=== PATIENT | female | born 1940 | race African-American/Black ===

== ENCOUNTER → 2016-04-13 | Outpatient (CLI) | payer MEDICARE ==
--- NOTE | 2016-04-13 11:10 | XR ---
EXAMINATION TYPE: XR shoulder complete LT DATE OF EXAM: 04/13/2016 10:39 AM COMPARISON: NONE HISTORY: Left shoulder pain and numbness TECHNIQUE: Shoulder examined in 3 FINDINGS: The humeral head articulates with the glenoid. The acromio-clavicular junction is normal. No acute fractures or dislocations are evident. A follow up study can be performed 7-10 days from acute trauma for continued pain. IMPRESSION: 1. Normal Shoulder
== END | disposition home or self-care (01) ==
LOC: RADXRMAIN 10:12
PROVIDERS: ATTEND Internal Medicine
DX: M25.519 Pain in unspecified shoulder (principal); M19.90 Unspecified osteoarthritis, unspecified site

== ENCOUNTER → 2016-06-16 | Outpatient (CLI) | payer MEDICARE ==
--- NOTE | 2016-06-16 15:00 | BD ---
EXAMINATION TYPE: MG DEXA axial skeleton. DATE OF EXAM: 06/16/2016 10:29 AM COMPARISON: NONE CLINICAL HISTORY: Known osteopenia, postmenopausal female Height: 63 Weight: 228 FRAX RISK QUESTIONS: Alcohol (3 or more units per day): no Family History (Parent hip fracture): no Glucocorticoids (More than 3mos): no (Ex: prednisone, prednisolone, methylprednisolone, dexamethasone, and hydrocortisone). History of Fracture in Adulthood: yes Secondary Osteoporosis: 1. Type 1 Diabetes: no 2. Hyperthyroidism: no 3. Menopause before 45: yes 4. Malnutrition: no 5. Chronic liver disease: no Rheumatoid Arthritis: no Current Tobacco Use: no RISK FACTORS HISTORY OF: Hip Fracture (Right/Left): no Spine Fracture: no History of Wrist Fracture: left wrist Surgery to Spine/Hip(right/left)/Wrist (right/left): no Family History of Osteoporosis: no Active: no Diet low in dairy products/other sources of calcium: no Postmenopausal woman: age 41 Lost more than 2 inches in height since high school: no Frequent falls: no Poor Health: no Adrenal Insufficiency: no MEDICATIONS: diabetic meds, high bp meds Thyroid Medications: synthroid How Long: many years Additional History: EXAM MEASUREMENTS: Bone mineral densitometry was performed using the Swogo System. Bone mineral density as measured about the Lumbar spine is: ----- L1-L4(G/cm2): 1.077 T Score Values are as follows: ----- L2: -0.7 ----- L3: -0.6 ----- L4: -1.0 ----- L1-L4: -0.9 Bone mineral density baseline Bone mineral density about the R hip (g/cm2): 0.773 Bone mineral density about the L hip (g/cm2): 0.845 T Score values are as follows: -----R Neck: -1.9 -----L Neck: -1.4 -----R Total: -1.9 -----L Total: -1.3 Bone mineral density baseline IMPRESSION: Osteopenia NOTE: T-SCORE=SD OF THE YOUNG ADULT MEAN.
== END | disposition home or self-care (01) ==
LOC: RADBDWWP 10:02
PROVIDERS: ATTEND Internal Medicine
DX: M85.80 Other specified disorders of bone density and structure, unspecified site (principal); M81.0 Age-related osteoporosis without current pathological fracture
CPT/HCPCS: 77080

== ENCOUNTER → 2016-10-06 | Outpatient (CLI) | payer MEDICARE ==
--- NOTE | 2016-10-11 07:53 | MM ---
Reason for exam: screening (asymptomatic). Last mammogram was performed 1 year and 1 month ago. History: Patient is postmenopausal. Physical Findings: A clinical breast exam by your physician is recommended on an annual basis and results should be correlated with mammographic findings. MG 3D Screening Mammo W/Cad Bilateral CC and MLO view(s) were taken. Prior study comparison: September 16, 2015, bilateral MG 3d screening mammo w/cad. August 07, 2014, bilateral MG screening mammo w CAD. There are scattered fibroglandular densities. No significant changes when compared with prior studies. ASSESSMENT: Benign, BI-RAD 2 RECOMMENDATION: Routine screening mammogram of both breasts in 1 year.
== END | disposition home or self-care (01) ==
LOC: RADMAMWWP 12:49
PROVIDERS: ATTEND Internal Medicine
DX: Z12.31 Encounter for screening mammogram for malignant neoplasm of breast (principal)
CPT/HCPCS: 77063; G0202

== ENCOUNTER 2016-10-12 07:22 | Day surgery (SDC) | payer MEDICARE ==
[2016-10-06 16:11] VITALS: BMI 36.7
[~2016-10-12 07:22] MED LIST: LACTATED RINGERS 1,000 ML IV SCH
[2016-10-12 07:38] VITALS: TEMP 98.1
[2016-10-12] MEDS ORDERED: LIDOCAINE 1% 20 ML VIAL (10MG/ML) FOR IV START INTRADERMA ONE (07:48)
[2016-10-12 07:49] LABS: Glucose,Whole Blood 106 mg/dL (75-99)
[2016-10-12] MEDS ORDERED: PROPOFOL 10 MG/ML 20 ML VIAL IV ONE (07:56)
--- NOTE | 2016-10-12 08:20 | P.PCN ---
Date of Procedure: 10/12/16 Preoperative Diagnosis: Postoperative Diagnosis: Procedure(s) Performed: BRIEF HISTORY: Patient is a 76-year-old pleasant female, scheduled for an elective colonoscopy as a part of variation of prior history of colon polyps. Her last colonoscopy was 3 years ago and was noted to have a tubular adenoma. PROCEDURE PERFORMED: Colonoscopy with biopsy. PREOPERATIVE DIAGNOSIS: History of colon polyps. IV sedation per Anesthesia. PROCEDURE: After informed consent was obtained, the patient, was brought into the endoscopy unit. IV sedation was administered by Anesthesia under continuous monitoring. Digital rectal examination was normal. Initially the Olympus CF- 160 flexible video colonoscope was then inserted in the rectum, gradually advanced into the cecum without any difficulty. Careful examination was performed as the scope was gradually being withdrawn. Ileocecal valve and the appendiceal orifice were visualized and appeared normal. Prep was excellent. Mucosa of the cecum, ascending colon, transverse colon, appeared normal appeared normal. The descending colon there was a 5 mL polyp that was removed by biopsy. The rest of the descending colon, sigmoid colon, and rectum appeared normal. Diffuse scattered diverticulosis seen. Retroflexion was performed in the rectum and no lesions were seen. The patient tolerated the procedure well. IMPRESSION: 5 mm descending colon polyp status post removal by biopsy. Diffuse scattered diverticulosis. RECOMMENDATIONS: Findings of this examination were discussed with the patient as well as her family. She was advised to follow with the biopsy results. If the biopsy shows a tubular adenoma she can have a repeat colonoscopy in 5 years. Implants: Indications for Procedure: Operative Findings: Description of Procedure:
[2016-10-12 08:35] VITALS: BP 146/76; PULSE 68; RESP 18
== END 2016-10-12 09:20 | disposition home or self-care (01) ==
LOC: ORWHC2ENDO 07:22
PROVIDERS: ATTEND Internal Medicine Gastroenterology
DX: Z12.11 Encounter for screening for malignant neoplasm of colon (principal); D12.4 Benign neoplasm of descending colon; K57.30 Diverticulosis of large intestine without perforation or abscess without bleeding; Z86.010 Personal history of colon polyps; I10 Essential (primary) hypertension; E78.5 Hyperlipidemia, unspecified; E11.9 Type 2 diabetes mellitus without complications; Z79.84 Long term (current) use of oral hypoglycemic drugs; E07.9 Disorder of thyroid, unspecified; M10.9 Gout, unspecified; D64.9 Anemia, unspecified; Z79.899 Other long term (current) drug therapy; Z88.8 Allergy status to other drugs, medicaments and biological substances
CPT/HCPCS: 88305; 45380; J2704

== ENCOUNTER → 2016-11-08 | Outpatient (CLI) | payer MEDICARE ==
[2016-11-08 10:40] LABS: ALT 24 U/L (9-52); AST 15 U/L (14-36); Alkaline Phosphatase 55 U/L (38-126); Anion Gap 7 mmol/L; Blood Urea Nitrogen 34 mg/dL (7-17); Calcium 10.2 mg/dL (8.4-10.2); Carbon Dioxide 27 mmol/L (22-30); Chloride 109 mmol/L (98-107); Cholesterol 188 mg/dL (<200); Glucose 117 mg/dL (74-99); HDL Cholesterol 86 mg/dL (40-60); Non-African American GFR(MDRD) 29 (>60 ml/min/1.73 sqM); Potassium 4.5 mmol/L (3.5-5.1); Sodium 143 mmol/L (137-145); Total Bilirubin 0.3 mg/dL (0.2-1.3); Total Protein 7.2 g/dL (6.3-8.2); Uric Acid 6.8 mg/dL (3.7-7.4)
[2016-11-08 10:44] LABS: CH 26.3; CHCM 30.1; HDW 2.12; HGB 9.9 gm/dL (11.4-16.0); Hypochromasia Moderate; MCH 27.1 pg (25.0-35.0); MCHC 30.9 g/dL (31.0-37.0); MCV 87.6 fL (80.0-100.0); Mean Platelet Volume 8.2; RBC 3.66 m/uL (3.80-5.40); RDW 15.9 % (11.5-15.5); WBC 6.7 k/uL (3.8-10.6)
--- NOTE | 2016-11-08 11:00 | XR ---
EXAMINATION TYPE: XR chest 2V DATE OF EXAM: 11/08/2016 COMPARISON: 12/25/2015 TECHNIQUE: PA and lateral views submitted. HISTORY: Pain FINDINGS: The lungs are clear and there is no pneumothorax, pleural effusion, or focal pneumonia. Heart is en larged and there is ectasia of the thoracic aorta. Azygos fissure noted. Arthropathy of the shoulders . Degenerative change of the spine. IMPRESSION: 1. No acute process.
[2016-11-08 13:41] LABS: Hemoglobin A1C 6.5 % (4.2-6.1)
[2016-11-08 14:44] LABS: Urine Creatinine 78.8 mg/dL
== END | disposition home or self-care (01) ==
LOC: RADXRMAIN 09:05
PROVIDERS: ATTEND Internal Medicine
DX: I11.9 Hypertensive heart disease without heart failure (principal); E11.9 Type 2 diabetes mellitus without complications; E03.9 Hypothyroidism, unspecified; M10.9 Gout, unspecified; Z00.00 Encounter for general adult medical examination without abnormal findings
CPT/HCPCS: 36415; 71020; 80053; 80061; 82043; 82570; 83036; 84439; 84443; 84550; 85027

== ENCOUNTER → 2017-03-07 | Outpatient (CLI) | payer MEDICARE ==
[2017-03-07 10:14] LABS: Anisocytosis Slight; HGB 9.9 gm/dL (11.4-16.0); Hypochromasia Slight; MCHC 30.1 g/dL (31.0-37.0); MCV 86.5 fL (80.0-100.0); Mean Platelet Volume 7.9; Platelet Count 316 k/uL (150-450); RBC 3.81 m/uL (3.80-5.40); RDW 17.3 % (11.5-15.5); WBC 5.7 k/uL (3.8-10.6)
[2017-03-07 10:41] LABS: ALT 16 U/L (9-52); AST 15 U/L (14-36); Albumin 3.6 g/dL (3.5-5.0); Alkaline Phosphatase 56 U/L (38-126); Anion Gap 8 mmol/L; Blood Urea Nitrogen 37 mg/dL (7-17); Calcium 10.5 mg/dL (8.4-10.2); Carbon Dioxide 27 mmol/L (22-30); Chloride 108 mmol/L (98-107); Cholesterol 233 mg/dL (<200); Glucose 103 mg/dL (74-99); HDL Cholesterol 84 mg/dL (40-60); LDL Cholesterol,Calculated 135 mg/dL (0-99); Potassium 4.4 mmol/L (3.5-5.1); Sodium 143 mmol/L (137-145); Total Bilirubin 0.3 mg/dL (0.2-1.3); Total Protein 7.5 g/dL (6.3-8.2); Triglycerides 71 mg/dL (<150)
[2017-03-07 10:56] LABS: T4, Free (Free Thyroxine) 1.57 ng/dL (0.78-2.19)
[2017-03-07 16:45] LABS: Hemoglobin A1C 6.5 % (4.0-6.0)
== END | disposition home or self-care (01) ==
LOC: LABWHC1 09:22
PROVIDERS: ATTEND Internal Medicine
DX: D50.9 Iron deficiency anemia, unspecified (principal); E11.9 Type 2 diabetes mellitus without complications; E78.2 Mixed hyperlipidemia; E03.9 Hypothyroidism, unspecified
CPT/HCPCS: 36415; 80053; 80061; 83036; 84439; 84443; 85027

== ENCOUNTER → 2017-10-27 | Outpatient (CLI) | payer MEDICARE ==
[2017-10-27 08:45] LABS: HCT 31.3 % (34.0-46.0); HGB 10.1 gm/dL (11.4-16.0); MCH 27.2 pg (25.0-35.0); MCHC 32.4 g/dL (31.0-37.0); MCV 84.1 fL (80.0-100.0); Mean Platelet Volume 8.4; Platelet Count 255 k/uL (150-450); RBC 3.73 m/uL (3.80-5.40); RDW 15.8 % (11.5-15.5); WBC 5.5 k/uL (3.8-10.6)
[2017-10-27 09:07] LABS: Albumin 3.3 g/dL (3.5-5.0); Calcium 9.8 mg/dL (8.4-10.2); Potassium 4.5 mmol/L (3.5-5.1); Total Bilirubin 0.4 mg/dL (0.2-1.3); Total Protein 7.2 g/dL (6.3-8.2)
--- NOTE | 2017-10-27 09:11 | XR ---
EXAMINATION TYPE: XR chest 2V DATE OF EXAM: 10/27/2017 COMPARISON: 11/08/2016 HISTORY: Shortness of breath TECHNIQUE: Frontal and lateral views of the chest are obtained. FINDINGS: Scattered senescent parenchymal changes noted. Hyperinflation compatible with COPD. No evidence for infiltrate. No evidence for atelectasis. Heart size is stable. Mediastinal structures are stable and grossly unremarkable. No evidence for hilar prominence. Degenerative changes dorsal spine. IMPRESSION: 1. No evidence for acute pulmonary disease.
[2017-10-27 09:22] LABS: T4, Free (Free Thyroxine) 1.54 ng/dL (0.78-2.19)
[2017-10-27 17:15] LABS: Hemoglobin A1C 6.4 % (4.0-6.0)
== END ==
LOC: LABWHC1 08:13
PROVIDERS: ATTEND Internal Medicine
DX: R05 Cough (principal); Z00.00 Encounter for general adult medical examination without abnormal findings; I11.9 Hypertensive heart disease without heart failure; E11.9 Type 2 diabetes mellitus without complications; E03.9 Hypothyroidism, unspecified; E78.2 Mixed hyperlipidemia
CPT/HCPCS: 36415; 71046; 80053; 80061; 82043; 82570; 83036; 84439; 84443; 85027

== ENCOUNTER → 2018-07-12 | Outpatient (CLI) | payer MEDICARE ==
[2018-07-12 17:23] LABS: Anion Gap 6.3 mmol/L (4.00-12.00); Calcium 9.9 mg/dL (8.7-10.3); Carbon Dioxide 25.7 mmol/L (21.6-31.8); Potassium 4.6 mmol/L (3.5-5.5)
[2018-07-12 18:22] LABS: Hemoglobin A1C 6.8 % (4.0-6.0)
== END | disposition home or self-care (01) ==
LOC: LABWHC1 08:35
PROVIDERS: ATTEND Internal Medicine
DX: E78.2 Mixed hyperlipidemia (principal); I11.9 Hypertensive heart disease without heart failure; E11.9 Type 2 diabetes mellitus without complications
CPT/HCPCS: 36415; 80048; 80061; 83036

== ENCOUNTER → 2018-08-03 | Outpatient (CLI) | payer MEDICARE ==
[2018-08-03 11:23] LABS: Anisocytosis Slight; Appearance,Urine Cloudy (Clear); Bacteria,Urine Moderate /hpf; Bilirubin,Urine Negative (Negative); Blood,Urine Negative (Negative); Color,Urine Light Yellow; Glucose,Urine (UA) Negative (Negative); HCT 29.8 % (34.0-46.0); HGB 9.1 gm/dL (11.4-16.0); Ketones,Urine Negative (Negative); Leukocyte Esterase,Urine Negative (Negative); MCH 25.6 pg (25.0-35.0); MCHC 30.5 g/dL (31.0-37.0); MCV 83.8 fL (80.0-100.0); Mean Platelet Volume 7.8; Mucus,Urine Rare /hpf; Nitrite,Urine Negative (Negative); PH, Urine 5.5 (5.0-8.0); Platelet Count 269 k/uL (150-450); Protein,Urine 2+ (Negative); RBC 3.55 m/uL (3.80-5.40); RBC,Urine 1 /hpf (0-5); RDW 16.6 % (11.5-15.5); Specific Gravity,Urine 1.011 (1.001-1.035); Squamous Epithelial Cell,Urine 9 /hpf (0-4); Urobilinogen,Urine <2.0 mg/dL (<2.0); WBC 6.1 k/uL (3.8-10.6); WBC,Urine 2 /hpf (0-5)
[2018-08-03 15:50] LABS: African American GFR (CKD) 21.7 (60.0-200.0); Albumin 3.5 g/dL (3.80-4.90); Albumin/Globulin Ratio 1.09 (1.60-3.17); Anion Gap 6.9 mmol/L (4.00-12.00); BUN/Creat Ratio 18.33 Ratio (12.00-20.00); Carbon Dioxide 22.1 mmol/L (21.6-31.8); Globulin 3.2 g/dL (1.6-3.3); Phosphorus 3.7 mg/dL (2.4-5.1); Potassium 4.3 mmol/L (3.5-5.5); Total Bilirubin 0.4 mg/dL (0.3-1.2); Total Protein 6.7 g/dL (6.2-8.2)
[2018-08-03 18:42] LABS: Total Volume 24 Hour,Urine 1300 mL
[2018-08-03 19:48] LABS: Total Protein 24 Hour,Urine 1067.3 mg/24Hr
== END | disposition home or self-care (01) ==
LOC: LABWHC1 09:59
PROVIDERS: ATTEND Internal Medicine
DX: E11.9 Type 2 diabetes mellitus without complications (principal); I11.9 Hypertensive heart disease without heart failure; R94.4 Abnormal results of kidney function studies
CPT/HCPCS: 36415; 80053; 81001; 81050; 82575; 84100; 84156; 85027

== ENCOUNTER → 2018-12-31 | Outpatient (CLI) | payer MEDICARE ==
[2018-12-31 10:42] LABS: INR 0.9 (<1.2); Partial Thromboplastin Time 24.9 sec (22.0-30.0); Prothrombin Time 9.6 sec (9.0-12.0)
[2018-12-31 10:46] LABS: Anisocytosis Slight; Basophils # (A) 0.1 k/uL (0-0.2); Basophils % (A) 2 %; Eosinophils # (A) 0.1 k/uL (0-0.7); Eosinophils % (A) 2 %; HGB 8.4 gm/dL (11.4-16.0); Lymphocytes # (A) 1.4 k/uL (1.0-4.8); Lymphocytes % (A) 27 %; MCH 26.5 pg (25.0-35.0); MCV 85.6 fL (80.0-100.0); Monocytes # (A) 0.4 k/uL (0-1.0); Monocytes % (A) 7 %; Neutrophils # (A) 3.1 k/uL (1.3-7.7); Neutrophils % (A) 59 %; Platelet Count 260 k/uL (150-450); RBC 3.15 m/uL (3.80-5.40); WBC 5.2 k/uL (3.8-10.6)
[2018-12-31 11:17] LABS: Potassium 4.5 mmol/L (3.5-5.1)
== END | disposition home or self-care (01) ==
LOC: LABWHC1 09:29
PROVIDERS: ATTEND Internal Medicine
DX: R80.9 Proteinuria, unspecified (principal); Z79.01 Long term (current) use of anticoagulants
CPT/HCPCS: 36415; 80051; 82565; 84520; 85025; 85610; 85730

== ENCOUNTER 2019-01-01 08:01 | Day surgery (SDC) | payer MEDICARE ==
[2019-01-01] MEDS ORDERED: ALPRAZolam 0.25 MG TAB PO STA (08:31)
[2019-01-01 08:50] VITALS: TEMP 98.1
[2019-01-01] MEDS ORDERED: DESMOPRESSIN ACETATE 30 MCG in SODIUM CHLORIDE 0.9% 50 ML IV ONE (09:30)
--- NOTE | 2019-01-01 12:08 | CT ---
DATE OF EXAM: 01/01/2019 COMPARISON: NONE CT DLP: 1333 mGycm HISTORY: Renal failure PROCEDURE: Maximal barrier technique was utilized. After informed consent, the skin overlying a suit able path to the right kidney was localized using CT guidance, the skin was prepped and draped. Lido kenneth was used for local anesthesia. A skin carolyn made with a scalpel. Using CT guidance, a 17-gauge needle was advanced into in position at the lateral and inferior cortex of the right kidney where co axial placement of an 18-gauge needle was used and core biopsy obtained. 4 passes made in total. He mostasis was achieved. There was no immediate complication and patient remained in stable condition. Specimen submitted to Pathology. IMPRESSION: Status post CT guided core biopsy of right renal cortex, pathology pending. This procedu re performed by the undersigned.
[2019-01-01 12:47] VITALS: RESP 16
[2019-01-01 13:35] VITALS: BP 167/86; PULSE 82
== END 2019-01-01 14:00 | disposition home or self-care (01) ==
LOC: RADPROMAIN 08:01
PROVIDERS: ATTEND Nurse Practitioner Family
DX: E11.21 Type 2 diabetes mellitus with diabetic nephropathy (principal)
CPT/HCPCS: 86900; 86901; 86850; 50200; 77012; J2597; 88305; 88313; 88346; 88348; 88350

== ENCOUNTER 2019-10-30 11:35 | Day surgery (SDC) | payer MEDICARE ==
[2019-10-29 10:20] VITALS: BMI 34.7
[~2019-10-30 11:35] MED LIST changes: +DEXAMETHASONE SOD PHOSPHATE 10 MG/ML 1 ML VIAL IV ONE; +HYDROmorphone 0.5 MG/0.5 ML SYRINGE IVP PRN; +ONDANSETRON 4 MG/2 ML VIAL IVP ONE; +fentaNYL (PF) 50 MCG/ML 2 ML AMP IV PRN; +fentaNYL (PF) 50 MCG/ML 2 ML AMP IVP PRN
[2019-10-30 12:09] VITALS: TEMP 97.2
[2019-10-30] MEDS ORDERED: SODIUM CHLORIDE 0.9% 1,000 ML IV ONE ×2 (12:10→15:00)
[2019-10-30] MEDS ORDERED: LIDOCAINE 1% (10MG/ML) FOR IV START INTRADERMA ONE (12:11)
[2019-10-30] MEDS ORDERED: MIDAZOLAM 2 MG/2 ML VIAL IVP ONE (12:27)
--- NOTE | 2019-10-30 13:02 | P.ANPRN ---
Procedure Note - Anesthesia - Nerve Block Performed Left Supraclavicular Single Time Out Performed: Yes Date of Procedure: 10/30/19 Procedure Start Time: 12: Procedure Stop Time: :34 Location of Patient: PreOp Indication: Acute Post-Operative Pain, Requested by Surgeon Sedation Type: Sedate with meaningful contact maintained Preparation: Sterile Prep, Sterile Dressing Position: Supine Catheter: None Needle Types: Pajunk Needle Gauge: 20, 21 Ultrasound used to visualize needle placement: Yes Ultrasound used to observe medication spread: Yes Injectate: 0.5% Ropivacaine (see comment for volume) (30 ml + decadron 4 mg) Blood Aspirated: No Pain Paresthesia on Injection Noted: No Resistance on Injection: Normal Image Stored and Saved: Yes Events: Uneventful and Well Tolerated
[2019-10-30] MEDS ORDERED: GLYCOPYRROLATE 0.2 MG/ML 2 ML VIAL ONE (13:25)
[2019-10-30] MEDS ORDERED: fentaNYL (PF) 50 MCG/ML 2 ML AMP ONE (13:25)
[2019-10-30] MEDS ORDERED: HEPARIN SODIUM,PORCINE 5,000 UNIT/ML 1 ML VIAL ONE (13:25)
[2019-10-30] MEDS ORDERED: MIDAZOLAM 2 MG/2 ML VIAL ONE (13:25)
[2019-10-30] MEDS ORDERED: ROPIVACAINE 5 MG/ML 30 ML VIAL ONE (13:25)
[2019-10-30] MEDS ORDERED: PROPOFOL 10 MG/ML 20 ML VIAL IV ONE (13:25)
[2019-10-30] MEDS ORDERED: DEXAMETHASONE SOD PHOSPHATE 4 MG/ML 1 ML VIAL ONE (13:25)
[2019-10-30] MEDS ORDERED: LIDOCAINE 1% INJ 10MG/ML (20 ML MDV) ONE (13:25)
[2019-10-30] MEDS ORDERED: SODIUM CHLORIDE 0.9% 500 ML 500 ML with HEPARIN SODIUM,PORCINE 2,000 UNIT IV ONE ×2 (14:15)
[2019-10-30] MEDS ORDERED: ceFAZolin 2,000 MG in SODIUM CHLORIDE 0.9% 500 ML IRRIGATION ONE (14:15)
[2019-10-30] MEDS ORDERED: LIDOCAINE 1% INJ 10MG/ML (20 ML MDV) SQ ONE ×2 (14:34)
[2019-10-30] MEDS ORDERED: BUPIVACAINE (PF) 0.5% 30 ML VIAL SQ ONE ×2 (14:34)
[2019-10-30] MEDS ORDERED: THROMBIN (BOVINE) 5,000 UNIT VIAL TOPICAL ONE (15:26)
[2019-10-30] MEDS ORDERED: GELATIN SPONGE,ABSORB (LARGE) 1 EACH SPONGE TOPICAL ONE (15:26)
--- NOTE | 2019-10-30 16:29 | P.OP ---
Date of Procedure: 10/30/19 Description of Procedure: Preoperative diagnosis: [End-stage renal disease, soon to require dialysis] Postoperative diagnosis: Same Procedure: [Left upper extremity brachial artery to axillary vein graft] Surgeon: Vero Lea D.O. Anesthesia: Regional anesthetic with Mac EBL: [20 mL] IV fluids: [See anesthesia records] Urine output: [Not measured] Drains: [None] Complications: [None immediately apparent] Condition: [Stable to recovery] Operative indication and findings: [The patient is an 79-year-old female with chronic kidney disease who is going to soon be requiring dialysis therefore her hair dresser sent her for access placement. She had an ultrasound in the office which showed no adequate sizable veins in her upper extremity for fistula creation therefore a graft was chosen. Risks and benefits were discussed. She seemingly understood and was willing to proceed.] Procedure in detail: [Patient was taken to the operative suite and placed in supine position. The left upper extremity is prepped and draped in usual sterile fashion. A preprocedure timeout was performed, all parties are in agreement. The brachial artery just proximal to the antecubital space was identified on palpation and a longitudinal incision was made. It carried down with electrocautery to the fascia. The fascia was incised. The artery was identified and encircled with vessel loops. Attention was then turned to the axillary vein, previously marked portion of the location and identified with ultrasound area incision was made and the subcutaneous tissues were divided with electrocautery. The vein was identified and overlying branching veins were ligated with 3-0 silk. The vein was dissected free for a short course allow for an anastomosis and proper clamps. At that point the proposed tunnel was anesthetized and a tunneler was utilized a 4 x 7 PTFE graft was tunneled. The patient was then heparinized with 3000 units of heparin. After proper circulation of the heparin, the flow was occluded through the brachial artery. An arteriotomy was created and a large the Heather scissors to 6 mm. The anastomosis was created with 6-0 Prolene. Prior to completion of the anastomoses the arteries allowed to backbleed and flush through the graft. The anastomosis was completed. Thrombin Gelfoam was placed for hemostasis. The graft itself was flushed and flow was occluded through the graft. A Satinsky clamp was used on the vein and a venotomy was performed a large the Watts scissors. The graft was cut to proper size. A and anastomosis was created with 6-0 Prolene. Prior to completion anastomosis the clamp was removed and with a lot of backbleed. The anastomosis was completed. Flow was resumed through the graft itself which showed a good palpable thrill and good augmentation. The radial pulse remained Easilypalpable. Both areas were copiously irrigated with antibiotic solution.The subcutaneous tissues were reapproximated with 3-0 Vicryl. The skin was reapproximated with 4-0 Monocryl in running fashion. Skin glue was placed. A light dressing was placed. The patient allowed to awaken and transferred back to recovery in stable condition having tolerated her procedure well.] Plan - Discharge Summary Discharge Rx Participant: Yes New Discharge Prescriptions: New HYDROcodone/APAP 5-325MG [[place] 5-325] 1 tab PO Q6HR PRN 3 Days #12 tab PRN Reason: Pain No Action Gabapentin [Neurontin] 300 mg PO TID Ferrous Sulfate [Feosol] 325 mg PO DAILY Allopurinol [Zyloprim] 150 mg PO HS Atorvastatin [Lipitor] 20 mg PO DAILY amLODIPine [Norvasc] 10 mg PO HS Aspirin [Adult Low Dose Aspirin EC] 81 mg PO DAILY calcitrioL [Calcitriol] 0.25 mcg PO DAILY Omeprazole [PriLOSEC] 40 mg PO DAILY Levothyroxine Sodium 150 mcg PO QAM hydrALAZINE HCL [Apresoline] 100 mg PO TID Furosemide [Lasix] 20 mg PO DAILY Discharge Medication List Allopurinol [Zyloprim] 150 mg PO HS 12/25/15 [History] Ferrous Sulfate [Feosol] 325 mg PO DAILY 12/25/15 [History] Gabapentin [Neurontin] 300 mg PO TID 12/25/15 [History] Atorvastatin [Lipitor] 20 mg PO DAILY 10/06/16 [History] Aspirin [Adult Low Dose Aspirin EC] 81 mg PO DAILY 12/24/18 [History] amLODIPine [Norvasc] 10 mg PO HS 12/24/18 [History] calcitrioL [Calcitriol] 0.25 mcg PO DAILY 12/24/18 [History] Furosemide [Lasix] 20 mg PO DAILY 10/29/19 [History] Levothyroxine Sodium 150 mcg PO QAM 09/22/20 [History] Omeprazole [PriLOSEC] 40 mg PO DAILY 10/29/19 [History] hydrALAZINE HCL [Apresoline] 100 mg PO TID 10/29/19 [History] HYDROcodone/APAP 5-325MG [[place] 5-325] 1 tab PO Q6HR PRN 3 Days #12 tab 10/30/19 [Rx] Follow up Appointment(s)/Referral(s): Vero Lea DO [STAFF PHYSICIAN] - 2 Weeks Activity/Diet/Wound Care/Special Instructions: Remove wrap in 48h, may shower once removed. Discharge Disposition: HOME SELF-CARE
[2019-10-30 17:07] VITALS: BP 157/87; PULSE 68; RESP 20
== END 2019-10-30 17:30 | disposition home or self-care (01) ==
LOC: OR 11:35
PROVIDERS: ATTEND Surgery
DX: I12.0 Hypertensive chronic kidney disease with stage 5 chronic kidney disease or end stage renal disease (principal); E07.9 Disorder of thyroid, unspecified; K21.9 Gastro-esophageal reflux disease without esophagitis; Z79.82 Long term (current) use of aspirin; Z79.899 Other long term (current) drug therapy; Z88.8 Allergy status to other drugs, medicaments and biological substances
CPT/HCPCS: 36830; 64415; L8670; J2250; J1644; J1100 ×2; J0690 ×2; J2405; J2001; J3010; J2795; J2704; 64999

== ENCOUNTER 2019-12-22 17:38 | Inpatient (IN) | payer MEDICARE ==
[2019-12-22] MEDS ORDERED: FUROSEMIDE 10 MG/ML 4 ML VIAL IV STA (17:53)
[2019-12-22 18:26] LABS: ABG Base Excess -4.9 mmol/L; ABG HCO3 21 mmol/L (21-25); ABG Oxygen Saturation 78.7 % (94-97); ABG PCO2 40 mmHg (35-45); ABG PH 7.33 (7.35-7.45); ABG TCO2 22 mmol/L (19-24); Allen Test Performed? Yes
[2019-12-22 18:28] LABS: Albumin 3.1 g/dL (3.5-5.0); Calcium 10.2 mg/dL (8.4-10.2); Magnesium 1.9 mg/dL (1.6-2.3); Potassium 5.1 mmol/L (3.5-5.1); Total Protein 6.7 g/dL (6.3-8.2)
[2019-12-22 18:32] LABS: ABG PO2 46 mmHg (83-108)
--- NOTE | 2019-12-22 19:04 | XR ---
EXAMINATION TYPE: XR chest 1V portable DATE OF EXAM: 12/22/2019 COMPARISON: 10/27/2017 HISTORY: Short of breath TECHNIQUE: FINDINGS: There is moderate pulmonary airspace edema. Heart is enlarged. There are chest leads. Bony thorax is intact. IMPRESSION: Moderately severe pulmonary edema could relate to acute heart failure or RDS and is a sig nificant change compared to old exam.
[2019-12-22] MEDS ORDERED: NALOXONE 0.4 MG/ML 1 ML VIAL IV PRN (19:05)
--- NOTE | 2019-12-22 19:05 | ED ---
SOB HPI - General Chief Complaint: Shortness of Breath Stated Complaint: weakness & needs dialysis Time Seen by Provider: 12/22/19 17:40 Source: patient, EMS Mode of arrival: EMS Limitations: no limitations - History of Present Illness Initial Comments: Patient presents with shortness of breath. She has a history of kidney failure. She has not initiated dialysis yet, but she does have a fistula in the left upper extremity. She has no headache. She has no fevers or chills. She has no weakness. She has no lightheadedness or dizziness. She has no nausea or vomiting or diaphoresis. - Related Data Home Medications Medication Instructions Recorded Confirmed Allopurinol [Zyloprim] 150 mg PO HS 12/25/15 12/19/19 Ferrous Sulfate [Feosol] 325 mg PO DAILY 12/25/15 12/19/19 Gabapentin [Neurontin] 300 mg PO TID 12/25/15 12/19/19 Atorvastatin [Lipitor] 20 mg PO DAILY 10/06/16 12/19/19 Aspirin [Adult Low Dose Aspirin EC] 81 mg PO DAILY 12/24/18 12/19/19 amLODIPine [Norvasc] 10 mg PO HS 12/24/18 12/19/19 calcitrioL [Calcitriol] 0.25 mcg PO DAILY 12/24/18 12/19/19 Furosemide [Lasix] 20 mg PO DAILY 10/29/19 12/19/19 Levothyroxine Sodium 150 mcg PO QAM 10/29/19 12/19/19 Omeprazole [PriLOSEC] 40 mg PO DAILY 10/29/19 12/19/19 hydrALAZINE HCL [Apresoline] 100 mg PO TID 10/29/19 12/19/19 Previous Rx's Medication Instructions Recorded HYDROcodone/APAP 5-325MG [[place] 1 tab PO Q6HR PRN 3 Days #12 tab 10/30/19 5-325] Allergies Allergy/AdvReac Type Severity Reaction Status Date / Time Intravenous Iron Allergy Rash/Hives Uncoded 12/19/19 13:49 Review of Systems ROS Statement: Those systems with pertinent positive or pertinent negative responses have been documented in the HPI. ROS Other: All systems not noted in ROS Statement are negative. Past Medical History Past Medical History: Diabetes Mellitus, Dialysis, Hypertension, Renal Disease, Thyroid Disorder Additional Past Medical History / Comment(s): Hx anemia;. carpal tunnel. Gout History of Any Multi-Drug Resistant Organisms: None Reported Past Surgical History: Section, Hysterectomy, Tubal Ligation Additional Past Surgical History / Comment(s): plan for kidney biopsy 01/01/19, right knee surgery Past Anesthesia/Blood Transfusion Reactions: No Reported Reaction Past Psychological History: No Psychological Hx Reported Smoking Status: Never smoker Past Alcohol Use History: Occasional Past Drug Use History: None Reported - Past Family History Mother Family Medical History: Diabetes Mellitus, Hypertension Additional Family Medical History / Comment(s): mother is Father Family Medical History: Chest Pain / Angina, Coronary Artery Disease (CAD), CVA/TIA Additional Family Medical History / Comment(s): father is Brother(s) Family Medical History: Cancer Additional Family Medical History / Comment(s): prostate Sister(s) Family Medical History: Cancer Additional Family Medical History / Comment(s): stomach General Exam Limitations: no limitations General appearance: alert, anxious Head exam: Present: atraumatic Eye exam: Present: normal appearance, PERRL ENT exam: Present: normal exam, normal oropharynx Neck exam: Present: normal inspection. Absent: tenderness Respiratory exam: Present: respiratory distress, rales, rhonchi Cardiovascular Exam: Present: tachycardia GI/Abdominal exam: Present: soft. Absent: tenderness Rectal exam: Present: deferred Extremities exam: Present: normal inspection, full ROM, pedal edema. Absent: tenderness Back exam: Present: normal inspection, full ROM. Absent: tenderness, CVA tend erness (R) Neurological exam: Present: alert, oriented X3 Psychiatric exam: Present: normal affect, normal mood Skin exam: Present: warm, dry Course Vital Signs 12/22/19 12/22/19 12/22/19 17:39 17:47 18:38 Temperature 98.6 F Pulse Rate 152 H 118 H Respiratory 26 H 32 H 24 Rate Blood Pressure 170/96 139/116 O2 Sat by Pulse 92 L Oximetry Medical Decision Making - Medical Decision Making patient presents with shortness of breath. We will consult nephrology. Chest x-ray shows pulmonary edema. I spoke with the pattern painter as well. Patient will be admitted to the ICU. - Lab Data Result diagrams: 12/22/19 18:10 Lab Results 12/22/19 12/22/19 12/22/19 Range/Units 18:10 18:10 18:10 Sample Site ABG pH (7.35-7.45) ABG pCO2 (35-45) mmHg ABG pO2 (83-108) mmHg ABG HCO3 (21-25) mmol/L ABG Total CO2 (19-24) mmol/L ABG O2 Saturation (94-97) % ABG Base Excess mmol/L Jimenez Test FiO2 % Sodium 137 (137-145) mmol/L Potassium 5.1 (3.5-5.1) mmol/L Chloride 113 H (98-107) mmol/L Carbon Dioxide 18 L (22-30) mmol/L Anion Gap 6 mmol/L BUN 60 H (7-17) mg/dL Creatinine 3.41 H (0.52-1.04) mg/dL Est GFR (CKD-EPI)AfAm 14 (>60 ml/min/1.73 sqM) Est GFR (CKD-EPI)NonAf 12 (>60 ml/min/1.73 sqM) Glucose 151 H (74-99) mg/dL Calcium 10.2 (8.4-10.2) mg/dL Magnesium 1.9 (1.6-2.3) mg/dL Total Bilirubin 1.0 (0.2-1.3) mg/dL AST 49 H (14-36) U/L ALT 24 (4-34) U/L Alkaline Phosphatase 33 L (38-126) U/L Troponin I 0.291 H* (0.000-0.034) ng/mL NT-Pro-B Natriuret Pep 8660 pg/mL Total Protein 6.7 (6.3-8.2) g/dL Albumin 3.1 L (3.5-5.0) g/dL 12/22/19 Range/Units 18:24 Sample Site Right Radial ABG pH 7.33 L (7.35-7.45) ABG pCO2 40 (35-45) mmHg ABG pO2 46 L* (83-108) mmHg ABG HCO3 21 (21-25) mmol/L ABG Total CO2 22 (19-24) mmol/L ABG O2 Saturation 78.7 L (94-97) % ABG Base Excess -4.9 mmol/L Jimenez Test Yes FiO2 40 % Sodium (137-145) mmol/L Potassium (3.5-5.1) mmol/L Chloride (98-107) mmol/L Carbon Dioxide (22-30) mmol/L Anion Gap mmol/L BUN (7-17) mg/dL Creatinine (0.52-1.04) mg/dL Est GFR (CKD-EPI)AfAm (>60 ml/min/1.73 sqM) Est GFR (CKD-EPI)NonAf (>60 ml/min/1.73 sqM) Glucose (74-99) mg/dL Calcium (8.4-10.2) mg/dL Magnesium (1.6-2.3) mg/dL Total Bilirubin (0.2-1.3) mg/dL AST (14-36) U/L ALT (4-34) U/L Alkaline Phosphatase (38-126) U/L Troponin I (0.000-0.034) ng/mL NT-Pro-B Natriuret Pep pg/mL Total Protein (6.3-8.2) g/dL Albumin (3.5-5.0) g/dL 12/22/19 19:03 twelve-lead EKG shows ventricular rate 120 bpm, normal IN interval, normal QRS complexes, no ST elevation or depression, interpreted by me as sinus tachycardia. 12/22/19 19:04 Critical Care Time Critical Care Time: Yes Total Critical Care Time: 35 Disposition Clinical Impression: Acute pulmonary edema Disposition: ADMITTED IP TO THIS HOSP Condition: Serious Is patient prescribed a controlled substance at d/c from ED?: No Referrals: Shimon Angeles MD [Primary Care Provider] - 1-2 days
[2019-12-22] MEDS ORDERED: FUROSEMIDE 10 MG/ML 10 ML VIAL IV STA (19:10)
[2019-12-22 19:32] LABS: INR 0.9 (<1.2); Partial Thromboplastin Time 25.1 sec (22.0-30.0); Prothrombin Time 9.5 sec (9.0-12.0)
[2019-12-22 20:44] LABS: Anisocytosis Slight; Basophils % (A) 0 %; Eosinophils % (A) 0 %; HCT 35.4 % (34.0-46.0); HGB 10.8 gm/dL (11.4-16.0); Hypochromasia Slight; Lymphocytes # (A) 0.3 k/uL (1.0-4.8); Lymphocytes % (A) 2 %; MCH 26.2 pg (25.0-35.0); MCHC 30.5 g/dL (31.0-37.0); Microcytosis Slight; Monocytes # (A) 0.3 k/uL (0-1.0); Monocytes % (A) 3 %; Neutrophils % (A) 95 %; Platelet Count 123 k/uL (150-450); RBC 4.12 m/uL (3.80-5.40); RDW 19.9 % (11.5-15.5); WBC 12.7 k/uL (3.8-10.6)
[2019-12-22] MEDS: amLODIPine 10 MG TAB PO SCH (21:29)
[2019-12-22] MEDS: DOCUSATE 100 MG CAP PO SCH (21:29)
[2019-12-22] MEDS ORDERED: GABAPENTIN 300 MG CAP PO SCH (22:00)
[2019-12-23] MEDS: hydrALAZINE HCL 50 MG TAB PO SCH ×3 (01:04→17:46)
--- NOTE | 2019-12-23 01:40 | HP ---
HISTORY AND PHYSICAL DATE OF SERVICE: 12/22/2019. In the ICU where the patient currently will stay overnight until bed in the ICU is available. She is currently in the ER room 3. As patient is seen and evaluated today her data is age [age] years old, female. She is FULL CODE. NEW DATA: Her BMI is 34.3. Her height 5 feet 4 inches, weight 90.718 and BSA 1.96 meters square. The patient presented to the emergency room with severe shortness of breath and she was hypoxic at the same time when they did the chest x-ray found acute pulmonary edema. CHIEF COMPLAINT: Patient complained of severe shortness of breath, was progressive over the last 3 days. HISTORY OF PRESENT ILLNESS: Mrs. Sujey Liao 79 years old female has been suffering from various medical problem with the underlying history of progressive losing of the function of the kidneys and the start of her on the left arm fistula for future dialysis and the patient stated that in the last 3 days, she became short of breath progressively and her facial swelling as well until she decided to come to the emergency room at [facility]. In the emergency room, found that she had hypoxic, hypertensive, and also the chest x- ray indicating acute pulmonary edema and she had acute congestive heart failure with the underlying GFR dropped to 14, and her electrolyte is also indicating her BUN 60, creatinine 3.41. Her potassium 5.1. They did also ABGs, found that she has mild metabolic acidosis with the compensation and she had an ABGs 7.37, pCO2 was 40, and pO2 was 46 and oxygen saturation was 78.7 on admission and a base excess -4.9 with the FiO2 was 40. At that time, patient placed on BiPAP and they called the senior shipping clerk, Dr. Florence, to be admitted to the ICU. Also, they did call with a history of fistula in the left arm as well as chronic kidney disease stage 4 and passing to stage 5 may need dialysis as well. She currently on BiPAP with saturation 95% and on 6 L flow rate with the FiO2 60%, with the mean blood pressure 112 and blood pressure 168/85. Her history of present illness, she has underlying complicated problem with the underlying acute renal failure on the top of chronic with the acute kidney injury, diabetes mellitus type 2, hypertension and thyroid disease with hypothyroidism. Her previous history, past medical history of surgery, she had a hysterectomy, tubal ligation, kidney biopsy on 01/01/2019, the result is not available to me at the time of dictation; however, will be with the Nephrology, right knee surgery. FAMILY HISTORY: Her mother had diabetes mellitus, hypertension, and her brother had prostate cancer as well as family member of chest pain, angina and coronary artery disease, CVA, TIA, and her sister has stomach illness, unclear etiology. CURRENT LIST OF MEDICATIONS: She is on: 1. Allopurinol 150 mg once a day. 2. Ferrous sulfate 325 mg once a day. 3. Gabapentin 300 mg t.i.d. 4. Atorvastatin 20 mg at bedtime. 5. She is on aspirin 81 mg once a day after meal. 6. Amlodipine 10 mg at bedtime. 7. She is also on calcitriol 0.25 mcg daily. 8. Lasix 20 mg daily. 9. Levothyroxine 150 mcg in the morning a.c. breakfast. 10.She is also on omeprazole for GERD disease a.c. meals. REVIEW OF SYSTEMS: On the reviewing of the systems, the patient only able to communicate not freely with the using of the BiPAP and at this time, she said she was short of breath and for the last 3 days and progressively worsening and she was eating and drinking fluid. Otherwise, she has no GI symptoms. No symptoms. No cardiac symptoms. However, the troponin was found to be mildly elevated and we will be consulting Cardiology and repeating the troponin. On the respiratory, she has short of breath and tachycardia and the hypertension is elevated. The GI as mentioned, no nausea, vomiting, or diarrhea. Musculoskeletal generalized weakness and that she was expressed. Her endocrine, she had hypothyroidism. The rest of the review of systems was noncontributory. PHYSICAL EXAMINATION: The patient is able to respond to me. She is conscious, alert. Her vital signs were temperature on admission 98.6, and pulse rate was tachycardic and 152 with the respiratory rate also tachypneic with 26 per minute and her blood pressure 170/96, and her oxygen saturation 92% with hypoxemia. On the physical exam, patient as mentioned conscious, alert and today her daughter did call me at home and I did discuss with her the possibilities as well as dialysis if needed and they already contacted Dr. Zamarripa, the utility systems repairer operator, and he will be starting with the Lasix as he gave her IV 100 mg of Lasix and followed by p.o. [address] Padron and Dr. Bermudez will see her and see if any further treatment including dialysis or not. On the exam, head was normocephalic, atraumatic. Pupils equal, reactive. She is on BiPAP on it for breathing. The neck was supple. She had the chest x-ray, I did look at it personally and she has acute pulmonary edema with flooding of her lung and whitish infiltrate bilaterally. The heart was regular sinus rhythm with tachycardia and has history of atrial fibrillation. The abdomen is soft, obese, positive bowel sounds. No organ enlargement. Extremities: She had no pitting edema, but she has soft tissue edema and puffiness of the eyelid and the face and gamez looking as gamez face. No neurological deficit and she is weak. LABORATORY: Review of the laboratory, the thyroid was not done and her troponin was 0.291 and we consulting the Cardiology for evaluation. Her albumin 3.1, total protein 6.7. Her AST 49 and ALT 24, bilirubin is 1, magnesium 1.9. Her sodium 137, potassium 5.1, chloride 113 and the carbon dioxide 18 with the underlying metabolic acid acidosis, mild, secondary to kidney disease. She has a BUN of 60 and creatinine 3.41, and blood sugar 151. Otherwise the EKG is sinus tachycardia. ASSESSMENT: 1. Acute pulmonary edema and the etiology could be associated with sudden onset of atrial fibrillation, however, is not atrial fibrillation at the time of presentation in the ER and it is tachycardia only. 2. Chronic kidney disease stage 4 and probably decompensated with the possible need for dialysis with the potassium is borderline with the GFR is 14, as well as the creatinine baseline 3.41. 3. On the auscultation of the chest, she has decreased air entry with bilateral rales and rhonchi 2/3 of the lung when auscultation posteriorly. 4. With the underlying chronic kidney disease, acute kidney injury as well considered and metabolic acidosis secondary to kidney disease and with the abnormal troponin, we will proceed with Cardiology consult and as well as repeat the troponin as well. Further treatment depends on the patient condition. MMODL / IJN: [id number] /
[2019-12-23 04:17] LABS: Calcium 10.2 mg/dL (8.4-10.2); Potassium 4.7 mmol/L (3.5-5.1)
[2019-12-23 04:26] LABS: Anisocytosis Slight; Basophils % (A) 0 %; Eosinophils % (A) 0 %; HCT 34.4 % (34.0-46.0); HGB 10.5 gm/dL (11.4-16.0); Hypochromasia Slight; Lymphocytes # (A) 0.9 k/uL (1.0-4.8); Lymphocytes % (A) 8 %; MCH 25.9 pg (25.0-35.0); MCHC 30.5 g/dL (31.0-37.0); MCV 84.9 fL (80.0-100.0); Mean Platelet Volume 7.9; Microcytosis Slight; Monocytes # (A) 0.3 k/uL (0-1.0); Monocytes % (A) 3 %; Neutrophils # (A) 10.5 k/uL (1.3-7.7); Neutrophils % (A) 89 %; RBC 4.05 m/uL (3.80-5.40); WBC 11.8 k/uL (3.8-10.6)
[2019-12-23 05:42] LABS: Anisocytosis (M) Present; Platelet Count 89 k/uL (150-450); Target Cells Present
[2019-12-23] MEDS: ATORVASTATIN 20 MG TAB PO SCH ×2 (08:25→08:26)
[2019-12-23] MEDS: ASPIRIN 81 MG PO SCH (08:25)
[2019-12-23] MEDS: FERROUS SULFATE 325 MG TAB PO SCH (08:25)
[2019-12-23] MEDS: LEVOTHYROXINE 75 MCG TAB PO SCH (08:26)
[2019-12-23] MEDS ORDERED: FUROSEMIDE 20 MG TAB PO SCH (09:00)
[2019-12-23] MEDS ORDERED: FUROSEMIDE 10 MG/ML 10 ML VIAL IV STA (09:56)
[2019-12-23] MEDS: FUROSEMIDE 10 MG/ML 10 ML VIAL IV SCH ×2 (10:05→21:40)
[2019-12-23] MEDS: METOPROLOL TARTRATE 25 MG TAB PO SCH ×2 (10:06→21:54)
[2019-12-23] MEDS: DOCUSATE 100 MG CAP PO SCH ×2 (10:06→21:54)
--- NOTE | 2019-12-23 11:00 | ECHOF ---
Referral Reason:atrial fib .htnurgency,tia MEASUREMENTS -------- HEIGHT: 162.6 cm WEIGHT: 90.7 kg BP: 142/67 RVIDd: 3.2 cm (< 3.3) IVSd: 1.9 cm (0.6 - 1.1) LVIDd: 3.6 cm (3.9 - 5.3) LVPWd: 1.7 cm (0.6 - 1.1) IVSs: 2.9 cm LVIDs: 2.7 cm LVPWs: 2.4 cm LAESV Index (A-L): 38.65 ml/m Ao Diam: 2.6 cm (2.0 - 3.7) AV Cusp: 1.5 cm (1.5 - 2.6) MV EXCURSION: 14.924 mm (> 18.000) MV EF SLOPE: 83 mm/s (70 - 150) EPSS: 0.3 cm MV E Ayaz: 0.69 m/s MV DecT: 189 ms MV A Ayaz: 1.17 m/s MV E/A Ratio: 0.59 RAP: 5.00 mmHg RVSP: 33.83 mmHg FINDINGS -------- This was a technically adequate study. The left ventricular size is normal. There is severe concentric left ventricular hypertrophy. Ove rall left ventricular systolic function is low-normal with, an EF between 50 - 55 %. The right ventricle is normal in size. LA is moderately dilated 34-39 ml/m2 The right atrium was not well visualized. Interatrial and interventricular septum intact. The aortic valve was not well visualized. There is no evidence of aortic regurgitation. There is no evidence of aortic stenosis. Xcqt-[id number]-aiddjkxr mitral regurgitation is present. Mild tricuspid regurgitation present. There is mild pulmonary hypertension. The right ventricular systolic pressure, as measured by Doppler, is 33.83mmHg. Trace/mild (physiologic) pulmonic regurgitation. The aortic root size is normal. IVC Not well visulized. There is no pericardial effusion. CONCLUSIONS -------- 1. The left ventricular size is normal. 2. There is severe concentric left ventricular hypertrophy. 3. Overall left ventricular systolic function is low-normal with, an EF between 50 - 55 %. 4. LA is moderately dilated 34-39 ml/m2 5. Lxoa-fg-lfhqefwk mitral regurgitation is present. 6. Mild tricuspid regurgitation present. 7. There is mild pulmonary hypertension. 8. The right ventricular systolic pressure, as measured by Doppler, is 33.83mmHg. 9. Trace/mild (physiologic) pulmonic regurgitation. SPED TEACHER: Mandie Alexander RDCS
--- NOTE | 2019-12-23 11:14 | CONS ---
CONSULTATION Mrs. Liao is an 79-year-old female with a known history of hypertension, history of hyperlipidemia, severe advanced renal failure, being evaluated for dialysis, who presented to the emergency room with symptoms of dyspnea. Patient is seen in the emergency room. She is on the BiPAP. She has a fistula that has been placed in the left upper extremity about 20 days ago. She denies any chest pain. She had dyspnea with mild cough, no wheezing. No fever. She denies any nausea or vomiting. She has some peripheral edema. She has no prior documented history of obstructive coronary artery disease or heart failure according to her. She is feeling better on the CPAP. Her cardiology consultation was requested for possible congestive heart failure. MEDICATIONS: Include hydralazine 100 mg 3 times a day, gabapentin, Lipitor 20 mg daily, amlodipine 10 mg daily, levothyroxine, and Lasix 20 mg daily. REVIEW OF SYSTEMS: RESPIRATORY SYSTEM: She had dyspnea on exertion. No recent wheezing. She has mild cough. GI SYSTEM: No recent GI bleed. No peptic ulcer disease. SYSTEM: She had advanced renal failure followed by Dr. Bermudez. NERVOUS SYSTEM: No history of stroke or seizure. PHYSICAL EXAMINATION: An 79-year-old female, alert, oriented, in no apparent distress. Blood pressure running in the 140s to 150s with a heart rate in the 90s to low 100s. HEAD: Normocephalic. EYES: Sclerae nonicteric. NECK: Good upstroke, no bruit. LUNGS With few crackles bilaterally at the bases. HEART: Regular rate and rhythm, S1, S2. No S3 with a systolic murmur heard at the base. No diastolic murmur, no rub. ABDOMEN: Soft, nontender, obese. EXTREMITIES: No significant edema. LAB DATA: Revealed a hemoglobin of 10.8, white blood cell of 12.7, BUN and creatinine initially of 60 and 3.41, subsequently 67 and 3.7. His potassium 4.7. NT proBNP is 8660 and her troponin 0.291. Her EKG revealed a sinus mechanism with PACs and nonspecific ST-T wave changes with left axis deviation. Her chest x-ray shows evidence of fluid overload with evidence consistent was CHF. IMPRESSION: 1. Progressive dyspnea with evidence of CHF, could be related to the renal failure and fluid overload. 2. Advanced renal failure, being evaluated for dialysis. 3. Hypertension. 4. Hyperlipidemia. 5. Mild elevation in troponin related to the CHF and renal failure. No evidence to suggest acute coronary artery syndrome. RECOMMENDATION: From the cardiac standpoint, I will add a beta sylvie regimen. I will obtain echocardiogram with Doppler. Will await the input of the renal team. The patient may benefit from IV Lasix and if there is no improvement, that she may require earlier dialysis. Depending on her progress, further recommendation will be made. Thank you for this consult. Will follow with you. MMODL / IJN: [id number] /
--- NOTE | 2019-12-23 11:28 | P.NPCON ---
History of Present Illness - Reason for Consult acute renal failure, chronic renal failure - History of Present Illness Reason for consultation: Acute kidney injury on chronic kidney disease History of present illness: Patient is a 79-year-old female seen in renal consultation for acute kidney injury on chronic kidney disease. Patient has chronic kidney disease stage IV with baseline creatinine near 2.6-2.8. Creatinine was 3.4 on admission and is 3.7 today. She presented to the hospital for shortness of breath. Chest x-ray suggestive of pulmonary edema. She has a Lea catheter. She is maintained on IV Lasix 80 mg twice daily. Urine output about 1.1 L overnight. She is currently on BiPAP. Denies chest pain. Denies fever or chills. No cough. No vomiting or diarrhea. Denies use of nonsteroidals. Blood pressure stable. No significant hypotension noted. Echocardiogram revealed ejection fraction of 50- 55% with mild to moderate mitral regurgitation. No edema in the lower extremiti es. She is awake and alert on BiPAP. She does have a left upper extremity AV graft and is able to be used per vascular surgery. Vital signs are stable. General: The patient appeared well nourished and normally developed. HEENT: Head exam is unremarkable. Neck is without jugular venous distension. On BiPAP. LUNGS: Breath sounds decreased. HEART: Rate and Rhythm are regular. ABDOMEN: Soft, nontender. EXTREMITITES: No edema. Past Medical History Past Medical History: Diabetes Mellitus, Dialysis, Hypertension, Renal Disease, Thyroid Disorder Additional Past Medical History / Comment(s): Hx anemia;. carpal tunnel. Gout History of Any Multi-Drug Resistant Organisms: None Reported Past Surgical History: Section, Hysterectomy, Tubal Ligation Additional Past Surgical History / Comment(s): plan for kidney biopsy 01/01/19, right knee surgery Past Anesthesia/Blood Transfusion Reactions: No Reported Reaction Past Psychological History: No Psychological Hx Reported Smoking Status: Never smoker Past Alcohol Use History: Occasional Past Drug Use History: None Reported - Past Family History Mother Family Medical History: Diabetes Mellitus, Hypertension Additional Family Medical History / Comment(s): mother is Father Family Medical History: Chest Pain / Angina, Coronary Artery Disease (CAD), CVA/ TIA Additional Family Medical History / Comment(s): father is Brother(s) Family Medical History: Cancer Additional Family Medical History / Comment(s): prostate Sister(s) Family Medical History: Cancer Additional Family Medical History / Comment(s): stomach Medications and Allergies Home Medications Medication Instructions Recorded Confirmed Type Gabapentin [Neurontin] 300 mg PO TID 12/25/15 12/22/19 History Atorvastatin [Lipitor] 20 mg PO DAILY 10/06/16 12/22/19 History amLODIPine [Norvasc] 10 mg PO HS 12/24/18 12/22/19 History Furosemide [Lasix] 20 mg PO DAILY 10/29/19 12/22/19 History Levothyroxine Sodium 150 mcg PO QAM 10/29/19 12/22/19 History hydrALAZINE HCL [Apresoline] 100 mg PO TID 10/29/19 12/22/19 History Atorvastatin Calcium [Lipitor] 20 mg PO DAILY 12/22/19 12/22/19 History predniSONE See Taper PO DIRECTED 12/22/19 12/22/19 History prednisoLONE ACETATE [Pred Forte 1 drop BOTH EYES TID 12/22/19 12/22/19 History 1%] Allergies Allergy/AdvReac Type Severity Reaction Status Date / Time Intravenous Iron Allergy Rash/Hives Uncoded 12/22/19 19:50 Physical Exam Vitals: Vital Signs Temp Pulse Resp BP Pulse Ox 12/23/19 10:10 107 H 22 151/68 99 12/23/19 09:16 98 22 111/98 98 12/23/19 08:58 104 H 22 90 L 12/23/19 08:33 113 H 22 149/87 89 L 12/23/19 07:25 98 16 151/60 93 L 12/23/19 06:20 97.8 F 99 19 147/61 95 12/23/19 05:00 94 19 134/71 91 L 12/23/19 04:16 95 20 140/85 94 L 12/23/19 02:57 98 18 117/94 93 L 12/23/19 00:00 88 22 130/55 95 12/22/19 23:00 94 22 168/76 96 12/22/19 22:00 94 20 109/82 96 12/22/19 21:10 94 20 162/76 95 12/22/19 19:35 109 H 22 168/85 95 12/22/19 19:16 89 22 138/90 97 12/22/19 18:38 118 H 24 139/116 92 L 12/22/19 17:47 32 H 12/22/19 17:39 98.6 F 152 H 26 H 170/96 Intake and Output 12/22/19 12/23/19 12/23/19 22:59 06:59 14:59 Output Total 500 Balance -500 Output: Urine 500 Other: Weight 90.718 kg Results - Lab Results Most recent lab results ABG pH 7.33 (7.35-7.45) L 12/22/19 18:24 ABG pCO2 40 mmHg (35-45) 12/22/19 18:24 ABG pO2 46 mmHg (83-108) L* 12/22/19 18:24 ABG HCO3 21 mmol/L (21-25) 12/22/19 18:24 ABG O2 Saturation 78.7 % (94-97) L 12/22/19 18:24 Calcium 10.2 mg/dL (8.4-10.2) 12/23/19 03:24 Magnesium 1.9 mg/dL (1.6-2.3) 12/22/19 18:10 12/23/19 03:18 12/23/19 03:24 Assessment and Plan Plan: Assessment: 1. Acute kidney injury secondary to ATN secondary to cardiorenal syndrome. Creatinine 3.7 today. 2. 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 3. Acute hypoxic respiratory failure. 4. Acute on chronic diastolic CHF. 5. Volume overload. 6. Chronic kidney disease mineral bone disease maintained on calcitriol. 7. Metabolic acidosis secondary to acute kidney injury. Better. 8. Hypertension with chronic kidney disease. Stable. Plan: Maintain IV Lasix. Initiate renal replacement therapy. Plan for hemodialysis today and again tomorrow. Discussed with the patient and she is in agreement. Hold calcitriol due to high calcium. Patient's AV graft was evaluated by vascular surgery and is okay to use. Thank you for the consultation. I will continue to follow the patient with you during her hospital stay.
[2019-12-23] MEDS: ACETAMINOPHEN TAB 325 MG TAB PO PRN ×2 (14:59→19:23)
[2019-12-23 16:05] LABS: Hepatitis B Surface AB- Quant 3.5 mIU/mL; Hepatitis B Surface Antibody Non-Reactive (Non-Reactive); Hepatitis B Surface Antigen Non-Reactive (Non-Reactive)
[2019-12-23] MEDS ORDERED: ACETAMINOPHEN TAB 325 MG TAB PO PRN (16:47)
--- NOTE | 2019-12-23 16:47 | P.CNPUL ---
History of Present Illness Consult date: 12/23/19 Reason for consult: dyspnea, hypoxemia, pneumonia History of present illness: 79-year-old -[place] female patient with known history of chronic kidney disease secondary to diabetic nephropathy. The patient was progressively getting worse over the past few days and her shortness of breath started approximately 3 days ago. The patient is known to have chronic stage for kidney disease. The patient came into the hospital because of an acute hypoxic respiratory failure. Chest x-ray showed diffuse but the pulmonary infiltrates. She denied having any fever. No significant cough or sputum production. Her urine output was low. I saw the patient emergency department the patient was already on BiPAP at a pressure of 10/5 with an FiO2 of 100%. I saw the patient on Lasix 80 mg IV every 12 hours. Nephrology was consulted for immediate hemodialysis knowing that the patient has a left upper extremity AV graft which is ready to be used. This was placed few months back. Subsequently, the patient was also checked for carbon 19 and test came back positive. The patient has a white cell count of 11.8. The patient has lymphopenia with a lymphocyte count of 0.9. The coagulation profile was within normal limits. The patient tang s a BUN of 67 with a creatinine of 3.7. The echocardiogram was done at the bedside and the patient has a mild to moderate mitral regurgitation. Left ventricular ejection fraction is essentially within normal limits. The patient has a GFR which is currently down to 13. Nevertheless, with dialysis, should be able to put the patient on a combination of treatment including Remdesivir. Despite her negative for 44 temperature, the patient started developing temperature the emergency department with a T-max of 101.7. Review of Systems Constitutional: Reports fatigue, Reports fever, Reports lethargy, Reports poor appetite, Reports weakness Eyes: denies as per HPI, denies blurred vision, denies bulging eye, denies decreased vision, denies diplopia, denies discharge, denies dry eye, denies irritation, denies itching, denies pain, denies photophobia, denies loss of peripheral vision, denies loss of vision, denies tunnel vision/blind spots Ears: deny: decreased hearing, ear discharge, earache, tinnitus Ears, nose, mouth and throat: Denies headache, Denies sore throat Breasts: absent: as per HPI, change in shape, gynecomastia, masses, nipple discharge, pain, skin changes, swelling Cardiovascular: Reports decreased exercise tolerance, Reports dyspnea on exertion Respiratory: Reports dyspnea Gastrointestinal: Reports as per HPI Genitourinary: Reports as per HPI Menstruation: Reports as per HPI Musculoskeletal: Reports as per HPI Musculoskeletal: absent: ankle pain, ankle stiffness, ankle swelling Integumentary: Reports as per HPI Neurological: Reports as per HPI, Reports weakness Psychiatric: Reports as per HPI Endocrine: Reports as per HPI, Reports fatigue Hematologic/Lymphatic: Reports as per HPI Allergic/Immunologic: Reports as per HPI Past Medical History Past Medical History: Diabetes Mellitus, Dialysis, Hypertension, Renal Disease, Thyroid Disorder Additional Past Medical History / Comment(s): Stage IV chronic kidney disease, hypertension, diabetes mellitus, hypothyroidism, carpal tunnel disease, chronic anemia, gout History of Any Multi-Drug Resistant Organisms: None Reported Past Surgical History: Section, Hysterectomy, Tubal Ligation Additional Past Surgical History / Comment(s): plan for kidney biopsy 01/01/19, right knee surgery Past Anesthesia/Blood Transfusion Reactions: No Reported Reaction Past Psychological History: No Psychological Hx Reported Smoking Status: Never smoker Past Alcohol Use History: Occasional Past Drug Use History: None Reported - Past Family History Mother Family Medical History: Diabetes Mellitus, Hypertension Additional Family Medical History / Comment(s): mother is Father Family Medical History: Chest Pain / Angina, Coronary Artery Disease (CAD), CVA/TIA Additional Family Medical History / Comment(s): father is Brother(s) Family Medical History: Cancer Additional Family Medical History / Comment(s): prostate Sister(s) Family Medical History: Cancer Additional Family Medical History / Comment(s): stomach Medications and Allergies Home Medications Medication Instructions Recorded Confirmed Type Gabapentin [Neurontin] 300 mg PO TID 12/25/15 12/22/19 History Atorvastatin [Lipitor] 20 mg PO DAILY 10/06/16 12/22/19 History amLODIPine [Norvasc] 10 mg PO HS 12/24/18 12/22/19 History Furosemide [Lasix] 20 mg PO DAILY 10/29/19 12/22/19 History Levothyroxine Sodium 150 mcg PO QAM 10/29/19 12/22/19 History hydrALAZINE HCL [Apresoline] 100 mg PO TID 10/29/19 12/22/19 History Atorvastatin Calcium [Lipitor] 20 mg PO DAILY 12/22/19 12/22/19 History predniSONE See Taper PO DIRECTED 12/22/19 12/22/19 History prednisoLONE ACETATE [Pred Forte 1 drop BOTH EYES TID 12/22/19 12/22/19 History 1%] Allergies Allergy/AdvReac Type Severity Reaction Status Date / Time Intravenous Iron Allergy Rash/Hives Uncoded 12/22/19 19:50 Physical Exam Vitals: Vital Signs Temp Pulse Pulse Resp BP BP Pulse Ox 12/23/19 16:30 98.8 F 102 H 22 116/60 92 L 12/23/19 15:04 101.7 F H 122 H 24 140/119 95 12/23/19 14:47 101.7 F H 117 H 26 H 164/85 12/23/19 14:00 129 H 24 130/85 12/23/19 13:18 113 H 24 137/93 93 L 12/23/19 11:34 109 H 22 144/80 97 12/23/19 10:10 107 H 22 151/68 99 12/23/19 09:16 98 22 111/98 98 12/23/19 08:58 104 H 22 90 L 12/23/19 08:33 113 H 22 149/87 89 L 12/23/19 07:25 98 16 151/60 93 L 12/23/19 06:20 97.8 F 99 19 147/61 95 12/23/19 05:00 94 19 134/71 91 L 12/23/19 04:16 95 20 140/85 94 L 12/23/19 02:57 98 18 117/94 93 L 12/23/19 00:00 88 22 130/55 95 12/22/19 23:00 94 22 168/76 96 12/22/19 22:00 94 20 109/82 96 12/22/19 21:10 94 20 162/76 95 12/22/19 19:35 109 H 22 168/85 95 12/22/19 19:16 89 22 138/90 97 12/22/19 18:38 118 H 24 139/116 92 L 12/22/19 17:47 32 H 12/22/19 17:39 98.6 F 152 H 26 H 170/96 Intake and Output 12/23/19 12/23/19 12/23/19 06:59 14:59 22:59 Output Total 2500 Balance -2500 Output: Urine 500 Hemodialysis 2000 Gen. appearance the patient is a mild degree of respiratory distress currently on a BiPAP at a pressure of 10/5 with an FiO2 of 100%. She is not using excessive muscle breathing. Head exam was generally normal. There was no scleral icterus or corneal arcus. Mucous membranes were moist. Neck was supple and without jugular venous distension, thyromegaly, or carotid bruits. Carotids were easily palpable bilaterally. There was no adenopathy. Lungs sounds are diminished in the patient's correct in the mid and the lower lung angel bilaterally. Cardiac exam revealed the PMI to be normally situated and sized. The rhythm was regular and no extrasystoles were noted during several minutes of auscultation. The first and second heart sounds were normal and physiologic splitting of the second heart sound was noted. There were no murmurs, rubs, clicks, or gallops. Abdominal exam revealed normal bowel sounds. The abdomen was soft, non-tender, and without masses, organomegaly, or appreciable enlargement of the abdominal aorta. Examination of the extremities revealed easily palpable radial, femoral and pedal pulses. There was no cyanosis, clubbing or edema.. The patient has a functional AV fistula. Examination of the skin revealed no evidence of significant rashes, suspicious appearing nevi or other concerning lesions. Neurologically, the patient is awake and alert and the patient does not have any focal neurological deficit. Cranial nerves are essentially intact. Results - Laboratory Findings CBC and BMP: 12/23/19 03:18 12/23/19 03:24 ABG ABG pH 7.33 (7.35-7.45) L 12/22/19 18:24 ABG pCO2 40 mmHg (35-45) 12/22/19 18:24 ABG pO2 46 mmHg (83-108) L* 12/22/19 18:24 ABG O2 Saturation 78.7 % (94-97) L 12/22/19 18:24 PT/INR, D-dimer PT 9.5 sec (9.0-12.0) 12/22/19 19:03 INR 0.9 (<1.2) 12/22/19 19:03 Abnormal lab findings: Abnormal Labs 12/22/19 12/22/19 12/22/19 18:10 18:10 18:24 WBC Hgb MCHC RDW Plt Count Neutrophils # Lymphocytes # ABG pH 7.33 L ABG pO2 46 L* ABG O2 Saturation 78.7 L Chloride 113 H Carbon Dioxide 18 L BUN 60 H Creatinine 3.41 H Glucose 151 H AST 49 H Alkaline Phosphatase 33 L Troponin I 0.291 H* Albumin 3.1 L Coronavirus (PCR) 12/22/19 12/23/19 12/23/19 19:03 03:18 03:24 WBC 12.7 H 11.8 H Hgb 10.8 L 10.5 L MCHC 30.5 L 30.5 L RDW 19.9 H 20.0 H Plt Count 123 L 89 L Neutrophils # 12.0 H 10.5 H Lymphocytes # 0.3 L 0.9 L ABG pH ABG pO2 ABG O2 Saturation Chloride 113 H Carbon Dioxide 21 L BUN 67 H Creatinine 3.70 H Glucose 119 H AST Alkaline Phosphatase Troponin I Albumin Coronavirus (PCR) 12/23/19 10:16 WBC Hgb MCHC RDW Plt Count Neutrophils # Lymphocytes # ABG pH ABG pO2 ABG O2 Saturation Chloride Carbon Dioxide BUN Creatinine Glucose AST Alkaline Phosphatase Troponin I Albumin Coronavirus (PCR) Detected A - Diagnostic Findings Chest x-ray: image reviewed Assessment and Plan Plan: 1 acute COVID 19 related pneumonia with secondary hypoxic respiratory failure. There may be a component of fluid overload as the patient has developed an acute on top of chronic kidney failure knowing that she has a stage for kidney disease. 2 acute BiPAP dependent respiratory failure currently on a BiPAP at a pressure of 10/5 with an FiO2 of 100%. The blood gas shows a component of metabolic and respiratory acidosis. 3 fever secondary to above 4 acute on chronic kidney disease in the patient's creatinine is up to 3.7 with a GFR of 13. 4 chronic stage IV kidney disease with a baseline creatinine of 2.6-2.8 and the patient has biopsy-proven diabetic nephropathy with fibrosis and tubular atrophy 6 chronic diastolic heart failure 7 metabolic acidosis secondary to above, mild 8 hypertension 9 hyperlipidemia 10 gout 11 chronic anemia and hemoglobin currently is at 10.5 12 thrombocytopenia, could be viral in nature. Plan Transfer this patient to the intensive care unit Start the patient oral Decadron 6 mg by mouth daily Start the patient on Remdesivir and the patient should be able to tolerate the medication as long as the patient is being dialyzed and this will be coordinated with nephrology and pharmacy Daily chest x-rays Titrate FiO2 to maintain a saturation above 90%. The blood gas was done on the patient was on a 40% FiO2 Proceed treating this patient with the supplements including vitamin C, vitamin D, melatonin and Pepcid Consult nephrology for dialysis and dialysis can be done through the AV fistula Check inflammatory markers Check d-dimer Put the patient on the appropriate anticoagulants including Lovenox 30 mg subcu daily for DVT prophylaxis unless the d-dimer is are quite elevated We will continue to follow make further recommendations based on her progress. The patient's condition is critical at this point in time.
[2019-12-23] MEDS: DEXAMETHASONE SOD PHOSPHATE 10 MG/ML 1 ML VIAL IV SCH (17:46)
[2019-12-23 17:51] LABS: D-Dimer 12.46 mg/L FEU (<0.60); INR 0.9 (<1.2); Partial Thromboplastin Time 25.5 sec (22.0-30.0); Prothrombin Time 9.3 sec (9.0-12.0)
[2019-12-23] MEDS ORDERED: REMDESIVIR (EUA) 200 MG in SODIUM CHLORIDE 0.9% 250 ML IVPB ONE (18:00)
[2019-12-23] MEDS ORDERED: REMDESIVIR (EUA) 100 MG in SODIUM CHLORIDE 0.9% 250 ML IVPB SCH (18:00)
[2019-12-23] MEDS: ENOXAPARIN 30 MG/0.3 ML SYRINGE SQ SCH (19:17)
[2019-12-23] MEDS: amLODIPine 10 MG TAB PO SCH (21:40)
[2019-12-24] MEDS: hydrALAZINE HCL 50 MG TAB PO SCH ×2 (00:42→08:15)
[2019-12-24 05:30] LABS: Anisocytosis Slight; Basophils % (A) 1 %; Eosinophils % (A) 0 %; HCT 33.5 % (34.0-46.0); HGB 10.2 gm/dL (11.4-16.0); Hypochromasia Moderate; Lymphocytes # (A) 0.4 k/uL (1.0-4.8); Lymphocytes % (A) 5 %; MCH 26.8 pg (25.0-35.0); MCHC 30.3 g/dL (31.0-37.0); MCV 88.3 fL (80.0-100.0); Mean Platelet Volume 10.1; Monocytes # (A) 0.2 k/uL (0-1.0); Monocytes % (A) 3 %; Neutrophils # (A) 7.3 k/uL (1.3-7.7); Neutrophils % (A) 92 %; RBC 3.79 m/uL (3.80-5.40); RDW 19.6 % (11.5-15.5)
[2019-12-24 05:36] LABS: Platelet Count 95 k/uL (150-450)
[2019-12-24 05:47] LABS: Albumin 2.6 g/dL (3.5-5.0); Calcium 9.8 mg/dL (8.4-10.2); Potassium 4.5 mmol/L (3.5-5.1); Total Bilirubin 0.6 mg/dL (0.2-1.3); Total Protein 5.9 g/dL (6.3-8.2)
[2019-12-24 06:27] LABS: C Reactive Protein 339.4 mg/L (<10.0)
[2019-12-24] MEDS: ASPIRIN 81 MG PO SCH (08:14)
[2019-12-24] MEDS: LEVOTHYROXINE 75 MCG TAB PO SCH (08:14)
[2019-12-24] MEDS: ATORVASTATIN 20 MG TAB PO SCH ×2 (08:15→14:29)
[2019-12-24] MEDS: DEXAMETHASONE SOD PHOSPHATE 10 MG/ML 1 ML VIAL IV SCH (08:15)
[2019-12-24] MEDS: METOPROLOL TARTRATE 25 MG TAB PO SCH ×2 (08:15→22:20)
[2019-12-24] MEDS: FERROUS SULFATE 325 MG TAB PO SCH (08:15)
[2019-12-24] MEDS: FUROSEMIDE 10 MG/ML 10 ML VIAL IV SCH (08:16)
[2019-12-24] MEDS: DOCUSATE 100 MG CAP PO SCH ×2 (08:17→22:20)
--- NOTE | 2019-12-24 09:46 | P.PN ---
Subjective Progress Note Date: 12/23/19 Principal diagnosis: Acute pulmonary edema Acute kidney injury Chronic kidney disease stage IV Hypertension with hypertensive heart disease Diabetes mellitus type 2. Progress note date of service 12/23/2019. Patient seen evaluated in the emergency room room #10 for dialysis. Patient was supposed to go to the ICU however she maintain in the emergency room module 10. Patient was seen evaluated and nurse dialysis was preparing her for dialysis and placing the intake and output from left arm Polebridge-Ulysses graft after she got clearance from the vascular surgeon in medical. Patient was conscious alert oriented able to communicate, shortness of breath still with the underlying pulmonary edema and volume overload with the underlying acute kidney injury. Patient to lab dialysis only for 22-1/2 hour as a starting dialysis with the clearance of fluid. On exam: Still her fascial was edematous. She is able to speak and able to state her status. Conscious. Neck was supple no thyromegaly. No bruits. Chest she had bilateral rhonchi and rales half of her chest was decreased air entry. Heart tachycardia and cardiac troponin was minimally elevated and cardiology consult was obtained from Dr. Foy. Abdomen obese positive bowel sounds no tenderness. Extremities edema. Positive pulses. No neurological deficit. Assessment: #1 acute kidney injury, #2 reaching end stage renal disease 3 diuretic diuresis was not helpful. #4 started hemodialysis through the Polebridge-Ulysses graft on the left arm. #5 diabetes mellitus type 2 monitored and treated. #6 hypertension with hypertensive heart disease. Plan: #1 patient may need more than one sitting of dialysis #2 probable as outpatient also dialysis. #3 critical care will be seeing the patient as well as cardiology. #4 Dr. Bermudez nephrology monitoring and ordering the dialysis. And prognosis still guarded however we expect improvement with dialysis. Objective - Vital Signs Vital signs: Vital Signs Temp 98.0 F 12/24/19 07:41 Pulse 72 12/24/19 08:57 Resp 24 12/24/19 08:57 BP 142/72 12/24/19 08:57 Pulse Ox 96 12/24/19 08:57 Intake & Output 12/23/19 12/24/19 12/24/19 18:59 06:59 18:59 Output Total 2500 550 350 Balance -2500 -550 -350 Output: Urine 500 550 350 Uretheral (Lea) 550 Hemodialysis 2000 - Labs CBC & Chem 7: 12/24/19 04:55 12/24/19 04:55 Labs: Abnormal Lab Results - Last 24 Hours (Table) 12/23/19 12/23/19 12/23/19 Range/Units 10:16 17:20 17:20 RBC (3.80-5.40) m/uL Hgb (11.4-16.0) gm/dL Hct (34.0-46.0) % MCHC (31.0-37.0) g/dL RDW (11.5-15.5) % Plt Count (150-450) k/uL Lymphocytes # (1.0-4.8) k/uL D-Dimer 12.46 H (<0.60) mg/L FEU Chloride (98-107) mmol/L Carbon Dioxide (22-30) mmol/L BUN (7-17) mg/dL Creatinine (0.52-1.04) mg/dL Glucose (74-99) mg/dL Ferritin (10.0-291.0) ng/mL AST (14-36) U/L Alkaline Phosphatase (38-126) U/L Lactate Dehydrogenase (313-618) U/L Troponin I 0.238 H* (0.000-0.034) ng/mL C-Reactive Protein (<10.0) mg/L Total Protein (6.3-8.2) g/dL Albumin (3.5-5.0) g/dL Coronavirus (PCR) Detected A (Not Detectd) 12/23/19 12/24/19 12/24/19 Range/Units 17:20 04:55 04:55 RBC 3.79 L (3.80-5.40) m/uL Hgb 10.2 L (11.4-16.0) gm/dL Hct 33.5 L (34.0-46.0) % MCHC 30.3 L (31.0-37.0) g/dL RDW 19.6 H (11.5-15.5) % Plt Count 95 L (150-450) k/uL Lymphocytes # 0.4 L (1.0-4.8) k/uL D-Dimer (<0.60) mg/L FEU Chloride 109 H (98-107) mmol/L Carbon Dioxide 21 L (22-30) mmol/L BUN 66 H (7-17) mg/dL Creatinine 3.80 H (0.52-1.04) mg/dL Glucose 146 H (74-99) mg/dL Ferritin 1115.5 H (10.0-291.0) ng/mL AST 56 H (14-36) U/L Alkaline Phosphatase 29 L (38-126) U/L Lactate Dehydrogenase 2094 H (313-618) U/L Troponin I (0.000-0.034) ng/mL C-Reactive Protein 339.4 H (<10.0) mg/L Total Protein 5.9 L (6.3-8.2) g/dL Albumin 2.6 L (3.5-5.0) g/dL Coronavirus (PCR) (Not Detectd)
[2019-12-24] MEDS ORDERED: ENOXAPARIN 60 MG/0.6 ML SYRINGE SQ SCH (10:15)
--- NOTE | 2019-12-24 10:24 | XR ---
EXAMINATION TYPE: XR chest 1V portable DATE OF EXAM: 12/24/2019 COMPARISON: 02/20/2019 INDICATION: Covid 19, pulmonary edema TECHNIQUE: Single frontal view of the chest is obtained. FINDINGS: The heart size is mildly prominent. The pulmonary vasculature is indistinct. Diffuse increased lung markings are present bilaterally. Air bronchograms appear to be present. IMPRESSION: 1. Diffuse bilateral lung infiltrates within the mid and lower lung angel similar to comparison.
[2019-12-24] MEDS: ENOXAPARIN 30 MG/0.3 ML SYRINGE SQ SCH (10:28)
--- NOTE | 2019-12-24 12:20 | P.PN ---
Subjective Patient is seen in follow-up for acute kidney injury on chronic kidney disease. Patient has chronic kidney disease stage IV with baseline creatinine near 2.6- 2.8. Creatinine was 3.7 on admission and is 3.8 today. She was started on hemodialysis December 22 and tolerated 2 L ultrafiltration. She is also on IV Lasix. She is Covid 19 positive. Currently on BiPAP. Oral intake is fair. No chest pain or shortness of breath at this time. Vital signs are stable. General: The patient appeared well nourished and normally developed. HEENT: Head exam is unremarkable. Neck is without jugular venous distension. LUNGS: Breath sounds decreased. HEART: Rate and Rhythm are regular. ABDOMEN: Soft, nontender. EXTREMITITES: Trace edema. Objective - Vital Signs Vital signs: Vital Signs Temp 98.0 F 12/24/19 07:41 Pulse 68 12/24/19 11:17 Resp 24 12/24/19 11:17 BP 124/63 12/24/19 11:17 Pulse Ox 94 L 12/24/19 11:20 Intake & Output 12/23/19 12/24/19 12/24/19 18:59 06:59 18:59 Output Total 2500 550 350 Balance -2500 -550 -350 Output: Urine 500 550 350 Uretheral (Lea) 550 Hemodialysis 1999 - Labs CBC & Chem 7: 12/24/19 04:55 12/24/19 04:55 Labs: Abnormal Lab Results - Last 24 Hours (Table) 12/23/19 12/23/19 12/23/19 Range/Units 17:20 17:20 17:20 RBC (3.80-5.40) m/uL Hgb (11.4-16.0) gm/dL Hct (34.0-46.0) % MCHC (31.0-37.0) g/dL RDW (11.5-15.5) % Plt Count (150-450) k/uL Lymphocytes # (1.0-4.8) k/uL D-Dimer 12.46 H (<0.60) mg/L FEU Chloride (98-107) mmol/L Carbon Dioxide (22-30) mmol/L BUN (7-17) mg/dL Creatinine (0.52-1.04) mg/dL Glucose (74-99) mg/dL Ferritin 1115.5 H (10.0-291.0) ng/mL AST (14-36) U/L Alkaline Phosphatase (38-126) U/L Lactate Dehydrogenase (313-618) U/L Troponin I 0.238 H* (0.000-0.034) ng/mL C-Reactive Protein (<10.0) mg/L Total Protein (6.3-8.2) g/dL Albumin (3.5-5.0) g/dL 12/24/19 12/24/19 Range/Units 04:55 04:55 RBC 3.79 L (3.80-5.40) m/uL Hgb 10.2 L (11.4-16.0) gm/dL Hct 33.5 L (34.0-46.0) % MCHC 30.3 L (31.0-37.0) g/dL RDW 19.6 H (11.5-15.5) % Plt Count 95 L (150-450) k/uL Lymphocytes # 0.4 L (1.0-4.8) k/uL D-Dimer (<0.60) mg/L FEU Chloride 109 H (98-107) mmol/L Carbon Dioxide 21 L (22-30) mmol/L BUN 66 H (7-17) mg/dL Creatinine 3.80 H (0.52-1.04) mg/dL Glucose 146 H (74-99) mg/dL Ferritin (10.0-291.0) ng/mL AST 56 H (14-36) U/L Alkaline Phosphatase 29 L (38-126) U/L Lactate Dehydrogenase 2094 H (313-618) U/L Troponin I (0.000-0.034) ng/mL C-Reactive Protein 339.4 H (<10.0) mg/L Total Protein 5.9 L (6.3-8.2) g/dL Albumin 2.6 L (3.5-5.0) g/dL Assessment and Plan Plan: Assessment: 1. Acute kidney injury secondary to ATN secondary to cardiorenal syndrome and Covid 19 infection. Creatinine 3.4 on admission and is 3.8 today. Started on hemodialysis December 22. Using AV graft. 2. 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 3. Acute hypoxic respiratory failure. 4. Acute on chronic diastolic CHF. 5. Volume overload. Improved with UF and diuresis. 6. Chronic kidney disease mineral bone disease maintained on calcitriol. 7. Metabolic acidosis secondary to acute kidney injury. Better. 8. Hypertension with chronic kidney disease. Stable. 9. Covid 19 infection maintained on steroids and Remdesivir. Plan: Maintain IV Lasix. Second treatment of hemodialysis today. Check phosphorus level. Hold hydralazine for systolic blood pressure less than 120.
--- NOTE | 2019-12-24 12:34 | P.PN ---
Subjective Progress Note Date: 12/24/19 Progress note date of service 12/24/2019 Patient seen in the emergency room room exam 10 overflow from ICU. Patient conscious alert oriented on BiPAP. Underwent hemodialysis for 2 hours and they pulled out 2 L. She will be receiving another hemodialysis by Dr. Bermudez today or tomorrow. Patient found to have COLVID-19 positive for the underlying possible flu Keith pneumonia. On the exam today Conscious alert oriented still on the BiPAP seen by pulmonary and nephrology. Blood pressure improved significantly with the pulling of fluid during the dialysis. Head was normocephalic and atraumatic pupil is equal reactive. Neck was supple and no thyromegaly no lymphadenopathy with mild congestion of the neck vein. Chest significant improvement still she had rhonchi and mild in the lower basis and the planning for pulling out some more fluid with the next dialysis. Heart tachycardia improved with the underlying history of mild elevation of troponin. The possibility secondary to acute kidney injury and progression to end-stage renal disease with the underlying hypertensive nephrosclerosis and tiki betic nephropathy. Abdomen is soft positive bowel sounds no organ enlargement. Extremities still buffeting of the lower extremities. Pulses intact bilaterally no ischemic changes. Neurologically stable. Assessment: #1 acute kidney injury, volume overload, failure of diuresis, need for acute dialysis which was done through the graft from the left arm. With the pulling out of 2 L. #2 underlying Covid pneumonia could not be excluded, #3 positive Covid 19 #3 diabetes mellitus2 #4 hyper lipidemia. #5 chronic kidney disease stage 4-5. #5 minimal elevation of troponin on admission probably secondary to renal failure. #6 echocardiogram indicating ejection fraction 50-55 stable with the underlying pulmonary hypertension. Plan: #1 continue current treatment by nephrology, cardiology, pulmonary and critical care. #2 no added medication as the specialist has been monitoring at this time. #3 will continue the dialysis with good clinical improvement. Without any neurological deficit. Objective - Vital Signs Vital signs: Vital Signs Temp 98.0 F 12/24/19 07:41 Pulse 68 12/24/19 11:17 Resp 24 12/24/19 11:17 BP 124/63 12/24/19 11:17 Pulse Ox 94 L 12/24/19 11:20 Intake & Output 11/16/20 11/17/20 11/17/20 18:59 06:59 18:59 Output Total 2500 550 350 Balance -2500 -550 -350 Output: Urine 500 550 350 Uretheral (Lea) 550 Hemodialysis 1999 - Labs CBC & Chem 7: 12/24/19 04:55 12/24/19 04:55 Labs: Abnormal Lab Results - Last 24 Hours (Table) 12/23/19 12/23/19 12/23/19 Range/Units 17:20 17:20 17:20 RBC (3.80-5.40) m/uL Hgb (11.4-16.0) gm/dL Hct (34.0-46.0) % MCHC (31.0-37.0) g/dL RDW (11.5-15.5) % Plt Count (150-450) k/uL Lymphocytes # (1.0-4.8) k/uL D-Dimer 12.46 H (<0.60) mg/L FEU Chloride (98-107) mmol/L Carbon Dioxide (22-30) mmol/L BUN (7-17) mg/dL Creatinine (0.52-1.04) mg/dL Glucose (74-99) mg/dL Ferritin 1115.5 H (10.0-291.0) ng/mL AST (14-36) U/L Alkaline Phosphatase (38-126) U/L Lactate Dehydrogenase (313-618) U/L Troponin I 0.238 H* (0.000-0.034) ng/mL C-Reactive Protein (<10.0) mg/L Total Protein (6.3-8.2) g/dL Albumin (3.5-5.0) g/dL 12/24/19 12/24/19 Range/Units 04:55 04:55 RBC 3.79 L (3.80-5.40) m/uL Hgb 10.2 L (11.4-16.0) gm/dL Hct 33.5 L (34.0-46.0) % MCHC 30.3 L (31.0-37.0) g/dL RDW 19.6 H (11.5-15.5) % Plt Count 95 L (150-450) k/uL Lymphocytes # 0.4 L (1.0-4.8) k/uL D-Dimer (<0.60) mg/L FEU Chloride 109 H (98-107) mmol/L Carbon Dioxide 21 L (22-30) mmol/L BUN 66 H (7-17) mg/dL Creatinine 3.80 H (0.52-1.04) mg/dL Glucose 146 H (74-99) mg/dL Ferritin (10.0-291.0) ng/mL AST 56 H (14-36) U/L Alkaline Phosphatase 29 L (38-126) U/L Lactate Dehydrogenase 2094 H (313-618) U/L Troponin I (0.000-0.034) ng/mL C-Reactive Protein 339.4 H (<10.0) mg/L Total Protein 5.9 L (6.3-8.2) g/dL Albumin 2.6 L (3.5-5.0) g/dL
--- NOTE | 2019-12-24 14:07 | PN ---
PROGRESS NOTE Mrs. Liao is an 79-year-old female with known history of chronic kidney disease, history of hypertension, hyperlipidemia, who presented with symptoms of progressive dyspnea, was diagnosed with COVID-19 pneumonia. She has continued to be dyspneic today although slightly better. She denies any chest pain. She denies any dizziness or palpitation. She received dialysis yesterday with improvement in her symptoms. She underwent an echocardiogram that revealed a preserved ventricular size with mild to moderate mitral and mild tricuspid regurgitation. She continues to be in sinus mechanism. She continued to be on aspirin once a day, Lipitor 20 mg daily. She was started on dexamethasone and Lovenox subcu. She is on furosemide 80 mg IV q.12 hours and Remdesivir. PHYSICAL EXAMINATION: Blood pressure running in the 110s with the heart in 70. LUNGS: With a few crackles at the bases, no wheezes. HEART: Regular rate and rhythm, S1, S2. No S3. No rub. ABDOMEN: Soft, nontender. EXTREMITIES: No significant edema. LAB DATA: Revealed a BUN and creatinine 36 and 3.8, hemoglobin of 10.2. Her troponins 0.29 and 0.238. Her chest x-ray is consistent with bilateral infiltrate. IMPRESSION: 1. COVID-19 pneumonia with associated dyspnea on exertion. 2. Mild troponin elevation related to the COVID-19 infection. 3. End-stage renal disease, on hemodialysis, started yesterday. 4. History of hypertension. 5. History of hyperlipidemia. RECOMMENDATION: From the cardiac standpoint, no further intervention is needed at this point. I will see her on an as-needed basis. Please free feel free to call us for any question. MMODL / IJN: [id number] /
--- NOTE | 2019-12-24 16:41 | P.PN ---
Subjective Progress Note Date: 12/24/19 79-year-old -Luxembourger female patient with known history of chronic kidney disease secondary to diabetic nephropathy. The patient was progressively getting worse over the past few days and her shortness of breath started approximately 3 days ago. The patient is known to have chronic stage for kidney disease. The patient came into the hospital because of an acute hypoxic respiratory failure. Chest x-ray showed diffuse but the pulmonary infiltrates. She denied having any fever. No significant cough or sputum production. Her urine output was low. I saw the patient emergency department the patient was already on BiPAP at a pressure of 10/5 with an FiO2 of 100%. I saw the patient on Lasix 80 mg IV every 12 hours. Nephrology was consulted for immediate hemodialysis knowing that the patient has a left upper extremity AV graft which is ready to be used. This was placed few months back. Subsequently, the patient was also checked for carbon 19 and test came back positive. The patient has a white cell count of 11.8. The patient has lymphopenia with a lymphocyte count of 0.9. The coagulation profile was within normal limits. The patient has a BUN of 67 with a creatinine of 3.7. The echocardiogram was done at the bedside and the patient has a mild to moderate mitral regurgitation. Left ventricular ejection fraction is essentially within normal limits. The patient has a GFR which is currently down to 13. Nevertheless, with dialysis, should be able to put the patient on a combination of treatment including Remdesivir. Despite her negative for 44 temperature, the patient started developing temperature the emergency department with a T-max of 101.7. 12/24/2019, seeing the patient for a follow-up. She still in the emergency department as the patient did not find her way up to the ICU yet. Noted the patient diffuse bilateral pulmonary infiltrates with extensive consolidation of the chest x-ray is noted on today's chest x-ray. The patient remains on BiPAP for respiratory support. Currently is in the BiPAP at a pressure of 10/5 with an FiO2 of 80%. No significant respiratory distress at rest pH is able to tolerate the BiPAP without any major difficulties. Noted the patient underwent her first session of hemodialysis yesterday and second session will be done today. The patient remains on Decadron. The patient remains on Remdesivir. The patient is being diuresed with IV Lasix 80 mg IV push every 12 hours. Lovenox dose was adjusted up to 50 mg subcu every 24 hours of the patient's d- dimer was quite elevated at 12.4 and the dose adjustments was done based on her underlying renal failure. On today's evaluation, the patient is a GFR of 12 and the creatinine is at 3.8. The patient is receiving IV Lasix. The ferritin level is 1115. The CRP is at 339. The LDH level is 2094. The patient was admitted on 3.0 with a hemoglobin of 10.2. Platelet counts are low at 95. The liver function tests are nonelevated. She is afebrile for now Objective - Vital Signs Vital signs: Vital Signs Temp 97.3 F L 12/24/19 12:35 Pulse 74 12/24/19 15:03 Resp 18 12/24/19 15:03 BP 132/76 12/24/19 15:03 Pulse Ox 94 L 12/24/19 15:03 Intake & Output 12/23/19 12/24/19 12/24/19 18:59 06:59 18:59 Output Total 2500 550 350 Balance -2500 -550 -350 Output: Urine 500 550 350 Uretheral (Lea) 550 Hemodialysis 1999 - Exam Gen. appearance the patient is a mild degree of respiratory distress currently on a BiPAP at a pressure of 10/5 with an FiO2 of 100%. She is not using excessive muscle breathing. Head exam was generally normal. There was no scleral icterus or corneal arcus. Mucous membranes were moist. Neck was supple and without jugular venous distension, thyromegaly, or carotid bruits. Carotids were easily palpable bilaterally. There was no adenopathy. Lungs sounds are diminished in the patient's correct in the mid and the lower lung angel bilaterally. Cardiac exam revealed the PMI to be normally situated and sized. The rhythm was regular and no extrasystoles were noted during several minutes of auscultation. The first and second heart sounds were normal and physiologic splitting of the second heart sound was noted. There were no murmurs, rubs, clicks, or gallops. Abdominal exam revealed normal bowel sounds. The abdomen was soft, non-tender, and without masses, organomegaly, or appreciable enlargement of the abdominal aorta. Examination of the extremities revealed easily palpable radial, femoral and pedal pulses. There was no cyanosis, clubbing or edema.. The patient has a functional AV fistula. Examination of the skin revealed no evidence of significant rashes, suspicious appearing nevi or other concerning lesions. Neurologically, the patient is awake and alert and the patient does not have any focal neurological deficit. Cranial nerves are essentially intact. - Labs CBC & Chem 7: 12/24/19 04:55 12/24/19 04:55 Labs: Abnormal Lab Results - Last 24 Hours (Table) 12/23/19 12/23/19 12/23/19 Range/Units 17: 17: 17:20 RBC (3.80-5.40) m/uL Hgb (11.4-16.0) gm/dL Hct (34.0-46.0) % MCHC (31.0-37.0) g/dL RDW (11.5-15.5) % Plt Count (150-450) k/uL Lymphocytes # (1.0-4.8) k/uL D-Dimer 12.46 H (<0.60) mg/L FEU Chloride (98-107) mmol/L Carbon Dioxide (22-30) mmol/L BUN (7-17) mg/dL Creatinine (0.52-1.04) mg/dL Glucose (74-99) mg/dL Phosphorus (2.5-4.5) mg/dL Ferritin 1115.5 H (10.0-291.0) ng/mL AST (14-36) U/L Alkaline Phosphatase (38-126) U/L Lactate Dehydrogenase (313-618) U/L Troponin I 0.238 H* (0.000-0.034) ng/mL C-Reactive Protein (<10.0) mg/L Total Protein (6.3-8.2) g/dL Albumin (3.5-5.0) g/dL 12/24/19 12/24/19 12/24/19 Range/Units 04:55 04:55 04:55 RBC 3.79 L (3.80-5.40) m/uL Hgb 10.2 L (11.4-16.0) gm/dL Hct 33.5 L (34.0-46.0) % MCHC 30.3 L (31.0-37.0) g/dL RDW 19.6 H (11.5-15.5) % Plt Count 95 L (150-450) k/uL Lymphocytes # 0.4 L (1.0-4.8) k/uL D-Dimer (<0.60) mg/L FEU Chloride 109 H (98-107) mmol/L Carbon Dioxide 21 L (22-30) mmol/L BUN 66 H (7-17) mg/dL Creatinine 3.80 H (0.52-1.04) mg/dL Glucose 146 H (74-99) mg/dL Phosphorus 7.9 H (2.5-4.5) mg/dL Ferritin (10.0-291.0) ng/mL AST 56 H (14-36) U/L Alkaline Phosphatase 29 L (38-126) U/L Lactate Dehydrogenase 2094 H (313-618) U/L Troponin I (0.000-0.034) ng/mL C-Reactive Protein 339.4 H (<10.0) mg/L Total Protein 5.9 L (6.3-8.2) g/dL Albumin 2.6 L (3.5-5.0) g/dL Assessment and Plan Plan: 1 acute COVID 19 related pneumonia with secondary hypoxic respiratory failure. The patient currently is on BiPAP for the story support. FiO2 has been weaned down gradually down to 80%. The patient is on treatment with a combination of Decadron and Remdesivir 2 acute BiPAP dependent respiratory failure currently on a BiPAP at a pressure of 10/5 with an FiO2 of 80%. Chest x-ray still showing diffuse but the pulmonary infiltrates 3 fever secondary to above 4 acute on chronic kidney disease in the patient's creatinine is up to 3.8 with a GFR of 11. 4 chronic stage IV kidney disease with a baseline creatinine of 2.6-2.8 and the patient has biopsy-proven diabetic nephropathy with fibrosis and tubular atrophy 6 chronic diastolic heart failure 7 metabolic acidosis secondary to above, mild 8 hypertension 9 hyperlipidemia 10 gout 11 chronic anemia and hemoglobin currently is at 10.2 12 thrombocytopenia, could be viral in nature. Plan Transfer this patient to the intensive care unit Continue Decadron 6 mg by mouth daily Continue Remdesivir and the patient should be able to tolerate the medication as long as the patient is being dialyzed and this will be coordinated with nephrology and pharmacy Daily chest x-rays Titrate FiO2 to maintain a saturation above 90%. Keep the patient a BiPAP for now the pressure of 10/5 and FiO2 is currently at 80% Continue the supplements including vitamin C, vitamin D, melatonin and Pepcid dialysis can be done through the AV fistula per nephrology Check inflammatory markers D-dimer was elevated and the Lovenox was adjusted up to 50 mg subcu every 12 hours We will continue to follow make further recommendations based on her progress. The patient's condition is critical at this point in time.
[2019-12-24] MEDS: ENOXAPARIN 60 MG/0.6 ML SYRINGE SQ SCH (17:18)
[2019-12-24] MEDS: prednisoLONE ACETATE 1% OPHTH DROPS 5 ML BTL BOTH EYES SCH ×2 (17:25→22:24)
[2019-12-24] MEDS: amLODIPine 10 MG TAB PO SCH (22:20)
[2019-12-24 23:32] LABS: Glucose,Whole Blood 114 mg/dL (75-99)
[2019-12-25] MEDS: FUROSEMIDE 10 MG/ML 10 ML VIAL IV SCH ×3 (00:15→20:58)
[2019-12-25] MEDS: REMDESIVIR (EUA) 100 MG in SODIUM CHLORIDE 0.9% 250 ML IVPB SCH ×2 (00:15→20:58)
[2019-12-25 04:12] LABS: Anisocytosis Slight; Basophils # (A) 0.1 k/uL (0-0.2); Basophils % (A) 1 %; Eosinophils % (A) 0 %; HGB 10.8 gm/dL (11.4-16.0); Hypochromasia Slight; Lymphocytes # (A) 0.3 k/uL (1.0-4.8); Lymphocytes % (A) 4 %; MCHC 29.8 g/dL (31.0-37.0); MCV 87.2 fL (80.0-100.0); Mean Platelet Volume 7.3; Monocytes # (A) 0.2 k/uL (0-1.0); Monocytes % (A) 3 %; Neutrophils % (A) 92 %; RBC 4.13 m/uL (3.80-5.40); RDW 19.4 % (11.5-15.5); WBC 7.6 k/uL (3.8-10.6)
[2019-12-25 04:13] LABS: Platelet Count 93 k/uL (150-450)
[2019-12-25 04:26] LABS: Albumin 2.7 g/dL (3.5-5.0); Calcium 9.9 mg/dL (8.4-10.2); D-Dimer 4.2 mg/L FEU (<0.60); Total Bilirubin 0.6 mg/dL (0.2-1.3); Total Protein 6.1 g/dL (6.3-8.2)
[2019-12-25 04:41] LABS: C Reactive Protein 249.4 mg/L (<10.0)
--- NOTE | 2019-12-25 07:15 | XR ---
EXAMINATION TYPE: XR chest 1V portable DATE OF EXAM: 12/25/2019 HISTORY: Shortness of breath. COMPARISON: 12/24/2019 TECHNIQUE: Single view of the chest is submitted. FINDINGS: Demonstrated are scattered senescent parenchymal change. Stable airspace infiltrates within the upper and lower lobes. Overall no change appreciated. The heart is stable. Hilar and mediastinal structures are within normal limits. Degenerative changes are seen of the dorsal spine. IMPRESSION: 1. Stable airspace infiltrates within the upper and lower lobes. Overall no change appreciated.
--- NOTE | 2019-12-25 08:36 | P.PN ---
Subjective Patient is seen in follow-up for acute kidney injury on chronic kidney disease. Patient has chronic kidney disease stage IV with baseline creatinine near 2.6- 2.8. Creatinine peaked at 3.8 this admission. She was started on hemodialysis December 22 for worsening renal failure and volume overload. She is also on IV Lasix. She is Covid 19 positive. Currently on BiPAP. Oral intake is fair. No chest pain or shortness of breath at this time. Vital signs are stable. General: The patient appeared well nourished and normally developed. HEENT: Head exam is unremarkable. Neck is without jugular venous distension. LUNGS: Breath sounds decreased. HEART: Rate and Rhythm are regular. ABDOMEN: Soft, nontender. EXTREMITITES: Trace edema. Objective - Vital Signs Vital signs: Vital Signs Temp 98.5 F 12/25/19 04:00 Pulse 71 12/25/19 07:00 Resp 20 12/25/19 07:00 BP 117/60 12/25/19 07:00 Pulse Ox 85 L 12/25/19 07:00 Intake & Output 12/24/19 12/25/19 12/25/19 18:59 06:59 18:59 Intake Total 70 10 Output Total 350 45 8 Balance -350 25 2 Weight 90 kg Intake: IV 70 10 0.9 70 10 Output: Urine 350 45 8 Other: Voiding Method Indwelling Catheter - Labs CBC & Chem 7: 12/25/19 03:49 12/25/19 03:49 Labs: Abnormal Lab Results - Last 24 Hours (Table) 12/24/19 12/24/19 12/25/19 Range/Units 04:55 23:30 03:49 Hgb 10.8 L (11.4-16.0) gm/dL MCHC 29.8 L (31.0-37.0) g/dL RDW 19.4 H (11.5-15.5) % Plt Count 93 L (150-450) k/uL Lymphocytes # 0.3 L (1.0-4.8) k/uL Fibrinogen (200-500) mg/dL D-Dimer (<0.60) mg/L FEU Sodium (137-145) mmol/L BUN (7-17) mg/dL Creatinine (0.52-1.04) mg/dL Glucose (74-99) mg/dL POC Glucose (mg/dL) 114 H (75-99) mg/dL Phosphorus 7.9 H (2.5-4.5) mg/dL AST (14-36) U/L Alkaline Phosphatase (38-126) U/L Lactate Dehydrogenase (313-618) U/L Creatine Kinase (30-135) U/L C-Reactive Protein (<10.0) mg/L Total Protein (6.3-8.2) g/dL Albumin (3.5-5.0) g/dL 12/25/19 12/25/19 12/25/19 Range/Units 03:49 03:49 03:49 Hgb (11.4-16.0) gm/dL MCHC (31.0-37.0) g/dL RDW (11.5-15.5) % Plt Count (150-450) k/uL Lymphocytes # (1.0-4.8) k/uL Fibrinogen 692 H (200-500) mg/dL D-Dimer 4.20 H (<0.60) mg/L FEU Sodium 134 L (137-145) mmol/L BUN 56 H (7-17) mg/dL Creatinine 3.11 H (0.52-1.04) mg/dL Glucose 134 H (74-99) mg/dL POC Glucose (mg/dL) (75-99) mg/dL Phosphorus (2.5-4.5) mg/dL AST 54 H (14-36) U/L Alkaline Phosphatase 33 L (38-126) U/L Lactate Dehydrogenase 1990 H (313-618) U/L Creatine Kinase 146 H (30-135) U/L C-Reactive Protein 249.4 H (<10.0) mg/L Total Protein 6.1 L (6.3-8.2) g/dL Albumin 2.7 L (3.5-5.0) g/dL Assessment and Plan Plan: Assessment: 1. Acute kidney injury secondary to ATN secondary to cardiorenal syndrome and Covid 19 infection. Creatinine 3.4 on admission and is 3.8 today. Started on hemodialysis December 22. Using AV graft. 2. 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 3. Acute hypoxic respiratory failure. 4. Acute on chronic diastolic CHF. 5. Volume overload. Improved with UF and diuresis. 6. Chronic kidney disease mineral bone disease maintained on calcitriol. Phosphorus high at 7.9. 7. Metabolic acidosis secondary to acute kidney injury. Resolved. 8. Hypertension with chronic kidney disease. Stable. 9. Covid 19 infection maintained on steroids and Remdesivir. Plan: Maintain IV Lasix. Third treatment of hemodialysis today. Add Renvela with meals. Hold hydralazine for systolic blood pressure less than 120.
--- NOTE | 2019-12-25 09:21 | PN ---
PROGRESS NOTE Mrs. Liao is an 79-year-old female who presented with symptoms of dyspnea and was found to be COVID-19 positive with pneumonia. She had end-stage renal disease and was started on dialysis. From the cardiac standpoint, there is no evidence of active congestive heart failure at this time. The third dyspnea is more related to her pulmonary infection. She had mild troponin elevation related to the COVID-19 infection. She continues to be on amlodipine 10 mg daily, aspirin once a day, Lipitor 20 mg daily, dexamethasone, furosemide 80 mg IV q.12 hours, metoprolol tartrate 25 mg twice a day and Remdesivir. PHYSICAL EXAMINATION: Blood pressure is running in the 110s with a heart rate in the 70s. LAB DATA: Her BUN and creatinine 56 and 3.1, potassium 4.0, hemoglobin 10.8. Her LDH is 1990. Her C-reactive protein is 294. IMPRESSION: 1. Acute pneumonia from COVID-19. 2. End-stage renal disease, on hemodialysis. 3. Hypocalcemia related to her lung infection. 4. History of hypertension. 5. Hyperlipidemia. RECOMMENDATION: From the cardiac standpoint, will continue present therapy. Will see him on an as- needed basis. Please feel free to call us for any question. MMODL / IJN: [id number] /
[2019-12-25] MEDS: ATORVASTATIN 20 MG TAB PO SCH (10:07)
[2019-12-25] MEDS: DOCUSATE 100 MG CAP PO SCH ×2 (10:07→21:00)
[2019-12-25] MEDS: ASPIRIN 81 MG PO SCH (10:07)
[2019-12-25] MEDS: LEVOTHYROXINE 75 MCG TAB PO SCH (10:07)
[2019-12-25] MEDS: FERROUS SULFATE 325 MG TAB PO SCH (10:07)
[2019-12-25] MEDS: METOPROLOL TARTRATE 25 MG TAB PO SCH ×2 (10:07→20:59)
[2019-12-25 11:29] LABS: Ferritin 1663.8 ng/mL (10.0-291.0)
[2019-12-25] MEDS: prednisoLONE ACETATE 1% OPHTH DROPS 5 ML BTL BOTH EYES SCH ×3 (11:54→21:01)
[2019-12-25] MEDS: DEXAMETHASONE SOD PHOSPHATE 10 MG/ML 1 ML VIAL IV SCH (11:54)
[2019-12-25] MEDS: SEVELAMER 800 MG TAB PO SCH ×2 (12:15→18:58)
[2019-12-25 12:47] LABS: Hepatitis A Antibody IgM Non-Reactive (Non-Reactive); Hepatitis B Core IgM Non-Reactive (Non-Reactive); Hepatitis B Surface Antigen Non-Reactive (Non-Reactive); Hepatitis C IgG Antibody Non-Reactive (Non-Reactive)
--- NOTE | 2019-12-25 13:35 | P.PN ---
Subjective Progress Note Date: 12/25/19 (Covid19 pneumonia and infection) Progress note date of service 12/25/2019. Patient seen and evaluated today in the ICU 254-1. Patient's conscious alert oriented. She is on BiPAP. Dialysis nurses starting her third dialysis today. Through her left upper arm with the underlying Spring- Ulysses graft. Hypertension has been fairly well controlled with the removal of fluid with each dialysis. No edema and the heart was regular sinus patient presented to the ER with acute pulmonary edema, recent chest x-ray indicating upper lung field and the lower lung field with infiltrate with the indication of Covid pneumonia. The head was normocephalic and atraumatic. Neck was supple no JVD no thyromegaly no lymphadenopathy trachea midline. Chest: Lung is improving herniation however still infiltrate upper and the lower lung angel by the chest x-ray with the underlying BiPAP with the FiO2 of 80% and pulse ox 93. Her vital sign indicating temperature 90.8 F oral, pulse rate 77 per minute, respiratory rate 1930 minute, blood pressure 130/62. Heart was regular sinus rhythm. Abdomen is soft positive bowel sounds no tenderness in the 4 quadrants. Extremities the edema of the lower extremities has been gradual improvement with significant pullout water on dialysis. No neurological deficit. No tremor. Laboratory WBC 7.6, hemoglobin 10.8 was normal iron and serum ferritin which indicating anemia secondary to chronic renal disease., She has thrombocytopenia with a platelet 93. D-dimer is has been progressively improved from 12.46 currently is 4.20., Serum ferritin 1663.8. AST 54 a LT 24 alk phos 33 LDH was 2094 and today improving to 1990. Creatinine kinase 146 C-reactive protein 249.4 which is improved from yesterday, Total protein 6.1, albumin 2.7, Coronavirus detected with the underlying testing for hepatitis A IgM antibody and hepatitis B surface antigen, hepatitis B core IgM antibody and hepatitis C IgG antibody by the was all negative nonreactive Chest x-ray today: Stable air space infiltrate within the upper and lower lobe with the overall change was not appreciated . Assessment: #1 acute pulmonary edema #2 volume overload #3 Covid19 pneumonia and infection. #4 acute kidney injury necessitate dialysis #5 chronic kidney disease stage IV #6 patient started dialysis hemodialysis today #3. #7 shortness of breath was bilateral infiltrate upper and the lower lung field secondary to Covid viral infection #8 diabetes mellitus type 2 monitored and controlled. #9 thrombocytopenia. #10 history of hyperlipidemia however Lipitor has been discontinued by cardiology/critical care. #11 diabetic nephropathy. #12 anemia of renal disease #13 hyperphosphatemia secondary to acute kidney injury and has been started by Dr. Bermudez on renvela 800 mg 3 times a day for phosphate chelation. #14 hypothyroidism on continued supplementation. #15 patient on Lovenox 50 mg subcu acute 24 hours #16 on Lasix IV 80 mg every 12 hours. #17 Remdesivir 100 mg IV/and 250 mL once every 24 hour for a total of 4 bags Plan: #1 continue the current treatment #2 patient currently in ICU monitored by critical care, nephrology, cardiology. #2 continuing the dialysis from the left arm Spring-Ulysses/fistula. #3 monitoring the blood sugar. #4 continuing the dexamethasone 6 mg IV for total of 10 doses. #5 monitoring the blood sugar #6 patient received conversant and asthma/ordered by Dr. lindsey #7 CBG to scale cover with short acting insulin before meals meals. Objective - Vital Signs Vital signs: Vital Signs Temp 98.0 F 12/25/19 12:00 Pulse 77 12/25/19 12:00 Resp 19 12/25/19 12:00 BP 130/62 12/25/19 12:00 Pulse Ox 93 L 12/25/19 12:00 Intake & Output 12/24/19 12/25/19 12/25/19 18:59 06:59 18:59 Intake Total 70 60 Output Total 041 26 2511 Balance -350 25 194 Weight 90 kg Intake: IV 70 60 0.9 70 60 Output: Urine 350 45 8 Hemodialysis 1999 Other: Voiding Method Indwelling Catheter Indwelling Catheter - Labs CBC & Chem 7: 12/25/19 03:49 12/25/19 03:49 Labs: Abnormal Lab Results - Last 24 Hours (Table) 12/24/19 12/24/19 12/25/19 Range/Units 04:55 23:30 03:49 Hgb 10.8 L (11.4-16.0) gm/dL MCHC 29.8 L (31.0-37.0) g/dL RDW 19.4 H (11.5-15.5) % Plt Count 93 L (150-450) k/uL Lymphocytes # 0.3 L (1.0-4.8) k/uL Fibrinogen (200-500) mg/dL D-Dimer (<0.60) mg/L FEU Sodium (137-145) mmol/L BUN (7-17) mg/dL Creatinine (0.52-1.04) mg/dL Glucose (74-99) mg/dL POC Glucose (mg/dL) 114 H (75-99) mg/dL Phosphorus 7.9 H (2.5-4.5) mg/dL Ferritin (10.0-291.0) ng/mL AST (14-36) U/L Alkaline Phosphatase (38-126) U/L Lactate Dehydrogenase (313-618) U/L Creatine Kinase (30-135) U/L C-Reactive Protein (<10.0) mg/L Total Protein (6.3-8.2) g/dL Albumin (3.5-5.0) g/dL 12/25/19 12/25/19 12/25/19 Range/Units 03:49 03:49 03:49 Hgb (11.4-16.0) gm/dL MCHC (31.0-37.0) g/dL RDW (11.5-15.5) % Plt Count (150-450) k/uL Lymphocytes # (1.0-4.8) k/uL Fibrinogen 692 H (200-500) mg/dL D-Dimer 4.20 H (<0.60) mg/L FEU Sodium 134 L (137-145) mmol/L BUN 56 H (7-17) mg/dL Creatinine 3.11 H (0.52-1.04) mg/dL Glucose 134 H (74-99) mg/dL POC Glucose (mg/dL) (75-99) mg/dL Phosphorus (2.5-4.5) mg/dL Ferritin 1663.8 H (10.0-291.0) ng/mL AST 54 H (14-36) U/L Alkaline Phosphatase 33 L (38-126) U/L Lactate Dehydrogenase 1990 H (313-618) U/L Creatine Kinase 146 H (30-135) U/L C-Reactive Protein 249.4 H (<10.0) mg/L Total Protein 6.1 L (6.3-8.2) g/dL Albumin 2.7 L (3.5-5.0) g/dL
--- NOTE | 2019-12-25 15:09 | P.PN ---
Subjective Progress Note Date: 12/25/19 79-year-old -[place] female patient with known history of chronic kidney disease secondary to diabetic nephropathy. The patient was progressively getting worse over the past few days and her shortness of breath started approximately 3 days ago. The patient is known to have chronic stage for kidney disease. The patient came into the hospital because of an acute hypoxic respiratory failure. Chest x-ray showed diffuse but the pulmonary infiltrates. She denied having any fever. No significant cough or sputum production. Her urine output was low. I saw the patient emergency department the patient was already on BiPAP at a pressure of 10/5 with an FiO2 of 100%. I saw the patient on Lasix 80 mg IV every 12 hours. Nephrology was consulted for immediate hemodialysis knowing that the patient has a left upper extremity AV graft which is ready to be used. This was placed few months back. Subsequently, the patient was also checked for carbon 19 and test came back positive. The patient has a white cell count of 11.8. The patient has lymphopenia with a lymphocyte count of 0.9. The coagulation profile was within normal limits. The patient has a BUN of 67 with a creatinine of 3.7. The echocardiogram was done at the bedside and the patient has a mild to moderate mitral regurgitation. Left ventricular ejection fraction is essentially within normal limits. The patient has a GFR which is currently down to 13. Nevertheless, with dialysis, should be able to put the patient on a combination of treatment including Remdesivir. Despite her negative for 44 temperature, the patient started developing temperature the emergency department with a T-max of 101.7. 12/24/2019, seeing the patient for a follow-up. She still in the emergency department as the patient did not find her way up to the ICU yet. Noted the patient diffuse bilateral pulmonary infiltrates with extensive consolidation of the chest x-ray is noted on today's chest x-ray. The patient remains on BiPAP for respiratory support. Currently is in the BiPAP at a pressure of 10/5 with an FiO2 of 80%. No significant respiratory distress at rest pH is able to tolerate the BiPAP without any major difficulties. Noted the patient underwent her first session of hemodialysis yesterday and second session will be done today. The patient remains on Decadron. The patient remains on Remdesivir. The patient is being diuresed with IV Lasix 80 mg IV push every 12 hours. Lovenox dose was adjusted up to 50 mg subcu every 24 hours of the patient's d- dimer was quite elevated at 12.4 and the dose adjustments was done based on her underlying renal failure. On today's evaluation, the patient is a GFR of 12 and the creatinine is at 3.8. The patient is receiving IV Lasix. The ferritin level is 1115. The CRP is at 339. The LDH level is 2094. The patient was admitted on 3.0 with a hemoglobin of 10.2. Platelet counts are low at 95. The liver function tests are nonelevated. She is afebrile for now 12/25/2019, the patient is being seen in follow-up. The patient remains on a BiPAP at a pressure of 10/5 cm of water and FiO2 of 80%. Unable to wean down the FiO2 any further as the patient patient is very borderline. She is very much BiPAP dependent and she desaturates easily once taken off the BiPAP. She underwent a sessions of hemodialysis on 12/23/2019 and 12/24/2019 and on 2 sessions a total of 4 L of fluid was removed. The patient is currently awake and alert. She is responsive. She is following commands. She remains on the same treatment this being offered for Covid 19 pneumonia and the patient remains on a combination of Decadron,Remdesivir and Lovenox. The patient has a chest x-ray remains essentially unchanged and the patient is stable airspace disease and infiltrates bilaterally in the upper and lower lung angel. The inflammatory markers are still quite elevated. Serum ferritin is 1663, the LDH is at 1990, and the CRP at 249. Hepatitis profile is been negative. D-dimer is at 4.2 which is lower compared to yesterday. Objective - Vital Signs Vital signs: Vital Signs Temp 98.5 F 12/25/19 04:00 Pulse 71 12/25/19 07:00 Resp 20 12/25/19 07:00 BP 117/60 12/25/19 07:00 Pulse Ox 85 L 12/25/19 07:00 Intake & Output 12/24/19 12/25/19 12/25/19 18:59 06:59 18:59 Intake Total 70 10 Output Total 350 45 8 Balance -350 25 2 Weight 90 kg Intake: IV 70 10 0.9 70 10 Output: Urine 350 45 8 Other: Voiding Method Indwelling Catheter - Exam Gen. appearance the patient is a mild degree of respiratory distress currently on a BiPAP at a pressure of 10/5 with an FiO2 of 80 %. She is not using excessi ve muscle breathing. Head exam was generally normal. There was no scleral icterus or corneal arcus. Mucous membranes were moist. Neck was supple and without jugular venous distension, thyromegaly, or carotid bruits. Carotids were easily palpable bilaterally. There was no adenopathy. Lungs sounds are diminished in the patient's correct in the mid and the lower lung angel bilaterally. Cardiac exam revealed the PMI to be normally situated and sized. The rhythm was regular and no extrasystoles were noted during several minutes of auscultation. The first and second heart sounds were normal and physiologic splitting of the second heart sound was noted. There were no murmurs, rubs, clicks, or gallops. Abdominal exam revealed normal bowel sounds. The abdomen was soft, non-tender, and without masses, organomegaly, or appreciable enlargement of the abdominal aorta. Examination of the extremities revealed easily palpable radial, femoral and pedal pulses. There was no cyanosis, clubbing or edema.. The patient has a functional AV fistula. Examination of the skin revealed no evidence of significant rashes, suspicious appearing nevi or other concerning lesions. Neurologically, the patient is awake and alert and the patient does not have any focal neurological deficit. Cranial nerves are essentially intact. - Labs CBC & Chem 7: 12/25/19 03:49 12/25/19 03:49 Labs: Abnormal Lab Results - Last 24 Hours (Table) 12/24/19 12/24/19 12/25/19 Range/Units 04:55 23:30 03:49 Hgb 10.8 L (11.4-16.0) gm/dL MCHC 29.8 L (31.0-37.0) g/dL RDW 19.4 H (11.5-15.5) % Plt Count 93 L (150-450) k/uL Lymphocytes # 0.3 L (1.0-4.8) k/uL Fibrinogen (200-500) mg/dL D-Dimer (<0.60) mg/L FEU Sodium (137-145) mmol/L BUN (7-17) mg/dL Creatinine (0.52-1.04) mg/dL Glucose (74-99) mg/dL POC Glucose (mg/dL) 114 H (75-99) mg/dL Phosphorus 7.9 H (2.5-4.5) mg/dL AST (14-36) U/L Alkaline Phosphatase (38-126) U/L Lactate Dehydrogenase (313-618) U/L Creatine Kinase (30-135) U/L C-Reactive Protein (<10.0) mg/L Total Protein (6.3-8.2) g/dL Albumin (3.5-5.0) g/dL 12/25/19 12/25/19 12/25/19 Range/Units 03:49 03:49 03:49 Hgb (11.4-16.0) gm/dL MCHC (31.0-37.0) g/dL RDW (11.5-15.5) % Plt Count (150-450) k/uL Lymphocytes # (1.0-4.8) k/uL Fibrinogen 692 H (200-500) mg/dL D-Dimer 4.20 H (<0.60) mg/L FEU Sodium 134 L (137-145) mmol/L BUN 56 H (7-17) mg/dL Creatinine 3.11 H (0.52-1.04) mg/dL Glucose 134 H (74-99) mg/dL POC Glucose (mg/dL) (75-99) mg/dL Phosphorus (2.5-4.5) mg/dL AST 54 H (14-36) U/L Alkaline Phosphatase 33 L (38-126) U/L Lactate Dehydrogenase 1990 H (313-618) U/L Creatine Kinase 146 H (30-135) U/L C-Reactive Protein 249.4 H (<10.0) mg/L Total Protein 6.1 L (6.3-8.2) g/dL Albumin 2.7 L (3.5-5.0) g/dL Assessment and Plan Plan: 1 acute COVID 19 related pneumonia with secondary hypoxic respiratory failure. The patient currently is on BiPAP for the story support. FiO2 has been weaned down gradually down to 80%. The patient is on treatment with a combination of Decadron and Remdesivir and the patient will be given convalescent plasma once available. 2 acute BiPAP dependent respiratory failure currently on a BiPAP at a pressure of 10/5 with an FiO2 of 80%. Chest x-ray still showing diffuse but the pulmonary infiltrates 3 fever secondary to above 4 acute on chronic kidney disease and the patient is currently receiving hemodialysis through an AV fistula in the left upper extremity. 4 chronic stage IV kidney disease with a baseline creatinine of 2.6-2.8 and the patient has biopsy-proven diabetic nephropathy with fibrosis and tubular atrophy 6 chronic diastolic heart failure, the patient has an ejection fraction of 50- 55% and the patient has no significant pulmonary hypertension. There is mild to moderate mitral regurgitation. 7 metabolic acidosis secondary to above, improved 8 hypertension 9 hyperlipidemia 10 gout 11 chronic anemia and hemoglobin currently stable 12 thrombocytopenia, could be viral in nature, still low but stable Plan Keep the patient in intensive care unit Continue Decadron 6 mg by mouth daily Continue Remdesivir and the patient should be able to tolerate the medication as long as the patient is being dialyzed and this will be coordinated with nephrology and pharmacy We'll give the patient convalescent plasma if available. Daily chest x-rays Titrate FiO2 to maintain a saturation above 90%. Keep the patient a BiPAP for now the pressure of 10/5 and FiO2 is currently at 80% Continue the supplements including vitamin C, vitamin D, melatonin and Pepcid dialysis can be done through the AV fistula per nephrology Check inflammatory markers and the values from today have been noted D-dimer was elevated and the Lovenox was adjusted up to 50 mg subcu every 12 hours We will continue to follow make further recommendations based on her progress. The patient's condition is critical at this point in time. I contacted the daughter and updated on the condition. Time with Patient: Greater than 30
[2019-12-25] MEDS: INSULIN ASPART (NovoLOG) 100 UNIT/ML VIAL SQ SCH (19:03)
[2019-12-25 19:05] LABS: Glucose,Whole Blood 115 mg/dL (75-99)
[2019-12-25] MEDS: amLODIPine 10 MG TAB PO SCH (20:59)
[2019-12-25] MEDS: ENOXAPARIN 60 MG/0.6 ML SYRINGE SQ SCH (20:59)
[2019-12-26 05:36] LABS: Anisocytosis Slight; Basophils % (A) 0 %; Eosinophils # (A) 0.1 k/uL (0-0.7); Eosinophils % (A) 1 %; HCT 31.7 % (34.0-46.0); HGB 9.8 gm/dL (11.4-16.0); Lymphocytes # (A) 0.3 k/uL (1.0-4.8); Lymphocytes % (A) 4 %; MCH 26.5 pg (25.0-35.0); MCV 85.3 fL (80.0-100.0); Mean Platelet Volume 10.1; Microcytosis Slight; Monocytes # (A) 0.1 k/uL (0-1.0); Monocytes % (A) 2 %; Neutrophils # (A) 6.6 k/uL (1.3-7.7); Neutrophils % (A) 92 %; Platelet Count 115 k/uL (150-450); RBC 3.72 m/uL (3.80-5.40); RDW 19.4 % (11.5-15.5); WBC 7.2 k/uL (3.8-10.6)
[2019-12-26 05:58] LABS: Albumin 2.9 g/dL (3.5-5.0); Calcium 9.9 mg/dL (8.4-10.2); Potassium 4.4 mmol/L (3.5-5.1); Total Bilirubin 0.5 mg/dL (0.2-1.3); Total Protein 6.2 g/dL (6.3-8.2)
[2019-12-26 06:12] LABS: C Reactive Protein 181.2 mg/L (<10.0)
[2019-12-26] MEDS: LEVOTHYROXINE 75 MCG TAB PO SCH (06:48)
[2019-12-26] MEDS: SEVELAMER 800 MG TAB PO SCH ×3 (06:51→16:41)
--- NOTE | 2019-12-26 07:41 | XR ---
EXAMINATION TYPE: XR chest 1V portable DATE OF EXAM: 12/26/2019 COMPARISON: Prior chest x-ray 12/25/2019 HISTORY: Abnormal chest x-ray TECHNIQUE: Single frontal view of the chest is obtained. FINDINGS: Bilateral airspace disease is noted, there may be some improvement in the aeration. No marlo dent pneumothorax or pleural effusion. Exam is expiratory. Heart is enlarged. Aorta is dense. Suspect azygos lobe is present and noted incidentally. IMPRESSION: Improvement in bilateral airspace disease. Additional follow-up suggested.
[2019-12-26] MEDS: DEXAMETHASONE SOD PHOSPHATE 10 MG/ML 1 ML VIAL IV SCH (10:56)
[2019-12-26] MEDS: INSULIN ASPART (NovoLOG) 100 UNIT/ML VIAL SQ SCH ×3 (10:56→18:00)
[2019-12-26] MEDS: FUROSEMIDE 10 MG/ML 10 ML VIAL IV SCH ×2 (10:59→23:12)
[2019-12-26] MEDS: ATORVASTATIN 20 MG TAB PO SCH (11:00)
[2019-12-26] MEDS: METOPROLOL TARTRATE 25 MG TAB PO SCH ×2 (11:00→23:11)
[2019-12-26] MEDS: prednisoLONE ACETATE 1% OPHTH DROPS 5 ML BTL BOTH EYES SCH ×3 (11:00→23:26)
[2019-12-26] MEDS: DOCUSATE 100 MG CAP PO SCH ×2 (11:00→23:11)
[2019-12-26] MEDS: ASPIRIN 81 MG PO SCH (11:00)
[2019-12-26] MEDS: FERROUS SULFATE 325 MG TAB PO SCH (11:00)
--- NOTE | 2019-12-26 12:45 | P.PN ---
Subjective Patient is seen in follow-up for acute kidney injury on chronic kidney disease. Patient has chronic kidney disease stage IV with baseline creatinine near 2.6- 2.8. Creatinine peaked at 3.8 this admission. She was started on hemodialysis December 22 for worsening renal failure and volume overload. She has undergone 3 treatments of hemodialysis so far with total 6 L ultrafiltration. She is also on IV Lasix. She is Covid 19 positive. Currently on BiPAP. Oral intake is poor as her oxygen saturation drops when she comes off the BiPAP. No chest pain or shortness of breath at this time. Vital signs are stable. General: The patient appeared well nourished and normally developed. Exam discussed in detail with the nurse. Objective - Vital Signs Vital signs: Vital Signs Temp 98.1 F 12/26/19 08:00 Pulse 72 12/26/19 11:00 Resp 20 12/26/19 11:00 BP 143/91 12/26/19 11:00 Pulse Ox 84 L 12/26/19 11:00 Intake & Output 12/25/19 12/26/19 12/26/19 18:59 06:59 18:59 Intake Total 120 599 550 Output Total 4008 75 20 Balance -3888 524 530 Weight 90.1 kg Intake: IV 120 370 50 0.9 120 120 50 Remdesivir (Eua) 100 mg 250 In Sodium Chloride 0.9% 250 ml @ 250 mls/hr IVPB Q24H [facility] Rx#:[id number] Oral 500 Blood Product 199 Ffp Pher Conval Covid19 199 Acda 2 Unit [id number] Other 30 Ffp Pher Conval Covid19 30 Acda 2 Unit [id number] Output: Urine 8 75 20 Hemodialysis 4000 Other: Voiding Method Indwelling Catheter Indwelling Catheter Indwelling Catheter # Bowel Movements 1 - Labs CBC & Chem 7: 12/26/19 05:20 12/26/19 05:20 Labs: Abnormal Lab Results - Last 24 Hours (Table) 12/25/19 12/26/19 12/26/19 Range/Units 19:02 05:20 05:20 RBC 3.72 L (3.80-5.40) m/uL Hgb 9.8 L (11.4-16.0) gm/dL Hct 31.7 L (34.0-46.0) % RDW 19.4 H (11.5-15.5) % Plt Count 115 L (150-450) k/uL Lymphocytes # 0.3 L (1.0-4.8) k/uL Fibrinogen (200-500) mg/dL Sodium 134 L (137-145) mmol/L BUN 61 H (7-17) mg/dL Creatinine 3.28 H (0.52-1.04) mg/dL Glucose 181 H (74-99) mg/dL POC Glucose (mg/dL) 115 H (75-99) mg/dL AST 51 H (14-36) U/L Lactate Dehydrogenase 1955 H (313-618) U/L C-Reactive Protein 181.2 H (<10.0) mg/L Total Protein 6.2 L (6.3-8.2) g/dL Albumin 2.9 L (3.5-5.0) g/dL 12/26/19 Range/Units 05:20 RBC (3.80-5.40) m/uL Hgb (11.4-16.0) gm/dL Hct (34.0-46.0) % RDW (11.5-15.5) % Plt Count (150-450) k/uL Lymphocytes # (1.0-4.8) k/uL Fibrinogen 597 H (200-500) mg/dL Sodium (137-145) mmol/L BUN (7-17) mg/dL Creatinine (0.52-1.04) mg/dL Glucose (74-99) mg/dL POC Glucose (mg/dL) (75-99) mg/dL AST (14-36) U/L Lactate Dehydrogenase (313-618) U/L C-Reactive Protein (<10.0) mg/L Total Protein (6.3-8.2) g/dL Albumin (3.5-5.0) g/dL Assessment and Plan Plan: Assessment: 1. Acute kidney injury secondary to ATN secondary to cardiorenal syndrome and Covid 19 infection. Creatinine peaked at 3.8 this admission. Started on hemodialysis December 22. Using AV graft. Urine output is 5-10 mL an hour. 2. 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 3. Acute hypoxic respiratory failure. 4. Acute on chronic diastolic CHF. 5. Volume overload. Improved with UF and diuresis. 6. Chronic kidney disease mineral bone disease maintained on calcitriol. Emiliana sphorus high at 7.9 - started on Renvela. 7. Metabolic acidosis secondary to acute kidney injury. Resolved. 8. Hypertension with chronic kidney disease. Stable. 9. Covid 19 infection maintained on steroids and Remdesivir. Plan: Maintain IV Lasix. Hold hemodialysis today. Plan for hemodialysis tomorrow. Hold hydralazine for systolic blood pressure less than 120.
--- NOTE | 2019-12-26 14:42 | P.PN ---
Subjective Progress Note Date: 12/26/19 79-year-old -[place] female patient with known history of chronic kidney disease secondary to diabetic nephropathy. The patient was progressively getting worse over the past few days and her shortness of breath started approximately 3 days ago. The patient is known to have chronic stage for kidney disease. The patient came into the hospital because of an acute hypoxic respiratory failure. Chest x-ray showed diffuse but the pulmonary infiltrates. She denied having any fever. No significant cough or sputum production. Her urine output was low. I saw the patient emergency department the patient was already on BiPAP at a pressure of 10/5 with an FiO2 of 100%. I saw the patient on Lasix 80 mg IV every 12 hours. Nephrology was consulted for immediate hemodialysis knowing that the patient has a left upper extremity AV graft which is ready to be used. This was placed few months back. Subsequently, the patient was also checked for carbon 19 and test came back positive. The patient has a white cell count of 11.8. The patient has lymphopenia with a lymphocyte count of 0.9. The coagulation profile was within normal limits. The patient has a BUN of 67 with a creatinine of 3.7. The echocardiogram was done at the bedside and the patient has a mild to moderate mitral regurgitation. Left ventricular ejection fraction is essentially within normal limits. The patient has a GFR which is currently down to 13. Nevertheless, with dialysis, should be able to put the patient on a combination of treatment including Remdesivir. Despite her negative for 44 temperature, the patient started developing temperature the emergency department with a T-max of 101.7. 12/24/2019, seeing the patient for a follow-up. She still in the emergency department as the patient did not find her way up to the ICU yet. Noted the patient diffuse bilateral pulmonary infiltrates with extensive consolidation of the chest x-ray is noted on today's chest x-ray. The patient remains on BiPAP for respiratory support. Currently is in the BiPAP at a pressure of 10/5 with an FiO2 of 80%. No significant respiratory distress at rest pH is able to tolerate the BiPAP without any major difficulties. Noted the patient underwent her first session of hemodialysis yesterday and second session will be done today. The patient remains on Decadron. The patient remains on Remdesivir. The patient is being diuresed with IV Lasix 80 mg IV push every 12 hours. Lovenox dose was adjusted up to 50 mg subcu every 24 hours of the patient's d- dimer was quite elevated at 12.4 and the dose adjustments was done based on her underlying renal failure. On today's evaluation, the patient is a GFR of 12 and the creatinine is at 3.8. The patient is receiving IV Lasix. The ferritin level is 1115. The CRP is at 339. The LDH level is 2094. The patient was admitted on 3.0 with a hemoglobin of 10.2. Platelet counts are low at 95. The liver function tests are nonelevated. She is afebrile for now 12/25/2019, the patient is being seen in follow-up. The patient remains on a BiPAP at a pressure of 10/5 cm of water and FiO2 of 80%. Unable to wean down the FiO2 any further as the patient patient is very borderline. She is very much BiPAP dependent and she desaturates easily once taken off the BiPAP. She underwent a sessions of hemodialysis on 12/23/2019 and 12/24/2019 and on 2 sessions a total of 4 L of fluid was removed. The patient is currently awake and alert. She is responsive. She is following commands. She remains on the same treatment this being offered for Covid 19 pneumonia and the patient remains on a combination of Decadron,Remdesivir and Lovenox. The patient has a chest x-ray remains essentially unchanged and the patient is stable airspace disease and infiltrates bilaterally in the upper and lower lung angel. The inflammatory markers are still quite elevated. Serum ferritin is 1663, the LDH is at 1990, and the CRP at 249. Hepatitis profile is been negative. D-dimer is at 4.2 which is lower compared to yesterday. On 12/26/2019, the patient is doing well. She started on a BiPAP. She is not using accessory muscles of breathing. She is able to communicate or BiPAP machine. BiPAP is running at a pressure of 10/5 with an FiO2 of 80% which I reduced it down to 60% on today's evaluation. The chest x-ray shows some improvement in the bilateral diffuse pulmonary infiltrates and infiltrates are less dense compared to yesterday. The patient underwent hemodialysis yesterday were 2 L of fluid was taken off. She is on Decadron. She is on Lovenox and the patient is also on day 3 of Remdesivir. The patient is having elevated inflammatory markers. LDH is at 1955 which is essentially the same as yesterday. CRP is down to 181. This of the electrodes are all within normal limits. Ferritin level was 1663 from yesterday. The patient's d-dimer is at 4.2. Note that the patient also received a unit of convalescent immunoglobulin. Objective - Vital Signs Vital signs: Vital Signs Temp 98.1 F 12/26/19 08:00 Pulse 72 12/26/19 11:00 Resp 20 12/26/19 11:00 BP 143/91 12/26/19 11:00 Pulse Ox 84 L 12/26/19 11:00 Intake & Output 12/25/19 12/26/19 12/26/19 18:59 06:59 18:59 Intake Total 120 599 550 Output Total 4008 75 20 Balance -3888 524 530 Weight 90.1 kg Intake: IV 120 370 50 0.9 120 120 50 Remdesivir (Eua) 100 mg 250 In Sodium Chloride 0.9% 250 ml @ 250 mls/hr IVPB Q24H [facility] Rx#:[id number] Oral 500 Blood Product 199 Ffp Pher Conval Covid19 199 Acda 2 Unit [id number] Other 30 Ffp Pher Conval Covid19 30 Acda 2 Unit [id number] Output: Urine 8 75 20 Hemodialysis 4000 Other: Voiding Method Indwelling Catheter Indwelling Catheter Indwelling Catheter # Bowel Movements 1 - Exam Gen. appearance the patient is a mild degree of respiratory distress currently on a BiPAP at a pressure of 10/5 with an FiO2 of 80 %. She is not using excessive muscle breathing. Head exam was generally normal. There was no scleral icterus or corneal arcus. Mucous membranes were moist. Neck was supple and without jugular venous distension, thyromegaly, or carotid bruits. Carotids were easily palpable bilaterally. There was no adenopathy. Lungs sounds are diminished in the patient's correct in the mid and the lower lung angel bilaterally. Cardiac exam revealed the PMI to be normally situated and sized. The rhythm was regular and no extrasystoles were noted during several minutes of auscultation. The first and second heart sounds were normal and physiologic splitting of the second heart sound was noted. There were no murmurs, rubs, clicks, or gallops. Abdominal exam revealed normal bowel sounds. The abdomen was soft, non-tender, and without masses, organomegaly, or appreciable enlargement of the abdominal aorta. Examination of the extremities revealed easily palpable radial, femoral and pedal pulses. There was no cyanosis, clubbing or edema.. The patient has a f unctional AV fistula. Examination of the skin revealed no evidence of significant rashes, suspicious appearing nevi or other concerning lesions. Neurologically, the patient is awake and alert and the patient does not have any focal neurological deficit. Cranial nerves are essentially intact. - Labs CBC & Chem 7: 12/26/19 05:20 12/26/19 05:20 Labs: Abnormal Lab Results - Last 24 Hours (Table) 12/25/19 12/26/19 12/26/19 Range/Units 19:02 05:20 05:20 RBC 3.72 L (3.80-5.40) m/uL Hgb 9.8 L (11.4-16.0) gm/dL Hct 31.7 L (34.0-46.0) % RDW 19.4 H (11.5-15.5) % Plt Count 115 L (150-450) k/uL Lymphocytes # 0.3 L (1.0-4.8) k/uL Fibrinogen (200-500) mg/dL Sodium 134 L (137-145) mmol/L BUN 61 H (7-17) mg/dL Creatinine 3.28 H (0.52-1.04) mg/dL Glucose 181 H (74-99) mg/dL POC Glucose (mg/dL) 115 H (75-99) mg/dL AST 51 H (14-36) U/L Lactate Dehydrogenase 1955 H (313-618) U/L C-Reactive Protein 181.2 H (<10.0) mg/L Total Protein 6.2 L (6.3-8.2) g/dL Albumin 2.9 L (3.5-5.0) g/dL 12/26/19 Range/Units 05:20 RBC (3.80-5.40) m/uL Hgb (11.4-16.0) gm/dL Hct (34.0-46.0) % RDW (11.5-15.5) % Plt Count (150-450) k/uL Lymphocytes # (1.0-4.8) k/uL Fibrinogen 597 H (200-500) mg/dL Sodium (137-145) mmol/L BUN (7-17) mg/dL Creatinine (0.52-1.04) mg/dL Glucose (74-99) mg/dL POC Glucose (mg/dL) (75-99) mg/dL AST (14-36) U/L Lactate Dehydrogenase (313-618) U/L C-Reactive Protein (<10.0) mg/L Total Protein (6.3-8.2) g/dL Albumin (3.5-5.0) g/dL Assessment and Plan Plan: 1 acute COVID 19 related pneumonia with secondary hypoxic respiratory failure. The patient currently is on BiPAP for the story support. The chest x-ray shows some limited improvement in the right support infiltrates and the patient seems to much more comfortable. Yesterday less short of breath while wearing the BiPAP. The FiO2 will be dropped down to 60%. The patient is on treatment with a combination of Decadron and Remdesivir and the patient will be given convalescent plasma once available. 2 acute BiPAP dependent respiratory failure currently on a BiPAP at a pressure of 10/5 with an FiO2 of 80%. Chest x-ray still showing diffuse but the pulmonary infiltrates, see above dictation and the patient may be able to to wean FiO2. 3 fever secondary to above 4 acute on chronic kidney disease and the patient is currently receiving hemodialysis through an AV fistula in the left upper extremity. 4 chronic stage IV kidney disease with a baseline creatinine of 2.6-2.8 and the patient has biopsy-proven diabetic nephropathy with fibrosis and tubular atrophy 6 chronic diastolic heart failure, the patient has an ejection fraction of 50- 55% and the patient has no significant pulmonary hypertension. There is mild to moderate mitral regurgitation. 7 metabolic acidosis secondary to above, improved 8 hypertension 9 hyperlipidemia 10 gout 11 chronic anemia and hemoglobin currently stable, hemoglobin is stable at 9.8 12 thrombocytopenia, could be viral in nature, still low but stable Plan Keep the patient in intensive care unit Continue Decadron 6 mg by mouth daily Continue Remdesivir and the patient should be able to tolerate the medication as long as the patient is being dialyzed and this will be coordinated with nephrology and pharmacy the patient has received 1 units of convalescent plasma Chest x-ray from today showing limited improvement Titrate FiO2 to maintain a saturation above 90%. Keep the patient a BiPAP for now the pressure of 10/5 and [id number] FiO2 down to 60%. May be able to reduce the FiO2 further the saturation remains above 90%. A be able to switch this patient to either high flow oxygen or a full face mask with a nonrebreather. Continue the supplements including vitamin C, vitamin D, melatonin and Pepcid dialysis can be done through the AV fistula per nephrology Check inflammatory markers and the values from today have been noted D-dimer was elevated and the Lovenox was adjusted up to 50 mg subcu every 12 hours We will continue to follow make further recommendations based on her progress. The patient's condition is critical at this point in time. I contacted the daughter and updated on the condition.
--- NOTE | 2019-12-26 15:26 | P.PN ---
Subjective Progress Note Date: 12/26/19 Dictation on the progress note date of service 12/26/2019. By Dr. Fritz. Patient seen and evaluated in the ICU to 2541. Patient with acute COVID-19 viral infection with the underlying viral pneumonia. Patient on Decadron 6 mg by mouth daily for 10 days course and Remdisivir loading dose 200 mg to 50 mL IV piggyback followed by 100 mg in 250 mL IV piggyback daily for total of 5 days. Vital sign blood pressure 143/91, respiratory rate 20 per minute, and her oxygenation 84% on BiPAP.. Today chest x-ray showed some improvement. Laboratory indicating fibrinogen is still high 597, and d-dimer yesterday was 4.2 still high. BUN 61/creatinine 3.2 white still high and fluctuating with the estimated gl omerular filtration rate for -[place] 15. Calcium stable 9.9, AST 51, a LT 24,. Alkaline phosphatase 43 normal LDH 1955 still high with the associated dialysis, creatine kinase normalized 92. C-reactive protein gradually improving currently 181.2. Albumin 2.9. Glucose monitoring 114 and an 115 stable. No evidence of hepatitis viral infection a or B or C. On exam: Patient is conscious alert oriented however what has been done and the the dialysis was held today and tomorrow will be started she has so far 3 dialysis sessions with the significant improvement on the pulling of the fluid that she was overloaded with the underlying acute kidney injury with HTN and inability to get rid of excessive fluid which has been significantly improved with dialysis and no edema of the lower extremities. Still has facial puffiness Head was normocephalic and atraumatic. Oropharynx was negative she is on BiPAP. Neck was supple. Chest was markedly improvement however still rhonchi's present bilateral clinically. Heart regular sinus and compensated with the possibility of diastolic congestive heart failure with the pulmonary hypertension. Abdomen obese positive bowel sounds no organ enlargement. Extremities positive pulses and no edema with the pulling out fluid with the dialysis Neurologically stable. Assessment: #1 acute viral pneumonia with Covid 19 #2 pulmonary edema #3 acute kidney injury #4 underlying stage IV Crossing to stage V with the maturity of [place] graft/fistula which dialysis has been done on the left arm. #5 patient on appropriate medication at this time, monitored by critical care and nephrology and cardiology. #6 hyperoxemic respiratory failure currently on BiPAP. #7 hypertension with hypertensive heart disease. #8 hyperlipidemia. 9 #9 elevated fibrin degradation, patient on Lovenox 50 mg subcu every 24 hour and change it today to every 12 hours. #10 anemia of chronic disease and renal disease. Next 11 diabetes mellitus monitor and covered with insulin to scale no oral hypoglycemic agent. #12 hypothyroidism which is covered with thyroid Synthroid No. 13 history of hyper phosphatemia and patient covered with Renvela 800 mg 3 times a day and patient with normal calcium Plan: Continue monitoring the patient and she will be having dialysis tomorrow and hopefully fourth her improvement in her chest x-ray and clinical picture Objective - Vital Signs Vital signs: Vital Signs Temp 98.1 F 12/26/19 08:00 Pulse 72 12/26/19 11:00 Resp 20 12/26/19 11:00 BP 143/91 12/26/19 11:00 Pulse Ox 84 L 12/26/19 11:00 Intake & Output 12/25/19 12/26/19 12/26/19 18:59 06:59 18:59 Intake Total 120 599 550 Output Total 4008 75 20 Balance -3888 524 530 Weight 90.1 kg Intake: IV 120 370 50 0.9 120 120 50 Remdesivir (Eua) 100 mg 250 In Sodium Chloride 0.9% 250 ml @ 250 mls/hr IVPB Q24H [facility] Rx#:[id number] Oral 500 Blood Product 199 Ffp Pher Conval Covid19 199 Acda 2 Unit [id number] Other 30 Ffp Pher Conval Covid19 30 Acda 2 Unit [id number] Output: Urine 8 75 20 Hemodialysis 4000 Other: Voiding Method Indwelling Catheter Indwelling Catheter Indwelling Catheter # Bowel Movements 1 - Labs CBC & Chem 7: 12/26/19 05:20 12/26/19 05:20 Labs: Abnormal Lab Results - Last 24 Hours (Table) 12/25/19 12/26/19 12/26/19 Range/Units 19:02 05:20 05:20 RBC 3.72 L (3.80-5.40) m/uL Hgb 9.8 L (11.4-16.0) gm/dL Hct 31.7 L (34.0-46.0) % RDW 19.4 H (11.5-15.5) % Plt Count 115 L (150-450) k/uL Lymphocytes # 0.3 L (1.0-4.8) k/uL Fibrinogen (200-500) mg/dL Sodium 134 L (137-145) mmol/L BUN 61 H (7-17) mg/dL Creatinine 3.28 H (0.52-1.04) mg/dL Glucose 181 H (74-99) mg/dL POC Glucose (mg/dL) 115 H (75-99) mg/dL AST 51 H (14-36) U/L Lactate Dehydrogenase 1955 H (313-618) U/L C-Reactive Protein 181.2 H (<10.0) mg/L Total Protein 6.2 L (6.3-8.2) g/dL Albumin 2.9 L (3.5-5.0) g/dL 12/26/19 Range/Units 05:20 RBC (3.80-5.40) m/uL Hgb (11.4-16.0) gm/dL Hct (34.0-46.0) % RDW (11.5-15.5) % Plt Count (150-450) k/uL Lymphocytes # (1.0-4.8) k/uL Fibrinogen 597 H (200-500) mg/dL Sodium (137-145) mmol/L BUN (7-17) mg/dL Creatinine (0.52-1.04) mg/dL Glucose (74-99) mg/dL POC Glucose (mg/dL) (75-99) mg/dL AST (14-36) U/L Lactate Dehydrogenase (313-618) U/L C-Reactive Protein (<10.0) mg/L Total Protein (6.3-8.2) g/dL Albumin (3.5-5.0) g/dL
[2019-12-26] MEDS: ENOXAPARIN 60 MG/0.6 ML SYRINGE SQ SCH (16:40)
[2019-12-26] MEDS: amLODIPine 10 MG TAB PO SCH (23:11)
[2019-12-26] MEDS: REMDESIVIR (EUA) 100 MG in SODIUM CHLORIDE 0.9% 250 ML IVPB SCH (23:12)
[2019-12-27 07:35] LABS: C Reactive Protein 151.6 mg/L (<10.0)
--- NOTE | 2019-12-27 07:50 | XR ---
EXAMINATION TYPE: XR chest 1V portable DATE OF EXAM: 12/27/2019 COMPARISON: 12/26/2019 INDICATION: Difficulty breathing TECHNIQUE: Single frontal view of the chest is obtained. FINDINGS: The heart size is enlarged. The pulmonary vasculature is indistinct. There is diffuse increased lung markings bilaterally. Findings appear stable. IMPRESSION: 1. Diffuse bilateral lung infiltrates appear stable
[2019-12-27] MEDS: prednisoLONE ACETATE 1% OPHTH DROPS 5 ML BTL BOTH EYES SCH ×3 (10:10→22:00)
[2019-12-27] MEDS: METOPROLOL TARTRATE 25 MG TAB PO SCH ×2 (10:11→21:40)
[2019-12-27] MEDS: FUROSEMIDE 10 MG/ML 10 ML VIAL IV SCH ×2 (10:11→21:30)
[2019-12-27] MEDS: DOCUSATE 100 MG CAP PO SCH ×2 (10:11→21:29)
[2019-12-27] MEDS: LEVOTHYROXINE 75 MCG TAB PO SCH (10:11)
[2019-12-27] MEDS: ASPIRIN 81 MG PO SCH (10:11)
[2019-12-27] MEDS: DEXAMETHASONE SOD PHOSPHATE 10 MG/ML 1 ML VIAL IV SCH (10:12)
[2019-12-27] MEDS: SEVELAMER 800 MG TAB PO SCH ×3 (10:12→18:45)
[2019-12-27] MEDS: ATORVASTATIN 20 MG TAB PO SCH (10:12)
[2019-12-27] MEDS: FERROUS SULFATE 325 MG TAB PO SCH (10:12)
[2019-12-27 10:32] LABS: Glucose,Whole Blood 120 mg/dL (75-99)
[2019-12-27] MEDS: INSULIN ASPART (NovoLOG) 100 UNIT/ML VIAL SQ SCH ×3 (11:25→18:45)
--- NOTE | 2019-12-27 12:55 | P.PN ---
Subjective Progress Note Date: 12/27/19 (Pulmonary edema, Covid pneumonia, acute kidney injury, volume overload, dialysis left arm [place].) Progress note date of service 12/27/2019 Patient seen and evaluated in the ICU room 254 bed 1. Laboratory: Last lab was done on 12/26 2019. Today lab: Fibrinogen 517, POC glucose 120., LDH 2015. C-reactive protein 151.6. Patient expected to have dialysis today. And they made the blood at the time before or after the dialysis. Nephrology. Chest x-ray indicating diffuse bilateral infiltrate stable. Patient on BiPAP and they started to adjusting her oxygen as well. Patient is sinus rhythm hickey catheter with the acute pulmonary edema or monitoring intake and output. And the amount of fluid that she needed. On the physical examination: Patient seen in the ICU. She is on BiPAP, conscious alert oriented 3, no neurological deficit. Able to move 4 extremities. Fascial edema is improving, lower extremity edema has been result. With the appear clinical improvement with the hemodialysis. Neck was supple no JVD no thyromegaly no lymphadenopathy. Chest: Progressive improvement clinically however the chest x-ray indicating diffuse bilateral on auscultation there is clinical improvement with the lung irradiation. Heart regular sinus rhythm currently compensated. Abdomen: Soft positive bowel sounds no tenderness in the 4 quadrants. Extremities:. Pulses bilateral and symmetrical on the dorsalis pedis and the posterior tibial and no edema on the foot or the shaft. She able to move her extremities and she has underlying arthritis of the knee. Neurologically: Stable no neurodeficit. Assessment: #1 probably patient will have dialysis today. Nephrology and laboratory will be done with the dialysis. #2 she is with clinical progressive improvement. Plan: #1 continue the current program of treatment. #2 followed by nephrology, critical care and pulmonary, cardiology. Continue monitoring the blood pressure and follow-up on. Continue monitoring diabetes mellitus and follow-up. Objective - Vital Signs Vital signs: Vital Signs Temp 97.7 F 12/27/19 12:00 Pulse 73 12/27/19 12:00 Resp 20 12/27/19 12:00 BP 149/66 12/27/19 12:00 Pulse Ox 83 L 12/27/19 12:00 Intake & Output 12/26/19 12/27/19 12/27/19 18:59 06:59 18:59 Intake Total 620 370 60 Output Total 20 425 95 Balance 600 -55 -35 Weight 86.8 kg Intake: IV 120 370 60 0.9 120 120 60 Remdesivir 100mg/250ml 250 Oral 500 Output: Urine 20 425 95 Other: Voiding Method Indwelling Catheter Indwelling Catheter Indwelling Catheter # Bowel Movements 1 - Labs CBC & Chem 7: 12/26/19 05:20 12/26/19 05:20 Labs: Abnormal Lab Results - Last 24 Hours (Table) 12/27/19 12/27/19 12/27/19 Range/Units 06:35 06:35 10:29 Fibrinogen 517 H (200-500) mg/dL POC Glucose (mg/dL) 120 H (75-99) mg/dL Lactate Dehydrogenase 2015 H (313-618) U/L C-Reactive Protein 151.6 H (<10.0) mg/L
--- NOTE | 2019-12-27 12:58 | P.PN ---
Subjective Patient is seen in follow-up for acute kidney injury on chronic kidney disease. Patient has chronic kidney disease stage IV with baseline creatinine near 2.6- 2.8. Creatinine peaked at 3.8 this admission. She was started on hemodialysis December 22 for worsening renal failure and volume overload. She has undergone 3 treatments of hemodialysis so far with total 6 L ultrafiltration. She is also on IV Lasix. She is Covid 19 positive. Currently on BiPAP. Oral intake is poor as her oxygen saturation drops when she comes off the BiPAP. No chest pain or shortness of breath at this time. No changes overnight. Feels hungry. Vital signs are stable. General: The patient appeared well nourished and normally developed. Heart: Regular rate and rhythm. Lungs: Breath sounds decreased. Abdomen: Soft, nontender. Extremities: Trace edema. Objective - Vital Signs Vital signs: Vital Signs Temp 97.7 F 12/27/19 12:00 Pulse 73 12/27/19 12:00 Resp 20 12/27/19 12:00 BP 149/66 12/27/19 12:00 Pulse Ox 83 L 12/27/19 12:00 Intake & Output 12/26/19 12/27/19 12/27/19 18:59 06:59 18:59 Intake Total 620 370 60 Output Total 20 425 95 Balance 600 -55 -35 Weight 86.8 kg Intake: IV 120 370 60 0.9 120 120 60 Remdesivir 100mg/250ml 250 Oral 500 Output: Urine 20 425 95 Other: Voiding Method Indwelling Catheter Indwelling Catheter Indwelling Catheter # Bowel Movements 1 - Labs CBC & Chem 7: 12/26/19 05:20 12/26/19 05:20 Labs: Abnormal Lab Results - Last 24 Hours (Table) 12/27/19 12/27/19 12/27/19 Range/Units 06:35 06:35 10:29 Fibrinogen 517 H (200-500) mg/dL POC Glucose (mg/dL) 120 H (75-99) mg/dL Lactate Dehydrogenase 2015 H (313-618) U/L C-Reactive Protein 151.6 H (<10.0) mg/L Assessment and Plan Plan: Assessment: 1. Acute kidney injury secondary to ATN secondary to cardiorenal syndrome and Covid 19 infection. Creatinine peaked at 3.8 this admission. Started on hemodialysis December 22. Using AV graft. Urine output is 5-10 mL an hour (improves temporarily with IV Lasix but then tapers down again). 2. 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 3. Acute hypoxic respiratory failure. 4. Acute on chronic diastolic CHF. 5. Volume overload. Improved with UF and diuresis. 6. Chronic kidney disease mineral bone disease maintained on calcitriol. Phosphorus high at 7.9 - started on Renvela. 7. Metabolic acidosis secondary to acute kidney injury. Resolved. 8. Hypertension with chronic kidney disease. Stable. 9. Covid 19 infection maintained on steroids and Remdesivir. Plan: Maintain IV Lasix. Hemodialysis today. She will be maintained on Monday schedule.
--- NOTE | 2019-12-27 14:22 | P.PN ---
Subjective Progress Note Date: 12/27/19 79-year-old -[place] female patient with known history of chronic kidney disease secondary to diabetic nephropathy. The patient was progressively getting worse over the past few days and her shortness of breath started approximately 3 days ago. The patient is known to have chronic stage for kidney disease. The patient came into the hospital because of an acute hypoxic respiratory failure. Chest x-ray showed diffuse but the pulmonary infiltrates. She denied having any fever. No significant cough or sputum production. Her urine output was low. I saw the patient emergency department the patient was already on BiPAP at a pressure of 10/5 with an FiO2 of 100%. I saw the patient on Lasix 80 mg IV every 12 hours. Nephrology was consulted for immediate hemodialysis knowing that the patient has a left upper extremity AV graft which is ready to be used. This was placed few months back. Subsequently, the patient was also checked for carbon 19 and test came back positive. The patient has a white cell count of 11.8. The patient has lymphopenia with a lymphocyte count of 0.9. The coagulation profile was within normal limits. The patient has a BUN of 67 with a creatinine of 3.7. The echocardiogram was done at the bedside and the patient has a mild to moderate mitral regurgitation. Left ventricular ejection fraction is essentially within normal limits. The patient has a GFR which is currently down to 13. Nevertheless, with dialysis, should be able to put the patient on a combination of treatment including Remdesivir. Despite her negative for 44 temperature, the patient started developing temperature the emergency department with a T-max of 101.7. 12/24/2019, seeing the patient for a follow-up. She still in the emergency department as the patient did not find her way up to the ICU yet. Noted the patient diffuse bilateral pulmonary infiltrates with extensive consolidation of the chest x-ray is noted on today's chest x-ray. The patient remains on BiPAP for respiratory support. Currently is in the BiPAP at a pressure of 10/5 with an FiO2 of 80%. No significant respiratory distress at rest pH is able to tolerate the BiPAP without any major difficulties. Noted the patient underwent her first session of hemodialysis yesterday and second session will be done today. The patient remains on Decadron. The patient remains on Remdesivir. The patient is being diuresed with IV Lasix 80 mg IV push every 12 hours. Lovenox dose was adjusted up to 50 mg subcu every 24 hours of the patient's d- dimer was quite elevated at 12.4 and the dose adjustments was done based on her underlying renal failure. On today's evaluation, the patient is a GFR of 12 and the creatinine is at 3.8. The patient is receiving IV Lasix. The ferritin level is 1115. The CRP is at 339. The LDH level is 2094. The patient was admitted on 3.0 with a hemoglobin of 10.2. Platelet counts are low at 95. The liver function tests are nonelevated. She is afebrile for now 12/25/2019, the patient is being seen in follow-up. The patient remains on a BiPAP at a pressure of 10/5 cm of water and FiO2 of 80%. Unable to wean down the FiO2 any further as the patient patient is very borderline. She is very much BiPAP dependent and she desaturates easily once taken off the BiPAP. She underwent a sessions of hemodialysis on 12/23/2019 and 12/24/2019 and on 2 sessions a total of 4 L of fluid was removed. The patient is currently awake and alert. She is responsive. She is following commands. She remains on the same treatment this being offered for Covid 19 pneumonia and the patient remains on a combination of Decadron,Remdesivir and Lovenox. The patient has a chest x-ray remains essentially unchanged and the patient is stable airspace disease and infiltrates bilaterally in the upper and lower lung angel. The inflammatory markers are still quite elevated. Serum ferritin is 1663, the LDH is at 1990, and the CRP at 249. Hepatitis profile is been negative. D-dimer is at 4.2 which is lower compared to yesterday. On 12/26/2019, the patient is doing well. She started on a BiPAP. She is not using accessory muscles of breathing. She is able to communicate or BiPAP machine. BiPAP is running at a pressure of 10/5 with an FiO2 of 80% which I reduced it down to 60% on today's evaluation. The chest x-ray shows some improvement in the bilateral diffuse pulmonary infiltrates and infiltrates are less dense compared to yesterday. The patient underwent hemodialysis yesterday were 2 L of fluid was taken off. She is on Decadron. She is on Lovenox and the patient is also on day 3 of Remdesivir. The patient is having elevated inflammatory markers. LDH is at 1955 which is essentially the same as yesterday. CRP is down to 181. This of the electrodes are all within normal limits. Ferritin level was 1663 from yesterday. The patient's d-dimer is at 4.2. Note that the patient also received a unit of convalescent immunoglobulin. On 12/27/2019, the patient is still comfortable on the BiPAP. She does much better when she lays on her left side. Whenever he turns on her back on the right that she easily desaturates. I was able to wean her down to 50% while being on a BiPAP at a pressure of 10/5 cm of water. We'll try to get around 100% nonrebreather facemask yesterday and this failed. The patient easily desaturated. The patient remains hemodynamics is stable. The patient underwent hemodialysis yesterday. IV fluids at KVO. Chest x-ray shows some improvement in the right pulmonary infiltrates. She remains on antibiotic treatment and she is also on Lovenox. LDH level is at 2015. CRP level is down to 151. She is going to undergo hemodialysis today. No altered mentation pH is resting calm and comfortable in her bed. She remains on Decadron. She remains on Remdesivir Objective - Vital Signs Vital signs: Vital Signs Temp 97.7 F 12/27/19 12:00 Pulse 73 12/27/19 12:00 Resp 20 12/27/19 12:00 BP 149/66 12/27/19 12:00 Pulse Ox 83 L 12/27/19 12:00 Intake & Output 12/26/19 12/27/19 12/27/19 18:59 06:59 18:59 Intake Total 620 370 60 Output Total 20 425 95 Balance 600 -55 -35 Weight 86.8 kg 86.8 kg Intake: IV 120 370 60 0.9 120 120 60 Remdesivir 100mg/250ml 250 Oral 500 Output: Urine 20 425 95 Other: Voiding Method Indwelling Catheter Indwelling Catheter Indwelling Catheter # Bowel Movements 1 - Exam Gen. appearance the patient is a mild degree of respiratory distress currently on a BiPAP at a pressure of 10/5 with an FiO2 of 50 %. She is not using excessive muscle breathing. Head exam was generally normal. There was no scleral icterus or corneal arcus. Mucous membranes were moist. Neck was supple and without jugular venous distension, thyromegaly, or carotid bruits. Carotids were easily palpable bilaterally. There was no adenopathy. Lungs sounds are diminished in the patient's correct in the mid and the lower lung angel bilaterally. Cardiac exam revealed the PMI to be normally situated and sized. The rhythm was regular and no extrasystoles were noted during several minutes of auscultation. The first and second heart sounds were normal and physiologic splitting of the second heart sound was noted. There were no murmurs, rubs, clicks, or gallops. Abdominal exam revealed normal bowel sounds. The abdomen was soft, non-tender, and without masses, organomegaly, or appreciable enlargement of the abdominal aorta. Examination of the extremities revealed easily palpable radial, femoral and pedal pulses. There was no cyanosis, clubbing or edema.. The patient has a functional AV fistula. Examination of the skin revealed no evidence of significant rashes, suspicious appearing nevi or other concerning lesions. Neurologically, the patient is awake and alert and the patient does not have any focal neurological deficit. Cranial nerves are essentially intact. - Labs CBC & Chem 7: 12/26/19 05:20 12/26/19 05:20 Labs: Abnormal Lab Results - Last 24 Hours (Table) 12/27/19 12/27/19 12/27/19 Range/Units 06:35 06:35 10:29 Fibrinogen 517 H (200-500) mg/dL POC Glucose (mg/dL) 120 H (75-99) mg/dL Lactate Dehydrogenase 2015 H (313-618) U/L C-Reactive Protein 151.6 H (<10.0) mg/L Assessment and Plan Plan: 1 acute COVID 19 related pneumonia with secondary hypoxic respiratory failure. The patient currently is on BiPAP for the story support. The patient is on treat ment with a combination of Decadron and Remdesivir and the patient will be given convalescent plasma 1. The patient continues to be quite hypoxic and BiPAP dependent. Is able to wean down the BiPAP and FiO2 of 50%. We'll keep a pressure of 10/5 cm of water. Chest x-ray was noted and there is some limited improvement in the bilateral pulmonary infiltrates. 2 acute BiPAP dependent respiratory failure currently on a BiPAP at a pressure of 10/5 with an FiO2 of 60%. Chest x-ray still showing diffuse but the pulmonary infiltrates. 3 fever secondary to above currently afebrile. 4 acute on chronic kidney disease and the patient is currently receiving hemodialysis through an AV fistula in the left upper extremity. The patient will have hemodialysis today. 4 chronic stage IV kidney disease with a baseline creatinine of 2.6-2.8 and the patient has biopsy-proven diabetic nephropathy with fibrosis and tubular atrophy 6 chronic diastolic heart failure, the patient has an ejection fraction of 50- 55% and the patient has no significant pulmonary hypertension. There is mild to moderate mitral regurgitation. 7 metabolic acidosis secondary to above, improved 8 hypertension 9 hyperlipidemia 10 gout 11 chronic anemia and hemoglobin currently stable, hemoglobin is stable at 9.8 12 thrombocytopenia, could be viral in nature, still low but stable and improving Plan Keep the patient in intensive care unit Continue Decadron 6 mg IV Continue Remdesivir and the patient should be able to tolerate the medication as long as the patient is being dialyzed and this will be coordinated with nephrology and pharmacy , the patient is at day #4 of treatment. the patient has received 1 units of convalescent plasma Chest x-ray from today showing limited improvement Titrate FiO2 to maintain a saturation above 90%. Keep the patient a BiPAP for now the pressure of 10/5 and FiO2 reduced FiO2 down to 60%. Continue the supplements including vitamin C, vitamin D, melatonin and Pepcid dialysis can be done through the AV fistula per nephrology, the patient will be undergoing hemodialysis today. Check inflammatory markers and the values from today have been noted D-dimer was elevated and the Lovenox was adjusted up to 50 mg subcu every 12 hours We will continue to follow make further recommendations based on her progress. The patient's condition is critical at this point in time. I contacted the daughter and updated on the condition. This evaluation was done in 30 minutes Time with Patient: Greater than 30
[2019-12-27] MEDS: ENOXAPARIN 60 MG/0.6 ML SYRINGE SQ SCH (18:44)
[2019-12-27 18:53] LABS: Glucose,Whole Blood 112 mg/dL (75-99)
[2019-12-27] MEDS: REMDESIVIR (EUA) 100 MG in SODIUM CHLORIDE 0.9% 250 ML IVPB SCH (21:29)
[2019-12-27] MEDS: amLODIPine 10 MG TAB PO SCH (21:30)
[2019-12-27 21:55] LABS: Glucose,Whole Blood 113 mg/dL (75-99)
[2019-12-28 08:46] LABS: Glucose,Whole Blood 108 mg/dL (75-99)
[2019-12-28] MEDS: ASPIRIN 81 MG PO SCH (08:51)
[2019-12-28] MEDS: FERROUS SULFATE 325 MG TAB PO SCH (08:51)
[2019-12-28] MEDS: LEVOTHYROXINE 75 MCG TAB PO SCH (08:52)
[2019-12-28] MEDS: ATORVASTATIN 20 MG TAB PO SCH (08:52)
[2019-12-28] MEDS: DOCUSATE 100 MG CAP PO SCH ×2 (08:52→21:32)
[2019-12-28] MEDS: SEVELAMER 800 MG TAB PO SCH ×3 (08:52→20:10)
[2019-12-28] MEDS: METOPROLOL TARTRATE 25 MG TAB PO SCH ×2 (08:52→21:32)
[2019-12-28] MEDS: FUROSEMIDE 10 MG/ML 10 ML VIAL IV SCH ×2 (08:53→21:32)
[2019-12-28] MEDS: DEXAMETHASONE SOD PHOSPHATE 10 MG/ML 1 ML VIAL IV SCH (08:53)
[2019-12-28] MEDS: prednisoLONE ACETATE 1% OPHTH DROPS 5 ML BTL BOTH EYES SCH ×3 (08:54→21:46)
[2019-12-28] MEDS: INSULIN ASPART (NovoLOG) 100 UNIT/ML VIAL SQ SCH ×3 (08:54→21:00)
[2019-12-28 09:20] LABS: Anisocytosis Slight; Basophils # (A) 0.1 k/uL (0-0.2); Basophils % (A) 1 %; Eosinophils % (A) 0 %; HCT 34.7 % (34.0-46.0); HGB 11.2 gm/dL (11.4-16.0); Lymphocytes # (A) 0.4 k/uL (1.0-4.8); Lymphocytes % (A) 5 %; MCH 26.7 pg (25.0-35.0); MCHC 32.3 g/dL (31.0-37.0); MCV 82.8 fL (80.0-100.0); Mean Platelet Volume 11.2; Microcytosis Slight; Monocytes # (A) 0.2 k/uL (0-1.0); Monocytes % (A) 2 %; Neutrophils # (A) 8.3 k/uL (1.3-7.7); Neutrophils % (A) 90 %; Platelet Count 169 k/uL (150-450); RBC 4.19 m/uL (3.80-5.40); RDW 18.8 % (11.5-15.5); WBC 9.2 k/uL (3.8-10.6)
[2019-12-28 09:32] LABS: C Reactive Protein 86.2 mg/L (<10.0)
[2019-12-28 09:44] LABS: D-Dimer 10.95 mg/L FEU (<0.60)
[2019-12-28 11:52] LABS: Glucose,Whole Blood 102 mg/dL (75-99)
[2019-12-28 13:32] LABS: Albumin 2.9 g/dL (3.5-5.0); Calcium 10.1 mg/dL (8.4-10.2); Magnesium 2.2 mg/dL (1.6-2.3); Total Bilirubin 0.7 mg/dL (0.2-1.3); Total Protein 6.4 g/dL (6.3-8.2)
--- NOTE | 2019-12-28 13:33 | P.PN ---
Subjective Patient is seen in follow-up for acute kidney injury on chronic kidney disease. Patient has chronic kidney disease stage IV with baseline creatinine near 2.6- 2.8. Creatinine peaked at 3.8 this admission. She was started on hemodialysis December 22 for worsening renal failure and volume overload. She is also on IV Lasix. She is Covid 19 positive. Continues to require BiPAP. No chest pain or shortness of breath at this time. No changes overnight. Vital signs are stable. General: The patient appeared well nourished and normally developed. Heart: Regular rate and rhythm. Lungs: Breath sounds decreased. Abdomen: Soft, nontender. Extremities: Trace edema. Objective - Vital Signs Vital signs: Vital Signs Temp 97.8 F 12/28/19 04:00 Pulse 71 12/28/19 11:00 Resp 18 12/28/19 11:00 BP 149/94 12/28/19 11:00 Pulse Ox 99 12/28/19 11:00 Intake & Output 12/27/19 12/28/19 12/28/19 18:59 06:59 18:59 Intake Total 120 370 20 Output Total 2405 160 55 Balance -2285 210 -35 Weight 86.8 kg 90.7 kg Intake: IV 120 370 20 0.9 120 120 20 Remdesivir 100mg/250ml 250 Output: Urine 405 160 55 Hemodialysis 2000 Other: Voiding Method Indwelling Catheter Indwelling Catheter # Bowel Movements 1 - Labs CBC & Chem 7: 12/28/19 08:41 12/26/19 05:20 Labs: Abnormal Lab Results - Last 24 Hours (Table) 12/27/19 12/27/19 12/27/19 Range/Units 17:15 17:15 18:51 Hgb (11.4-16.0) gm/dL RDW (11.5-15.5) % Neutrophils # (1.3-7.7) k/uL Lymphocytes # (1.0-4.8) k/uL Fibrinogen (200-500) mg/dL D-Dimer 13.94 H (<0.60) mg/L FEU POC Glucose (mg/dL) 112 H (75-99) mg/dL Ferritin 1551.6 H (10.0-291.0) ng/mL Lactate Dehydrogenase (313-618) U/L C-Reactive Protein (<10.0) mg/L 12/27/19 12/28/19 12/28/19 Range/Units 21:53 08:41 08:41 Hgb 11.2 L (11.4-16.0) gm/dL RDW 18.8 H (11.5-15.5) % Neutrophils # 8.3 H (1.3-7.7) k/uL Lymphocytes # 0.4 L (1.0-4.8) k/uL Fibrinogen 536 H (200-500) mg/dL D-Dimer 10.95 H (<0.60) mg/L FEU POC Glucose (mg/dL) 113 H (75-99) mg/dL Ferritin (10.0-291.0) ng/mL Lactate Dehydrogenase (313-618) U/L C-Reactive Protein (<10.0) mg/L 12/28/19 12/28/19 12/28/19 Range/Units 08:41 08:45 11:51 Hgb (11.4-16.0) gm/dL RDW (11.5-15.5) % Neutrophils # (1.3-7.7) k/uL Lymphocytes # (1.0-4.8) k/uL Fibrinogen (200-500) mg/dL D-Dimer (<0.60) mg/L FEU POC Glucose (mg/dL) 108 H 102 H (75-99) mg/dL Ferritin (10.0-291.0) ng/mL Lactate Dehydrogenase 2127 H (313-618) U/L C-Reactive Protein 86.2 H (<10.0) mg/L Assessment and Plan Plan: Assessment: 1. Acute kidney injury secondary to ATN secondary to cardiorenal syndrome and Covid 19 infection. Creatinine peaked at 3.8 this admission. Started on hemodialysis December 22. Using AV graft. Urine output is about 10 mL an hour (improves temporarily with IV Lasix but then tapers down again). 2. 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 3. Acute hypoxic respiratory failure. 4. Acute on chronic diastolic CHF. 5. Volume overload. Improved with UF and diuresis. 6. Chronic kidney disease mineral bone disease maintained on calcitriol. Phosphorus high at 7.9 - started on Renvela. 7. Metabolic acidosis secondary to acute kidney injury. Resolved. 8. Hypertension with chronic kidney disease. Stable. 9. Covid 19 infection maintained on steroids and s/p Remdesivir. Plan: Maintain IV Lasix. Hemodialysis tomorrow due to holiday schedule. Wean FiO2.
--- NOTE | 2019-12-28 13:39 | P.PN ---
Subjective Progress Note Date: 12/28/19 (Acute Covid 19 pneumonia, near end-stage renal disease with acute kidney injury and stage IV chronic kidney disease secondary to diabetic nephropathy proven by biopsy.) Progress note date of service 12/28/[address] Fritz. Patient seen and evaluated in ICU she is conscious alert oriented. She has been on BiPAP and rebreather and monitoring of oxygen saturation. Her vital sign indicating less temperature 97.8 and prior to that was 98.3. No fever no chills, heart rate 76-71 regular sinus. Respiratory rate ranging between 12 and 19. Blood pressure 149/94 with a mean 112 Her oxygen saturation 99 with the oxygen high flow 15 flow rate. And off oxygen 90%. Laboratories white count 9.2, hemoglobin 11.2 with the underlying anemia of renal disease. With the diabetic nephropathy Fibrinogen 536 and the d-dimer 10.95 both elevated. POC glucose monitor has been stable between Max 113-102. LDH 2127 and C-reactive protein 86.2 Transfusion of plasma today 12/28/2023 critical care. Patient is conscious alert oriented 3 he felt in general some improvement. The head was normocephalic and atraumatic. Neck was supple no JVD no thyromegaly no lymphadenopathy. Chest: On auscultation she had basilar rhonchi's and inspiratory crepitus. With the underlying acute Covid 19 pneumonia, pulmonary edema with the volume overload which has been improved with the dialysis,. With the hemodialysis each time fluid which recognized clinically by his elution of edema of the lower extremities. Heart: Regular sinus rhythm echocardiogram done on 12/23/2019 indicating severe concentric left ventricular hypertrophy with normal ejection fraction 50-55% left atrial moderately dilated, mild to moderate mitral regurgitation, mild tricuspid regurgitation, mild pulmonary hypertension, with the right ventricular systolic pressure by Doppler 33.83 mmHg. She has also mild physiologic pulmonary regurgitation read by Dr. Wong patient access representative. Abdomen: Soft positive bowel sounds no tenderness in the 4 quadrants and she had bowel movement yesterday. Extremities no edema and positive pulses bilateral. Neurologically: Stable general condition was moving 4 extremities and no lateralizing sign and no neuro deficit. Assessment and plan #1 patient had the fourth hemodialysis yesterday. #2 there is clinical improvement and patient's stated that she feel better less shortness of breath. #3 still continuing her current therapy as started by the critical care and pulmonary. #4 diabetes mellitus has been controlled glucose. #5 will continue monitoring the improvement in the ICU, patient did not have today chest x-ray but probably will be tomorrow. Objective - Vital Signs Vital signs: Vital Signs Temp 97.8 F 12/28/19 04:00 Pulse 71 12/28/19 11:00 Resp 18 12/28/19 11:00 BP 149/94 12/28/19 11:00 Pulse Ox 99 12/28/19 11:00 Intake & Output 12/27/19 12/28/19 12/28/19 18:59 06:59 18:59 Intake Total 120 370 20 Output Total 2405 160 55 Balance -2285 210 -35 Weight 86.8 kg 90.7 kg Intake: IV 120 370 20 0.9 120 120 20 Remdesivir 100mg/250ml 250 Output: Urine 405 160 55 Hemodialysis 2000 Other: Voiding Method Indwelling Catheter Indwelling Catheter # Bowel Movements 1 - Labs CBC & Chem 7: 12/28/19 08:41 12/26/19 05:20 Labs: Abnormal Lab Results - Last 24 Hours (Table) 12/27/19 12/27/19 12/27/19 Range/Units 17:15 17:15 18:51 Hgb (11.4-16.0) gm/dL RDW (11.5-15.5) % Neutrophils # (1.3-7.7) k/uL Lymphocytes # (1.0-4.8) k/uL Fibrinogen (200-500) mg/dL D-Dimer 13.94 H (<0.60) mg/L FEU POC Glucose (mg/dL) 112 H (75-99) mg/dL Ferritin 1551.6 H (10.0-291.0) ng/mL Lactate Dehydrogenase (313-618) U/L C-Reactive Protein (<10.0) mg/L 12/27/19 12/28/19 12/28/19 Range/Units 21:53 08:41 08:41 Hgb 11.2 L (11.4-16.0) gm/dL RDW 18.8 H (11.5-15.5) % Neutrophils # 8.3 H (1.3-7.7) k/uL Lymphocytes # 0.4 L (1.0-4.8) k/uL Fibrinogen 536 H (200-500) mg/dL D-Dimer 10.95 H (<0.60) mg/L FEU POC Glucose (mg/dL) 113 H (75-99) mg/dL Ferritin (10.0-291.0) ng/mL Lactate Dehydrogenase (313-618) U/L C-Reactive Protein (<10.0) mg/L 12/28/19 12/28/19 12/28/19 Range/Units 08:41 08:45 11:51 Hgb (11.4-16.0) gm/dL RDW (11.5-15.5) % Neutrophils # (1.3-7.7) k/uL Lymphocytes # (1.0-4.8) k/uL Fibrinogen (200-500) mg/dL D-Dimer (<0.60) mg/L FEU POC Glucose (mg/dL) 108 H 102 H (75-99) mg/dL Ferritin (10.0-291.0) ng/mL Lactate Dehydrogenase 2127 H (313-618) U/L C-Reactive Protein 86.2 H (<10.0) mg/L
--- NOTE | 2019-12-28 15:09 | P.PN ---
Subjective Progress Note Date: 12/28/19 79-year-old -[place] female patient with known history of chronic kidney disease secondary to diabetic nephropathy. The patient was progressively getting worse over the past few days and her shortness of breath started approximately 3 days ago. The patient is known to have chronic stage for kidney disease. The patient came into the hospital because of an acute hypoxic respiratory failure. Chest x-ray showed diffuse but the pulmonary infiltrates. She denied having any fever. No significant cough or sputum production. Her urine output was low. I saw the patient emergency department the patient was already on BiPAP at a pressure of 10/5 with an FiO2 of 100%. I saw the patient on Lasix 80 mg IV every 12 hours. Nephrology was consulted for immediate hemodialysis knowing that the patient has a left upper extremity AV graft which is ready to be used. This was placed few months back. Subsequently, the patient was also checked for carbon 19 and test came back positive. The patient has a white cell count of 11.8. The patient has lymphopenia with a lymphocyte count of 0.9. The coagulation profile was within normal limits. The patient has a BUN of 67 with a creatinine of 3.7. The echocardiogram was done at the bedside and the patient has a mild to moderate mitral regurgitation. Left ventricular ejection fraction is essentially within normal limits. The patient has a GFR which is currently down to 13. Nevertheless, with dialysis, should be able to put the patient on a combination of treatment including Remdesivir. Despite her negative for 44 temperature, the patient started developing temperature the emergency department with a T-max of 101.7. 12/24/2019, seeing the patient for a follow-up. She still in the emergency department as the patient did not find her way up to the ICU yet. Noted the patient diffuse bilateral pulmonary infiltrates with extensive consolidation of the chest x-ray is noted on today's chest x-ray. The patient remains on BiPAP for respiratory support. Currently is in the BiPAP at a pressure of 10/5 with an FiO2 of 80%. No significant respiratory distress at rest pH is able to tolerate the BiPAP without any major difficulties. Noted the patient underwent her first session of hemodialysis yesterday and second session will be done today. The patient remains on Decadron. The patient remains on Remdesivir. The patient is being diuresed with IV Lasix 80 mg IV push every 12 hours. Lovenox dose was adjusted up to 50 mg subcu every 24 hours of the patient's d- dimer was quite elevated at 12.4 and the dose adjustments was done based on her underlying renal failure. On today's evaluation, the patient is a GFR of 12 and the creatinine is at 3.8. The patient is receiving IV Lasix. The ferritin level is 1115. The CRP is at 339. The LDH level is 2094. The patient was admitted on 3.0 with a hemoglobin of 10.2. Platelet counts are low at 95. The liver function tests are nonelevated. She is afebrile for now 12/25/2019, the patient is being seen in follow-up. The patient remains on a BiPAP at a pressure of 10/5 cm of water and FiO2 of 80%. Unable to wean down the FiO2 any further as the patient patient is very borderline. She is very much BiPAP dependent and she desaturates easily once taken off the BiPAP. She underwent a sessions of hemodialysis on 12/23/2019 and 12/24/2019 and on 2 sessions a total of 4 L of fluid was removed. The patient is currently awake and alert. She is responsive. She is following commands. She remains on the same treatment this being offered for Covid 19 pneumonia and the patient remains on a combination of Decadron,Remdesivir and Lovenox. The patient has a chest x-ray remains essentially unchanged and the patient is stable airspace disease and infiltrates bilaterally in the upper and lower lung angel. The inflammatory markers are still quite elevated. Serum ferritin is 1663, the LDH is at 1990, and the CRP at 249. Hepatitis profile is been negative. D-dimer is at 4.2 which is lower compared to yesterday. On 12/26/2019, the patient is doing well. She started on a BiPAP. She is not using accessory muscles of breathing. She is able to communicate or BiPAP machine. BiPAP is running at a pressure of 10/5 with an FiO2 of 80% which I reduced it down to 60% on today's evaluation. The chest x-ray shows some improvement in the bilateral diffuse pulmonary infiltrates and infiltrates are less dense compared to yesterday. The patient underwent hemodialysis yesterday were 2 L of fluid was taken off. She is on Decadron. She is on Lovenox and the patient is also on day 3 of Remdesivir. The patient is having elevated inflammatory markers. LDH is at 1955 which is essentially the same as yesterday. CRP is down to 181. This of the electrodes are all within normal limits. Ferritin level was 1663 from yesterday. The patient's d-dimer is at 4.2. Note that the patient also received a unit of convalescent immunoglobulin. On 12/27/2019, the patient is still comfortable on the BiPAP. She does much better when she lays on her left side. Whenever he turns on her back on the right that she easily desaturates. I was able to wean her down to 50% while being on a BiPAP at a pressure of 10/5 cm of water. We'll try to get around 100% nonrebreather facemask yesterday and this failed. The patient easily desaturated. The patient remains hemodynamics is stable. The patient underwent hemodialysis yesterday. IV fluids at KVO. Chest x-ray shows some improvement in the right pulmonary infiltrates. She remains on antibiotic treatment and she is also on Lovenox. LDH level is at 2015. CRP level is down to 151. She is going to undergo hemodialysis today. No altered mentation pH is resting calm and comfortable in her bed. She remains on Decadron. She remains on Remdesivir 12/28/2019, the patient is still on in the intensive care unit on 100% nonrebreather facemask and this is a 15 L of oxygen by nasal cannula. Note that the patient was on BiPAP earlier and the patient was switched to 100% nonrebreather along with a high flow oxygen and she was able to maintain a saturation of high 80s low 90%. The patient is on day 5 treatment with Remdesivir and Decadron.. The patient also has had a dose of convalescent plasma. The patient underwent hemodialysis yesterday with a total of 2 L of ultrafiltration. She is doing well. Electrodes are all within normal limits. BUN is at 80 with a creatinine of 3.7. The patient also has an LDH of 2127, CRP of 86, AST of 48, ALT of 26, and the patient is afebrile at this point and she is hemodynamically stable. She is tolerating some liquid diet at this point in time. No nausea. No vomiting. No diarrhea. No abdominal pain. No altered mentation. Chest x-ray from yesterday showed diffuse bilateral pulmonary infiltrates which were rather stable, probably somewhat improved compared to the earlier chest x-ray. Objective - Vital Signs Vital signs: Vital Signs Temp 97.8 F 12/28/19 04:00 Pulse 71 12/28/19 11:00 Resp 18 12/28/19 11:00 BP 149/94 12/28/19 11:00 Pulse Ox 99 12/28/19 11:00 Intake & Output 12/27/19 12/28/19 12/28/19 18:59 06:59 18:59 Intake Total 120 370 20 Output Total 2405 160 55 Balance -2285 210 -35 Weight 86.8 kg 90.7 kg Intake: IV 120 370 20 0.9 120 120 20 Remdesivir 100mg/250ml 250 Output: Urine 405 160 55 Hemodialysis 2000 Other: Voiding Method Indwelling Catheter Indwelling Catheter # Bowel Movements 1 - Exam Gen. appearance the patient is a mild degree of respiratory distress currently on a 100% nonrebreather facemask in addition to 15 L of oxygen by nasal cannula. She is comfortable and she is awake and alert and following commands and answering questions appropriately. Head exam was generally normal. There was no scleral icterus or corneal arcus. Mucous membranes were moist. Neck was supple and without jugular venous distension, thyromegaly, or carotid bruits. Carotids were easily palpable bilaterally. There was no adenopathy. Lungs sounds are diminished in the patient's correct in the mid and the lower lung angel bilaterally. Cardiac exam revealed the PMI to be normally situated and sized. The rhythm was regular and no extrasystoles were noted during several minutes of auscultation. The first and second heart sounds were normal and physiologic splitting of the second heart sound was noted. There were no murmurs, rubs, clicks, or gallops. Abdominal exam revealed normal bowel sounds. The abdomen was soft, non-tender, and without masses, organomegaly, or appreciable enlargement of the abdominal aorta. Examination of the extremities revealed easily palpable radial, femoral and pedal pulses. There was no cyanosis, clubbing or edema.. The patient has a functional AV fistula. Examination of the skin revealed no evidence of significant rashes, suspicious appearing nevi or other concerning lesions. Neurologically, the patient is awake and alert and the patient does not have any focal neurological deficit. Cranial nerves are essentially intact. - Labs CBC & Chem 7: 12/28/19 08:41 12/28/19 12:58 Labs: Abnormal Lab Results - Last 24 Hours (Table) 12/27/19 12/27/19 12/27/19 Range/Units 17:15 17:15 18:51 Hgb (11.4-16.0) gm/dL RDW (11.5-15.5) % Neutrophils # (1.3-7.7) k/uL Lymphocytes # (1.0-4.8) k/uL Fibrinogen (200-500) mg/dL D-Dimer 13.94 H (<0.60) mg/L FEU Sodium (137-145) mmol/L Chloride (98-107) mmol/L BUN (7-17) mg/dL Creatinine (0.52-1.04) mg/dL Glucose (74-99) mg/dL POC Glucose (mg/dL) 112 H (75-99) mg/dL Ferritin 1551.6 H (10.0-291.0) ng/mL AST (14-36) U/L Lactate Dehydrogenase (313-618) U/L C-Reactive Protein (<10.0) mg/L Albumin (3.5-5.0) g/dL 12/27/19 12/28/19 12/28/19 Range/Units 21:53 08:41 08:41 Hgb 11.2 L (11.4-16.0) gm/dL RDW 18.8 H (11.5-15.5) % Neutrophils # 8.3 H (1.3-7.7) k/uL Lymphocytes # 0.4 L (1.0-4.8) k/uL Fibrinogen 536 H (200-500) mg/dL D-Dimer 10.95 H (<0.60) mg/L FEU Sodium (137-145) mmol/L Chloride (98-107) mmol/L BUN (7-17) mg/dL Creatinine (0.52-1.04) mg/dL Glucose (74-99) mg/dL POC Glucose (mg/dL) 113 H (75-99) mg/dL Ferritin (10.0-291.0) ng/mL AST (14-36) U/L Lactate Dehydrogenase (313-618) U/L C-Reactive Protein (<10.0) mg/L Albumin (3.5-5.0) g/dL 12/28/19 12/28/19 12/28/19 Range/Units 08:41 08:45 11:51 Hgb (11.4-16.0) gm/dL RDW (11.5-15.5) % Neutrophils # (1.3-7.7) k/uL Lymphocytes # (1.0-4.8) k/uL Fibrinogen (200-500) mg/dL D-Dimer (<0.60) mg/L FEU Sodium (137-145) mmol/L Chloride (98-107) mmol/L BUN (7-17) mg/dL Creatinine (0.52-1.04) mg/dL Glucose (74-99) mg/dL POC Glucose (mg/dL) 108 H 102 H (75-99) mg/dL Ferritin (10.0-291.0) ng/mL AST (14-36) U/L Lactate Dehydrogenase 2127 H (313-618) U/L C-Reactive Protein 86.2 H (<10.0) mg/L Albumin (3.5-5.0) g/dL 12/28/19 Range/Units 12:58 Hgb (11.4-16.0) gm/dL RDW (11.5-15.5) % Neutrophils # (1.3-7.7) k/uL Lymphocytes # (1.0-4.8) k/uL Fibrinogen (200-500) mg/dL D-Dimer (<0.60) mg/L FEU Sodium 134 L (137-145) mmol/L Chloride 96 L (98-107) mmol/L BUN 80 H (7-17) mg/dL Creatinine 3.77 H (0.52-1.04) mg/dL Glucose 127 H (74-99) mg/dL POC Glucose (mg/dL) (75-99) mg/dL Ferritin (10.0-291.0) ng/mL AST 48 H (14-36) U/L Lactate Dehydrogenase (313-618) U/L C-Reactive Protein (<10.0) mg/L Albumin 2.9 L (3.5-5.0) g/dL Assessment and Plan Plan: 1 acute COVID 19 related pneumonia with secondary hypoxic respiratory failure. The patient currently is on BiPAP for the story support. The patient is on treatment with a combination of Decadron and Remdesivir and the patient will be given convalescent plasma 1. The patient was taken off the BiPAP and the patient was switched to 100% on a beta facemask with a high flow oxygen. She is able to maintain a saturation in the high 80s low 90s at this point in time. 2 acute hypoxic respiratory failure secondary to above 3 fever secondary to above currently afebrile. 4 acute on chronic kidney disease and the patient is currently receiving hemodialysis through an AV fistula in the left upper extremity. The patient will have hemodialysis today. Last hemodialysis session was yesterday without a total of 2 L of ultrafiltration 4 chronic stage IV kidney disease with a baseline creatinine of 2.6-2.8 and the patient has biopsy-proven diabetic nephropathy with fibrosis and tubular atrophy 6 chronic diastolic heart failure, the patient has an ejection fraction of 50- 55% and the patient has no significant pulmonary hypertension. There is mild to moderate mitral regurgitation. 7 metabolic acidosis secondary to above, improved 8 hypertension 9 hyperlipidemia 10 gout 11 chronic anemia and hemoglobin currently stable, hemoglobin is stable 12 thrombocytopenia, could be viral in nature, still low but stable and improving Plan Keep the patient in intensive care unit Continue Decadron 6 mg IV Continue Remdesivir and the patient should be able to tolerate the medication as long as the patient is being dialyzed and this will be coordinated with nephr ology and pharmacy , the patient is at day #5 of treatment. the patient has received 1 units of convalescent plasma and I would suggest continuing with a second dose of convalescent plasma Titrate FiO2 to maintain a saturation above 90%. The patient is currently on 100% nonrebreather facemask addition to high flow oxygen Continue the supplements including vitamin C, vitamin D, melatonin and Pepcid dialysis can be done through the AV fistula per nephrology, the patient will be undergoing hemodialysis and last hemodialysis session was yesterday with a total of 2 L of ultrafiltration Check inflammatory markers and the values from today have been noted D-dimer was elevated and the Lovenox was adjusted up to 50 mg subcu every 12 hours, most recent d-dimer is at 10.9 We will continue to follow make further recommendations based on her progress. The patient's condition is critical at this point in time. I contacted the daughter and updated on the condition. This evaluation was done in 30 minutes Time with Patient: Greater than 30
[2019-12-28 19:30] LABS: Glucose,Whole Blood 160 mg/dL (75-99)
[2019-12-28] MEDS: amLODIPine 10 MG TAB PO SCH (21:32)
[2019-12-28] MEDS: ENOXAPARIN 60 MG/0.6 ML SYRINGE SQ SCH (21:32)
[2019-12-28 23:31] LABS: Ferritin 1205.7 ng/mL (10.0-291.0)
[2019-12-29 04:58] LABS: Anisocytosis Slight; Basophils % (A) 1 %; Eosinophils % (A) 1 %; HCT 33.7 % (34.0-46.0); HGB 10.7 gm/dL (11.4-16.0); Lymphocytes # (A) 0.4 k/uL (1.0-4.8); Lymphocytes % (A) 5 %; MCH 26.3 pg (25.0-35.0); MCHC 31.7 g/dL (31.0-37.0); MCV 82.9 fL (80.0-100.0); Mean Platelet Volume 10.2; Microcytosis Slight; Monocytes # (A) 0.2 k/uL (0-1.0); Monocytes % (A) 2 %; Neutrophils # (A) 6.6 k/uL (1.3-7.7); Neutrophils % (A) 90 %; Platelet Count 166 k/uL (150-450); RBC 4.07 m/uL (3.80-5.40); RDW 18.6 % (11.5-15.5); WBC 7.4 k/uL (3.8-10.6)
[2019-12-29 05:16] LABS: D-Dimer 11.63 mg/L FEU (<0.60)
[2019-12-29 05:18] LABS: Albumin 2.9 g/dL (3.5-5.0); Calcium 10.2 mg/dL (8.4-10.2); Potassium 3.7 mmol/L (3.5-5.1); Total Bilirubin 0.7 mg/dL (0.2-1.3); Total Protein 6.3 g/dL (6.3-8.2)
[2019-12-29 05:29] LABS: C Reactive Protein 156.9 mg/L (<10.0)
[2019-12-29 07:14] LABS: Glucose,Whole Blood 104 mg/dL (75-99)
[2019-12-29] MEDS: LEVOTHYROXINE 75 MCG TAB PO SCH (07:15)
[2019-12-29] MEDS: INSULIN ASPART (NovoLOG) 100 UNIT/ML VIAL SQ SCH ×3 (07:18→17:17)
--- NOTE | 2019-12-29 08:06 | XR ---
EXAMINATION TYPE: XR chest 1V portable DATE OF EXAM: 12/29/2019 COMPARISON: 12/27/2019 HISTORY: Shortness of breath TECHNIQUE: Single frontal view of the chest is obtained. FINDINGS: And diffuse pleural-parenchymal changes with bilateral infiltrate and interstitial process noted. Bilateral tiny pleural effusions. Heart enlarged. Atherosclerotic change aorta. Underlying CO PD suspected. IMPRESSION: Stable diffuse pleural-parenchymal changes correlate for diffuse pneumonia. Otherwise co nsider CHF.
[2019-12-29] MEDS: SEVELAMER 800 MG TAB PO SCH ×3 (08:14→16:36)
[2019-12-29] MEDS: ASPIRIN 81 MG PO SCH (10:01)
[2019-12-29] MEDS: DEXAMETHASONE SOD PHOSPHATE 10 MG/ML 1 ML VIAL IV SCH (10:01)
[2019-12-29] MEDS: ATORVASTATIN 20 MG TAB PO SCH (10:01)
[2019-12-29] MEDS: FERROUS SULFATE 325 MG TAB PO SCH (10:01)
[2019-12-29] MEDS: FUROSEMIDE 10 MG/ML 10 ML VIAL IV SCH ×2 (10:02→20:09)
[2019-12-29] MEDS: METOPROLOL TARTRATE 25 MG TAB PO SCH ×2 (10:03→20:13)
[2019-12-29] MEDS: prednisoLONE ACETATE 1% OPHTH DROPS 5 ML BTL BOTH EYES SCH ×3 (10:03→21:30)
[2019-12-29] MEDS: DOCUSATE 100 MG CAP PO SCH ×2 (10:08→20:13)
[2019-12-29 12:01] LABS: Glucose,Whole Blood 117 mg/dL (75-99)
--- NOTE | 2019-12-29 12:38 | P.PN ---
Subjective Patient is seen in follow-up for acute kidney injury on chronic kidney disease. Patient has chronic kidney disease stage IV with baseline creatinine near 2.6- 2.8. Creatinine peaked at 3.8 this admission. She was started on hemodialysis December 22 for worsening renal failure and volume overload. She is also on IV Lasix. Urine output 40-50 mL an hour. She is Covid 19 positive. Currently on 15 L nonrebreather. Oral intake poor. Vital signs are stable. General: The patient appeared well nourished and normally developed. Heart: Regular rate and rhythm. Lungs: Breath sounds decreased. Abdomen: Soft, nontender. Extremities: Trace edema. Objective - Vital Signs Vital signs: Vital Signs Temp 97.7 F 12/29/19 12:00 Pulse 67 12/29/19 12:00 Resp 19 12/29/19 12:00 BP 134/77 12/29/19 12:00 Pulse Ox 92 L 12/29/19 12:00 Intake & Output 12/28/19 12/29/19 12/29/19 18:59 06:59 18:59 Intake Total 20 312 110 Output Total 110 600 240 Balance -90 -288 -130 Weight 89.5 kg Intake: IV 20 110 110 0.9 20 110 110 Blood Product 202 Ffp Pher Conval Covid19 202 Acda 1 Unit [id number] Output: Urine 110 600 240 Other: Voiding Method Indwelling Catheter Indwelling Catheter Indwelling Catheter # Bowel Movements 1 - Labs CBC & Chem 7: 12/29/19 04:40 12/29/19 04:40 Labs: Abnormal Lab Results - Last 24 Hours (Table) 12/28/19 12/28/19 12/28/19 Range/Units 08:41 08:41 12:58 Hgb (11.4-16.0) gm/dL Hct (34.0-46.0) % RDW (11.5-15.5) % Lymphocytes # (1.0-4.8) k/uL Fibrinogen (200-500) mg/dL D-Dimer (<0.60) mg/L FEU Sodium 134 L (137-145) mmol/L Chloride 96 L (98-107) mmol/L BUN 80 H (7-17) mg/dL Creatinine 3.77 H (0.52-1.04) mg/dL Glucose 127 H (74-99) mg/dL POC Glucose (mg/dL) (75-99) mg/dL Ferritin 1205.7 H (10.0-291.0) ng/mL AST 48 H (14-36) U/L Lactate Dehydrogenase (313-618) U/L C-Reactive Protein (<10.0) mg/L Albumin 2.9 L (3.5-5.0) g/dL Procalcitonin 3.80 H (0.02-0.09) ng/mL 12/28/19 12/29/19 12/29/19 Range/Units 19:26 04:40 04:40 Hgb 10.7 L (11.4-16.0) gm/dL Hct 33.7 L (34.0-46.0) % RDW 18.6 H (11.5-15.5) % Lymphocytes # 0.4 L (1.0-4.8) k/uL Fibrinogen (200-500) mg/dL D-Dimer (<0.60) mg/L FEU Sodium (137-145) mmol/L Chloride (98-107) mmol/L BUN (7-17) mg/dL Creatinine (0.52-1.04) mg/dL Glucose (74-99) mg/dL POC Glucose (mg/dL) 160 H (75-99) mg/dL Ferritin (10.0-291.0) ng/mL AST (14-36) U/L Lactate Dehydrogenase (313-618) U/L C-Reactive Protein (<10.0) mg/L Albumin (3.5-5.0) g/dL Procalcitonin 3.12 H (0.02-0.09) ng/mL 12/29/19 12/29/19 12/29/19 Range/Units 04:40 04:40 07:02 Hgb (11.4-16.0) gm/dL Hct (34.0-46.0) % RDW (11.5-15.5) % Lymphocytes # (1.0-4.8) k/uL Fibrinogen 515 H (200-500) mg/dL D-Dimer 11.63 H (<0.60) mg/L FEU Sodium 134 L (137-145) mmol/L Chloride 97 L (98-107) mmol/L BUN 97 H (7-17) mg/dL Creatinine 4.26 H (0.52-1.04) mg/dL Glucose 117 H (74-99) mg/dL POC Glucose (mg/dL) 104 H (75-99) mg/dL Ferritin 902.0 H (10.0-291.0) ng/mL AST 40 H (14-36) U/L Lactate Dehydrogenase 1832 H (313-618) U/L C-Reactive Protein 156.9 H (<10.0) mg/L Albumin 2.9 L (3.5-5.0) g/dL Procalcitonin (0.02-0.09) ng/mL 12/29/19 Range/Units 11:59 Hgb (11.4-16.0) gm/dL Hct (34.0-46.0) % RDW (11.5-15.5) % Lymphocytes # (1.0-4.8) k/uL Fibrinogen (200-500) mg/dL D-Dimer (<0.60) mg/L FEU Sodium (137-145) mmol/L Chloride (98-107) mmol/L BUN (7-17) mg/dL Creatinine (0.52-1.04) mg/dL Glucose (74-99) mg/dL POC Glucose (mg/dL) 117 H (75-99) mg/dL Ferritin (10.0-291.0) ng/mL AST (14-36) U/L Lactate Dehydrogenase (313-618) U/L C-Reactive Protein (<10.0) mg/L Albumin (3.5-5.0) g/dL Procalcitonin (0.02-0.09) ng/mL Assessment and Plan Plan: Assessment: 1. Acute kidney injury secondary to ATN secondary to cardiorenal syndrome and C ovid 19 infection. Creatinine peaked at 3.8 this admission. Started on hemodialysis December 22. Using AV graft. Urine output better - 40-50 mL an hour. 2. 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 3. Acute hypoxic respiratory failure. 4. Acute on chronic diastolic CHF. 5. Volume overload. Improved with UF and diuresis. 6. Chronic kidney disease mineral bone disease maintained on calcitriol and Renvela. 7. Metabolic acidosis secondary to acute kidney injury. Resolved. 8. Hypertension with chronic kidney disease. Stable. 9. Covid 19 infection maintained on steroids; s/p Remdesivir. Plan: Maintain IV Lasix. Hemodialysis today due to holiday schedule. Wean FiO2. Continue to monitor for renal recovery outpatient.
--- NOTE | 2019-12-29 13:12 | P.PN ---
Subjective Progress Note Date: 12/29/19 (Covid-19 pneumonia, pulmonary edema, hemodialysis.) Progress note date of service 12/29/2019. Dictation by Dr. de oliveira, in ICU 254 bed 1 Patient seen in the ICU today evaluated she is on rebreather and she is receiving hemodialysis from her left upper arm with the underlying graft. In regard of the hemodialysis patient getting today her #5 dialysis and so far pulled from previous for dialysis 8 L of water with significant hemodynamic improvement and today plan for more 2 L to be pulled out will be completed 10 L of fluid. Her blood pressure is stable. And her white count 7.4, hemoglobin 10.7 damian tocrit 33.7 with the underlying anemia of renal disease and renal failure. Today fibrinogen level 515 and her d-dimer 11.63 Electrolytes sodium 134, potassium 3.7, chloride 97, carbon dioxide 27, anion gap 10, BUN 97 creatinine 4.26. Diabetes and POC glucose monitored with the CT DG 117. Calcium is normal 10.2 and serum ferritin 902 AST 40 and a LT 26 and alkaline phosphatase 65, LDH 1832, C-reactive protein 156.9, total protein 6.3, albumin 2.9, pro calcitonin 3.12 Physical exam: Patient conscious alert oriented no neuro deficit she is on rebreather during the hemodialysis. Tolerating the hemodialysis well. HEENT: Normocephalic and atraumatic Neck was supple no JVD no thyromegaly no lymphadenopathy trachea midline. Chest is markedly clinical improvement however the chest x-ray is behind and does have diffuse infiltrate with the underlying above and illness and disease however she able to Blease more comfortably. Heart is regular sinus rhythm and the blood pressure is controlled. Abdomen is soft positive bowel sounds no organ enlargement. Extremities: No edema pulses pulses female she had onychomycosis. Neurologically stable and no lateralizing sign. Assessment: Patient progressive with healing and clinical improvement however I'll still chemical not improved well. Underlying treatment for Covid pneumonia, still using BiPAP So far 8 L pulled out fluid with the dialysis with the possible today another 2 L with the improvement of the pulmonary edema however still dealing with Covid pneumonia Plan: We'll continue dialysis per nephrology Dr. Bermudez ordered and monitored by Dr. Godinez critical care and pulmonary as well as cardiology following her Dr. Friedman. Objective - Vital Signs Vital signs: Vital Signs Temp 97.7 F 12/29/19 12:00 Pulse 67 12/29/19 12:00 Resp 19 12/29/19 12:00 BP 134/77 12/29/19 12:00 Pulse Ox 92 L 12/29/19 12:00 Intake & Output 12/28/19 12/29/19 12/29/19 18:59 06:59 18:59 Intake Total 20 312 110 Output Total 110 600 240 Balance -90 -288 -130 Weight 89.5 kg Intake: IV 20 110 110 0.9 20 110 110 Blood Product 202 Ffp Pher Conval Covid19 202 Acda 1 Unit [id number] Output: Urine 110 600 240 Other: Voiding Method Indwelling Catheter Indwelling Catheter Indwelling Catheter # Bowel Movements 1 - Labs CBC & Chem 7: 12/29/19 04:40 12/29/19 04:40 Labs: Abnormal Lab Results - Last 24 Hours (Table) 12/28/19 12/28/19 12/28/19 Range/Units 08:41 08:41 12:58 Hgb (11.4-16.0) gm/dL Hct (34.0-46.0) % RDW (11.5-15.5) % Lymphocytes # (1.0-4.8) k/uL Fibrinogen (200-500) mg/dL D-Dimer (<0.60) mg/L FEU Sodium 134 L (137-145) mmol/L Chloride 96 L (98-107) mmol/L BUN 80 H (7-17) mg/dL Creatinine 3.77 H (0.52-1.04) mg/dL Glucose 127 H (74-99) mg/dL POC Glucose (mg/dL) (75-99) mg/dL Ferritin 1205.7 H (10.0-291.0) ng/mL AST 48 H (14-36) U/L Lactate Dehydrogenase (313-618) U/L C-Reactive Protein (<10.0) mg/L Albumin 2.9 L (3.5-5.0) g/dL Procalcitonin 3.80 H (0.02-0.09) ng/mL 12/28/19 12/29/19 12/29/19 Range/Units 19:26 04:40 04:40 Hgb 10.7 L (11.4-16.0) gm/dL Hct 33.7 L (34.0-46.0) % RDW 18.6 H (11.5-15.5) % Lymphocytes # 0.4 L (1.0-4.8) k/uL Fibrinogen (200-500) mg/dL D-Dimer (<0.60) mg/L FEU Sodium (137-145) mmol/L Chloride (98-107) mmol/L BUN (7-17) mg/dL Creatinine (0.52-1.04) mg/dL Glucose (74-99) mg/dL POC Glucose (mg/dL) 160 H (75-99) mg/dL Ferritin (10.0-291.0) ng/mL AST (14-36) U/L Lactate Dehydrogenase (313-618) U/L C-Reactive Protein (<10.0) mg/L Albumin (3.5-5.0) g/dL Procalcitonin 3.12 H (0.02-0.09) ng/mL 12/29/19 12/29/19 12/29/19 Range/Units 04:40 04:40 07:02 Hgb (11.4-16.0) gm/dL Hct (34.0-46.0) % RDW (11.5-15.5) % Lymphocytes # (1.0-4.8) k/uL Fibrinogen 515 H (200-500) mg/dL D-Dimer 11.63 H (<0.60) mg/L FEU Sodium 134 L (137-145) mmol/L Chloride 97 L (98-107) mmol/L BUN 97 H (7-17) mg/dL Creatinine 4.26 H (0.52-1.04) mg/dL Glucose 117 H (74-99) mg/dL POC Glucose (mg/dL) 104 H (75-99) mg/dL Ferritin 902.0 H (10.0-291.0) ng/mL AST 40 H (14-36) U/L Lactate Dehydrogenase 1832 H (313-618) U/L C-Reactive Protein 156.9 H (<10.0) mg/L Albumin 2.9 L (3.5-5.0) g/dL Procalcitonin (0.02-0.09) ng/mL 12/29/19 Range/Units 11:59 Hgb (11.4-16.0) gm/dL Hct (34.0-46.0) % RDW (11.5-15.5) % Lymphocytes # (1.0-4.8) k/uL Fibrinogen (200-500) mg/dL D-Dimer (<0.60) mg/L FEU Sodium (137-145) mmol/L Chloride (98-107) mmol/L BUN (7-17) mg/dL Creatinine (0.52-1.04) mg/dL Glucose (74-99) mg/dL POC Glucose (mg/dL) 117 H (75-99) mg/dL Ferritin (10.0-291.0) ng/mL AST (14-36) U/L Lactate Dehydrogenase (313-618) U/L C-Reactive Protein (<10.0) mg/L Albumin (3.5-5.0) g/dL Procalcitonin (0.02-0.09) ng/mL
--- NOTE | 2019-12-29 14:26 | P.PN ---
Subjective Progress Note Date: 12/29/19 79-year-old -[place] female patient with known history of chronic kidney disease secondary to diabetic nephropathy. The patient was progressively getting worse over the past few days and her shortness of breath started approximately 3 days ago. The patient is known to have chronic stage for kidney disease. The patient came into the hospital because of an acute hypoxic respiratory failure. Chest x-ray showed diffuse but the pulmonary infiltrates. She denied having any fever. No significant cough or sputum production. Her urine output was low. I saw the patient emergency department the patient was already on BiPAP at a pressure of 10/5 with an FiO2 of 100%. I saw the patient on Lasix 80 mg IV every 12 hours. Nephrology was consulted for immediate hemodialysis knowing that the patient has a left upper extremity AV graft which is ready to be used. This was placed few months back. Subsequently, the patient was also checked for carbon 19 and test came back positive. The patient has a white cell count of 11.8. The patient has lymphopenia with a lymphocyte count of 0.9. The coagulation profile was within normal limits. The patient has a BUN of 67 with a creatinine of 3.7. The echocardiogram was done at the bedside and the patient has a mild to moderate mitral regurgitation. Left ventricular ejection fraction is essentially within normal limits. The patient has a GFR which is currently down to 13. Nevertheless, with dialysis, should be able to put the patient on a combination of treatment including Remdesivir. Despite her negative for 44 temperature, the patient started developing temperature the emergency department with a T-max of 101.7. 12/24/2019, seeing the patient for a follow-up. She still in the emergency department as the patient did not find her way up to the ICU yet. Noted the patient diffuse bilateral pulmonary infiltrates with extensive consolidation of the chest x-ray is noted on today's chest x-ray. The patient remains on BiPAP for respiratory support. Currently is in the BiPAP at a pressure of 10/5 with an FiO2 of 80%. No significant respiratory distress at rest pH is able to tolerate the BiPAP without any major difficulties. Noted the patient underwent her first session of hemodialysis yesterday and second session will be done today. The patient remains on Decadron. The patient remains on Remdesivir. The patient is being diuresed with IV Lasix 80 mg IV push every 12 hours. Lovenox dose was adjusted up to 50 mg subcu every 24 hours of the patient's d- dimer was quite elevated at 12.4 and the dose adjustments was done based on her underlying renal failure. On today's evaluation, the patient is a GFR of 12 and the creatinine is at 3.8. The patient is receiving IV Lasix. The ferritin level is 1115. The CRP is at 339. The LDH level is 2094. The patient was admitted on 3.0 with a hemoglobin of 10.2. Platelet counts are low at 95. The liver function tests are nonelevated. She is afebrile for now 12/25/2019, the patient is being seen in follow-up. The patient remains on a BiPAP at a pressure of 10/5 cm of water and FiO2 of 80%. Unable to wean down the FiO2 any further as the patient patient is very borderline. She is very much BiPAP dependent and she desaturates easily once taken off the BiPAP. She underwent a sessions of hemodialysis on 12/23/2019 and 12/24/2019 and on 2 sessions a total of 4 L of fluid was removed. The patient is currently awake and alert. She is responsive. She is following commands. She remains on the same treatment this being offered for Covid 19 pneumonia and the patient remains on a combination of Decadron,Remdesivir and Lovenox. The patient has a chest x-ray remains essentially unchanged and the patient is stable airspace disease and infiltrates bilaterally in the upper and lower lung angel. The inflammatory markers are still quite elevated. Serum ferritin is 1663, the LDH is at 1990, and the CRP at 249. Hepatitis profile is been negative. D-dimer is at 4.2 which is lower compared to yesterday. On 12/26/2019, the patient is doing well. She started on a BiPAP. She is not using accessory muscles of breathing. She is able to communicate or BiPAP machine. BiPAP is running at a pressure of 10/5 with an FiO2 of 80% which I reduced it down to 60% on today's evaluation. The chest x-ray shows some improvement in the bilateral diffuse pulmonary infiltrates and infiltrates are less dense compared to yesterday. The patient underwent hemodialysis yesterday were 2 L of fluid was taken off. She is on Decadron. She is on Lovenox and the patient is also on day 3 of Remdesivir. The patient is having elevated inflammatory markers. LDH is at 1955 which is essentially the same as yesterday. CRP is down to 181. This of the electrodes are all within normal limits. Ferritin level was 1663 from yesterday. The patient's d-dimer is at 4.2. Note that the patient also received a unit of convalescent immunoglobulin. On 12/27/2019, the patient is still comfortable on the BiPAP. She does much better when she lays on her left side. Whenever he turns on her back on the right that she easily desaturates. I was able to wean her down to 50% while being on a BiPAP at a pressure of 10/5 cm of water. We'll try to get around 100% nonrebreather facemask yesterday and this failed. The patient easily desaturated. The patient remains hemodynamics is stable. The patient underwent hemodialysis yesterday. IV fluids at KVO. Chest x-ray shows some improvement in the right pulmonary infiltrates. She remains on antibiotic treatment and she is also on Lovenox. LDH level is at 2015. CRP level is down to 151. She is going to undergo hemodialysis today. No altered mentation pH is resting calm and comfortable in her bed. She remains on Decadron. She remains on Remdesivir 12/28/2019, the patient is still on in the intensive care unit on 100% nonrebreather facemask and this is a 15 L of oxygen by nasal cannula. Note that the patient was on BiPAP earlier and the patient was switched to 100% nonrebreather along with a high flow oxygen and she was able to maintain a saturation of high 80s low 90%. The patient is on day 5 treatment with Remdesivir and Decadron.. The patient also has had a dose of convalescent plasma. The patient underwent hemodialysis yesterday with a total of 2 L of ultrafiltration. She is doing well. Electrodes are all within normal limits. BUN is at 80 with a creatinine of 3.7. The patient also has an LDH of 2127, CRP of 86, AST of 48, ALT of 26, and the patient is afebrile at this point and she is hemodynamically stable. She is tolerating some liquid diet at this point in time. No nausea. No vomiting. No diarrhea. No abdominal pain. No altered mentation. Chest x-ray from yesterday showed diffuse bilateral pulmonary infiltrates which were rather stable, probably somewhat improved compared to the earlier chest x-ray. 12/29/2019, the patient is awake and alert and she is in her left side which is asleep spot for her in the patient's oxidation improved when she is lying in her left. She is on 100% nonrebreather facemask and she is also on 15 L of oxygen by nasal cannula. Her pulse ox was around 96%. I gave her a trial. I removed the nasal cannula and The patient wouldn't 100% nonrebreather facemask. She is going to require hemodialysis. Her chest x-ray showing still bilateral pulmonary infiltrates consistent with Covid 19 related pneumonia. She has been treated for this infection and she has completed the course of Remdesivir and Decadron is still being utilized at a dose of 6 mg IV push every 24 hours. She has also received a total of 2 doses of convalescent immunoglobulins. She is afebrile. Most recent inflammatory markers from today shows a LDH level of 1832, pro-calcitonin 3.12, CRP of 156.9 and a ferritin level of 902. Note that her LDH has declined, C-reactive protein has increased and the Pronestyl level is gradually improving. Her d-dimer is also elevated at 11.6. Her pro-calcitonin level does not reflect infection and think it's related to her renal failure. Her white cell count is at 7.4. 7 to communicate. No major respiratory decomp ensation over the past 24 hours. In fact the patient is feeling slightly better on today's evaluation. Objective - Vital Signs Vital signs: Vital Signs Temp 97.7 F 12/29/19 12:00 Pulse 70 12/29/19 14:00 Resp 18 12/29/19 14:00 BP 130/64 12/29/19 14:00 Pulse Ox 94 L 12/29/19 14:00 Intake & Output 12/28/19 12/29/19 12/29/19 18:59 06:59 18:59 Intake Total 20 312 110 Output Total 110 600 240 Balance -90 -288 -130 Weight 89.5 kg Intake: IV 20 110 110 0.9 20 110 110 Blood Product 202 Ffp Pher Conval Covid19 202 Acda 1 Unit [id number] Output: Urine 110 600 240 Other: Voiding Method Indwelling Catheter Indwelling Catheter Indwelling Catheter # Bowel Movements 1 - Exam Gen. appearance the patient is a mild degree of respiratory distress currently on a 100% nonrebreather facemask in addition to 15 L of oxygen by nasal cannula. She is comfortable and she is awake and alert and following commands and answering questions appropriately. Head exam was generally normal. There was no scleral icterus or corneal arcus. Mucous membranes were moist. Neck was supple and without jugular venous distension, thyromegaly, or carotid bruits. Carotids were easily palpable bilaterally. There was no adenopathy. Lungs sounds are diminished in the patient's correct in the mid and the lower lung angel bilaterally. Cardiac exam revealed the PMI to be normally situated and sized. The rhythm was regular and no extrasystoles were noted during several minutes of auscultation. The first and second heart sounds were normal and physiologic splitting of the second heart sound was noted. There were no murmurs, rubs, clicks, or gallops. Abdominal exam revealed normal bowel sounds. The abdomen was soft, non-tender, and without masses, organomegaly, or appreciable enlargement of the abdominal aorta. Examination of the extremities revealed easily palpable radial, femoral and pedal pulses. There was no cyanosis, clubbing or edema.. The patient has a functional AV fistula. Examination of the skin revealed no evidence of significant rashes, suspicious appearing nevi or other concerning lesions. Neurologically, the patient is awake and alert and the patient does not have any focal neurological deficit. Cranial nerves are essentially intact. - Labs CBC & Chem 7: 12/29/19 04:40 12/29/19 04:40 Labs: Abnormal Lab Results - Last 24 Hours (Table) 12/28/19 12/28/19 12/28/19 Range/Units 08:41 08:41 19:26 Hgb (11.4-16.0) gm/dL Hct (34.0-46.0) % RDW (11.5-15.5) % Lymphocytes # (1.0-4.8) k/uL Fibrinogen (200-500) mg/dL D-Dimer (<0.60) mg/L FEU Sodium (137-145) mmol/L Chloride (98-107) mmol/L BUN (7-17) mg/dL Creatinine (0.52-1.04) mg/dL Glucose (74-99) mg/dL POC Glucose (mg/dL) 160 H (75-99) mg/dL Ferritin 1205.7 H (10.0-291.0) ng/mL AST (14-36) U/L Lactate Dehydrogenase (313-618) U/L C-Reactive Protein (<10.0) mg/L Albumin (3.5-5.0) g/dL Procalcitonin 3.80 H (0.02-0.09) ng/mL 12/29/19 12/29/19 12/29/19 Range/Units 04:40 04:40 04:40 Hgb 10.7 L (11.4-16.0) gm/dL Hct 33.7 L (34.0-46.0) % RDW 18.6 H (11.5-15.5) % Lymphocytes # 0.4 L (1.0-4.8) k/uL Fibrinogen 515 H (200-500) mg/dL D-Dimer 11.63 H (<0.60) mg/L FEU Sodium (137-145) mmol/L Chloride (98-107) mmol/L BUN (7-17) mg/dL Creatinine (0.52-1.04) mg/dL Glucose (74-99) mg/dL POC Glucose (mg/dL) (75-99) mg/dL Ferritin (10.0-291.0) ng/mL AST (14-36) U/L Lactate Dehydrogenase (313-618) U/L C-Reactive Protein (<10.0) mg/L Albumin (3.5-5.0) g/dL Procalcitonin 3.12 H (0.02-0.09) ng/mL 12/29/19 12/29/19 12/29/19 Range/Units 04:40 07:02 11:59 Hgb (11.4-16.0) gm/dL Hct (34.0-46.0) % RDW (11.5-15.5) % Lymphocytes # (1.0-4.8) k/uL Fibrinogen (200-500) mg/dL D-Dimer (<0.60) mg/L FEU Sodium 134 L (137-145) mmol/L Chloride 97 L (98-107) mmol/L BUN 97 H (7-17) mg/dL Creatinine 4.26 H (0.52-1.04) mg/dL Glucose 117 H (74-99) mg/dL POC Glucose (mg/dL) 104 H 117 H (75-99) mg/dL Ferritin 902.0 H (10.0-291.0) ng/mL AST 40 H (14-36) U/L Lactate Dehydrogenase 1832 H (313-618) U/L C-Reactive Protein 156.9 H (<10.0) mg/L Albumin 2.9 L (3.5-5.0) g/dL Procalcitonin (0.02-0.09) ng/mL Assessment and Plan Plan: 1 acute COVID 19 related pneumonia with secondary hypoxic respiratory failure. The patient currently is on BiPAP for the story support. The patient is on treatment with a combination of Decadron and Remdesivir and she completed treatment, and the patient will be given convalescent plasma 2. The patient was taken off the BiPAP and the patient was switched to 100% nonrebreather facemask with a high flow oxygen. Her chest x-ray still showing diffuse but the pulmonary infiltrates. There has been some interval improvement. I'm going to recommend removing the high flow nasal cannula and utilizing only 100% nonrebreather facemask and monitoring the patient's oxygenation. Note that the patient does best whenever she lays on her left lateral side area. Chest x-ray was reviewed. Inflammatory markers continued to be elevated. 2 acute hypoxic respiratory failure secondary to above 3 fever secondary to above currently afebrile. 4 acute on chronic kidney disease and the patient is currently receiving hemodialysis through an AV fistula in the left upper extremity. The patient will have hemodialysis today. Last hemodialysis session was yesterday without a total of 2 L of ultrafiltration. The patient is going to need hemodialysis today. 4 chronic stage IV kidney disease with a baseline creatinine of 2.6-2.8 and the patient has biopsy-proven diabetic nephropathy with fibrosis and tubular atrophy 6 chronic diastolic heart failure, the patient has an ejection fraction of 50- 55% and the patient has no significant pulmonary hypertension. There is mild to moderate mitral regurgitation. 7 metabolic acidosis secondary to above, improved 8 hypertension 9 hyperlipidemia 10 gout 11 chronic anemia and hemoglobin currently stable, hemoglobin is stable 12 thrombocytopenia, could be viral in nature, still low but stable and improving Plan Keep the patient in intensive care unit Continue Decadron 6 mg IV Completed the course Remdesivir the patient has received 2 units of convalescent plasma and I would suggest continuing with a second dose of convalescent plasma Titrate FiO2 to maintain a saturation above 90%. The patient is currently on 100% nonrebreather facemask and a half a nasal cannula will be removed Continue the supplements including vitamin C, vitamin D, melatonin and Pepcid dialysis can be done through the AV fistula per nephrology, the patient will be undergoing hemodialysis and last hemodialysis session was yesterday with a total of 2 L of ultrafiltration, another session of hemodialysis to be done today Check inflammatory markers a D-dimer was elevated and the Lovenox was adjusted up to 50 mg subcu every 12 hours, most recent d-dimer is at 11.6 We will continue to follow make further recommendations based on her progress. The patient's condition is critical at this point in time. I contacted the daughter and updated on the condition. This evaluation was done in 30 minutes Time with Patient: Greater than 30
[2019-12-29] MEDS: ENOXAPARIN 60 MG/0.6 ML SYRINGE SQ SCH (16:35)
[2019-12-29 17:06] LABS: Glucose,Whole Blood 124 mg/dL (75-99)
[2019-12-29] MEDS: amLODIPine 10 MG TAB PO SCH (20:13)
[2019-12-30 06:53] LABS: Glucose,Whole Blood 105 mg/dL (75-99)
[2019-12-30] MEDS: INSULIN ASPART (NovoLOG) 100 UNIT/ML VIAL SQ SCH ×3 (07:12→19:05)
[2019-12-30] MEDS: LEVOTHYROXINE 75 MCG TAB PO SCH (07:14)
[2019-12-30 08:27] LABS: Albumin 3.1 g/dL (3.5-5.0); Calcium 10.1 mg/dL (8.4-10.2); Magnesium 2.1 mg/dL (1.6-2.3); Potassium 3.8 mmol/L (3.5-5.1); Total Bilirubin 0.8 mg/dL (0.2-1.3); Total Protein 6.8 g/dL (6.3-8.2)
[2019-12-30 08:31] LABS: Anisocytosis Slight; Basophils % (A) 0 %; D-Dimer 13.16 mg/L FEU (<0.60); Eosinophils % (A) 0 %; HCT 35.8 % (34.0-46.0); HGB 11.4 gm/dL (11.4-16.0); Lymphocytes # (A) 0.4 k/uL (1.0-4.8); Lymphocytes % (A) 5 %; MCH 26.6 pg (25.0-35.0); MCHC 31.8 g/dL (31.0-37.0); MCV 83.6 fL (80.0-100.0); Mean Platelet Volume 10.6; Microcytosis Slight; Monocytes # (A) 0.2 k/uL (0-1.0); Monocytes % (A) 3 %; Neutrophils # (A) 8.2 k/uL (1.3-7.7); Neutrophils % (A) 91 %; RBC 4.28 m/uL (3.80-5.40); RDW 18.6 % (11.5-15.5)
[2019-12-30 08:32] LABS: Platelet Count 204 k/uL (150-450)
--- NOTE | 2019-12-30 08:53 | XR ---
EXAMINATION TYPE: XR chest 1V portable DATE OF EXAM: 12/30/2019 COMPARISON: 12/29/2019 INDICATION: Short of breath TECHNIQUE: Single frontal view of the chest is obtained. FINDINGS: The heart size is normal. The pulmonary vasculature is prominent. Diffuse increased lung markings are present bilaterally. Correlate for atypical pneumonia. Findings m ay be worsening over the interval. IMPRESSION: 1. Diffuse bilateral lung infiltrates, correlate for worsening atypical pneumonia
[2019-12-30 09:18] LABS: C Reactive Protein 172.3 mg/L (<10.0)
[2019-12-30] MEDS: prednisoLONE ACETATE 1% OPHTH DROPS 5 ML BTL BOTH EYES SCH ×3 (10:21→21:30)
[2019-12-30] MEDS: FUROSEMIDE 10 MG/ML 10 ML VIAL IV SCH ×2 (10:22→21:07)
[2019-12-30] MEDS: SEVELAMER 800 MG TAB PO SCH ×3 (10:22→19:07)
[2019-12-30] MEDS: DOCUSATE 100 MG CAP PO SCH ×2 (10:22→21:08)
[2019-12-30] MEDS: ASPIRIN 81 MG PO SCH (10:22)
[2019-12-30] MEDS: ATORVASTATIN 20 MG TAB PO SCH (10:22)
[2019-12-30] MEDS: FERROUS SULFATE 325 MG TAB PO SCH (10:22)
[2019-12-30] MEDS: METOPROLOL TARTRATE 25 MG TAB PO SCH ×2 (10:22→21:08)
[2019-12-30] MEDS: DEXAMETHASONE SOD PHOSPHATE 10 MG/ML 1 ML VIAL IV SCH (11:27)
--- NOTE | 2019-12-30 11:51 | P.PN ---
Subjective Patient is seen in follow-up for acute kidney injury on chronic kidney disease. Patient has chronic kidney disease stage IV with baseline creatinine near 2.6- 2.8. Creatinine peaked at 3.8 this admission. She was started on hemodialysis December 22 for worsening renal failure and volume overload. She is also on IV Lasix - urine output 0-10 mL an hour. She is Covid 19 positive. Currently on 15 L high flow cannula and nonrebreather. Oral intake poor. Vital signs are stable. General: The patient appeared well nourished and normally developed. Heart: Regular rate and rhythm. No gross edema. Exam discussed with the nurse. Objective - Vital Signs Vital signs: Vital Signs Temp 98.1 F 12/30/19 09:43 Pulse 80 12/30/19 11:00 Resp 19 12/30/19 11:00 BP 151/64 12/30/19 11:00 Pulse Ox 95 12/30/19 11:00 Intake & Output 12/29/19 12/30/19 12/30/19 18:59 06:59 18:59 Intake Total 290 Output Total 2255 88 45 Balance -196445 Weight 84 kg Intake: IV 190 0.9 190 Oral 100 Output: Urine 255 88 45 Hemodialysis 2000 Other: Voiding Method Indwelling Catheter Indwelling Catheter Indwelling Catheter - Labs CBC & Chem 7: 12/30/19 07:53 12/30/19 07:53 Labs: Abnormal Lab Results - Last 24 Hours (Table) 12/29/19 12/29/19 12/30/19 Range/Units 11:59 17:04 06:52 RDW (11.5-15.5) % Neutrophils # (1.3-7.7) k/uL Lymphocytes # (1.0-4.8) k/uL Fibrinogen (200-500) mg/dL D-Dimer (<0.60) mg/L FEU Sodium (137-145) mmol/L Chloride (98-107) mmol/L BUN (7-17) mg/dL Creatinine (0.52-1.04) mg/dL Glucose (74-99) mg/dL POC Glucose (mg/dL) 117 H 124 H 105 H (75-99) mg/dL AST (14-36) U/L Lactate Dehydrogenase (313-618) U/L C-Reactive Protein (<10.0) mg/L Albumin (3.5-5.0) g/dL 12/30/19 12/30/19 12/30/19 Range/Units 07:53 07:53 07:53 RDW 18.6 H (11.5-15.5) % Neutrophils # 8.2 H (1.3-7.7) k/uL Lymphocytes # 0.4 L (1.0-4.8) k/uL Fibrinogen 540 H (200-500) mg/dL D-Dimer 13.16 H (<0.60) mg/L FEU Sodium 134 L (137-145) mmol/L Chloride 97 L (98-107) mmol/L BUN 71 H (7-17) mg/dL Creatinine 3.79 H (0.52-1.04) mg/dL Glucose 113 H (74-99) mg/dL POC Glucose (mg/dL) (75-99) mg/dL AST 40 H (14-36) U/L Lactate Dehydrogenase 1699 H (313-618) U/L C-Reactive Protein 172.3 H (<10.0) mg/L Albumin 3.1 L (3.5-5.0) g/dL Assessment and Plan Plan: Assessment: 1. Acute kidney injury secondary to ATN secondary to cardiorenal syndrome and Covid 19 infection. Creatinine peaked at 3.8 this admission. Started on hemodialysis December 22. Using AV graft. Oliguric again. 2. 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 3. Acute hypoxic respiratory failure. 4. Acute on chronic diastolic CHF. 5. Volume overload. Improved with UF and diuresis. 6. Chronic kidney disease mineral bone disease maintained on calcitriol and Renvela. 7. Metabolic acidosis secondary to acute kidney injury. Resolved. 8. Hypertension with chronic kidney disease. Stable. 9. Covid 19 infection maintained on steroids; s/p Remdesivir. Plan: I will change Lasix to 80 mg orally twice daily. Ultrafiltration only today due to worsened CXR and hypoxia. Hemodialysis tomorrow. Wean FiO2. Continue to monitor for renal recovery outpatient.
[2019-12-30 11:57] LABS: Glucose,Whole Blood 102 mg/dL (75-99)
--- NOTE | 2019-12-30 14:54 | P.PN ---
Subjective Progress Note Date: 12/30/19 Principal diagnosis: Acute hypoxic respiratory failure secondary to Covid 19 pneumonitis 79-year-old -[place] female patient with known history of chronic kidney disease secondary to diabetic nephropathy. The patient was progressively getting worse over the past few days and her shortness of breath started approximately 3 days ago. The patient is known to have chronic stage for kidney disease. The patient came into the hospital because of an acute hypoxic respiratory failure. Chest x-ray showed diffuse but the pulmonary infiltrates. She denied having any fever. No significant cough or sputum production. Her urine output was low. I saw the patient emergency department the patient was already on BiPAP at a pressure of 10/5 with an FiO2 of 100%. I saw the patient on Lasix 80 mg IV every 12 hours. Nephrology was consulted for immediate hemodialysis knowing that the patient has a left upper extremity AV graft which is ready to be used. This was placed few months back. Subsequently, the patient was also checked for carbon 19 and test came back positive. The patient has a white cell count of 11.8. The patient has lymphopenia with a lymphocyte count of 0.9. The coagulation profile was within normal limits. The patient has a BUN of 67 with a creatinine of 3.7. The echocardiogram was done at the bedside and the patient has a mild to moderate mitral regurgitation. Left ventricular ejection fraction is essentially within normal limits. The patient has a GFR which is currently down to 13. Nevertheless, with dialysis, should be able to put the patient on a combination of treatment including Remdesivir. Despite her negative for 44 temperature, the patient started developing temperature the emergency department with a T-max of 101.7. 12/24/2019, seeing the patient for a follow-up. She still in the emergency department as the patient did not find her way up to the ICU yet. Noted the patient diffuse bilateral pulmonary infiltrates with extensive consolidation of the chest x-ray is noted on today's chest x-ray. The patient remains on BiPAP for respiratory support. Currently is in the BiPAP at a pressure of 10/5 with an FiO2 of 80%. No significant respiratory distress at rest pH is able to tolerate the BiPAP without any major difficulties. Noted the patient underwent her first session of hemodialysis yesterday and second session will be done today. The patient remains on Decadron. The patient remains on Remdesivir. T he patient is being diuresed with IV Lasix 80 mg IV push every 12 hours. Lovenox dose was adjusted up to 50 mg subcu every 24 hours of the patient's d- dimer was quite elevated at 12.4 and the dose adjustments was done based on her underlying renal failure. On today's evaluation, the patient is a GFR of 12 and the creatinine is at 3.8. The patient is receiving IV Lasix. The ferritin level is 1115. The CRP is at 339. The LDH level is 2094. The patient was admitted on 3.0 with a hemoglobin of 10.2. Platelet counts are low at 95. The liver function tests are nonelevated. She is afebrile for now 12/25/2019, the patient is being seen in follow-up. The patient remains on a BiPAP at a pressure of 10/5 cm of water and FiO2 of 80%. Unable to wean down the FiO2 any further as the patient patient is very borderline. She is very much BiPAP dependent and she desaturates easily once taken off the BiPAP. She underwent a sessions of hemodialysis on 12/23/2019 and 12/24/2019 and on 2 sess ions a total of 4 L of fluid was removed. The patient is currently awake and alert. She is responsive. She is following commands. She remains on the same treatment this being offered for Covid 19 pneumonia and the patient remains on a combination of Decadron,Remdesivir and Lovenox. The patient has a chest x-ray remains essentially unchanged and the patient is stable airspace disease and infiltrates bilaterally in the upper and lower lung angel. The inflammatory markers are still quite elevated. Serum ferritin is 1663, the LDH is at 1990, and the CRP at 249. Hepatitis profile is been negative. D-dimer is at 4.2 which is lower compared to yesterday. On 12/26/2019, the patient is doing well. She started on a BiPAP. She is not using accessory muscles of breathing. She is able to communicate or BiPAP machine. BiPAP is running at a pressure of 10/5 with an FiO2 of 80% which I re duced it down to 60% on today's evaluation. The chest x-ray shows some improvement in the bilateral diffuse pulmonary infiltrates and infiltrates are less dense compared to yesterday. The patient underwent hemodialysis yesterday were 2 L of fluid was taken off. She is on Decadron. She is on Lovenox and the patient is also on day 3 of Remdesivir. The patient is having elevated inflammatory markers. LDH is at 1955 which is essentially the same as yesterday. CRP is down to 181. This of the electrodes are all within normal limits. Ferritin level was 1663 from yesterday. The patient's d-dimer is at 4.2. Note that the patient also received a unit of convalescent immunoglobulin. On 12/27/2019, the patient is still comfortable on the BiPAP. She does much better when she lays on her left side. Whenever he turns on her back on the right that she easily desaturates. I was able to wean her down to 50% while being on a BiPAP at a pressure of 10/5 cm of water. We'll try to get around 100% nonrebreather facemask yesterday and this failed. The patient easily desaturated. The patient remains hemodynamics is stable. The patient underwent hemodialysis yesterday. IV fluids at KVO. Chest x-ray shows some improvement in the right pulmonary infiltrates. She remains on antibiotic treatment and she is also on Lovenox. LDH level is at 2015. CRP level is down to 151. She is going to undergo hemodialysis today. No altered mentation pH is resting calm and comfortable in her bed. She remains on Decadron. She remains on Remdesivir 12/28/2019, the patient is still on in the intensive care unit on 100% nonrebreather facemask and this is a 15 L of oxygen by nasal cannula. Note that the patient was on BiPAP earlier and the patient was switched to 100% nonrebreather along with a high flow oxygen and she was able to maintain a saturation of high 80s low 90%. The patient is on day 5 treatment with Remdesivir and Decadron.. The patient also has had a dose of convalescent plasma. The patient underwent hemodialysis yesterday with a total of 2 L of ultrafiltration. She is doing well. Electrodes are all within normal limits. BUN is at 80 with a creatinine of 3.7. The patient also has an LDH of 2127, CRP of 86, AST of 48, ALT of 26, and the patient is afebrile at this point and she is hemodynamically stable. She is tolerating some liquid diet at this point in time. No nausea. No vomiting. No diarrhea. No abdominal pain. No altered mentation. Chest x-ray from yesterday showed diffuse bilateral pulmonary infiltrates which were rather stable, probably somewhat improved compared to the earlier chest x-ray. 12/29/2019, the patient is awake and alert and she is in her left side which is asleep spot for her in the patient's oxidation improved when she is lying in her left. She is on 100% nonrebreather facemask and she is also on 15 L of oxygen by nasal cannula. Her pulse ox was around 96%. I gave her a trial. I removed the nasal cannula and The patient wouldn't 100% nonrebreather facemask. She is going to require hemodialysis. Her chest x-ray showing still bilateral pulmonary infiltrates consistent with Covid 19 related pneumonia. She has been treated for this infection and she has completed the course of Remdesivir and Decadron is still being utilized at a dose of 6 mg IV push every 24 hours. She has also received a total of 2 doses of convalescent immunoglobulins. She is afebrile. Most recent inflammatory markers from today shows a LDH level of 1832, pro-calcitonin 3.12, CRP of 156.9 and a ferritin level of 902. Note that her L DH has declined, C-reactive protein has increased and the Pronestyl level is gradually improving. Her d-dimer is also elevated at 11.6. Her pro-calcitonin level does not reflect infection and think it's related to her renal failure. Her white cell count is at 7.4. 7 to communicate. No major respiratory decompensation over the past 24 hours. In fact the patient is feeling slightly better on today's evaluation. Reevaluated today on 12/30/19, patient remains in the ICU, on 15 L high flow as well as 100% non-rebreather mask, O2 saturation is running between 87-95% at best. Chest x-ray continues to show bilateral interstitial infiltrates, questionable underlying interstitial edema, hence am recommending more dialysis and ultrafiltration to be done. Patient already received remdwsivir, and convalescent plasma. She is also on Decadron and Lovenox. Yesterday she had hemodialysis, and 2 L were removed. Her IV fluid presently at KVO. WBC count is 9 hemoglobin is 11.4. Elective lites are normal renal profile showed a BUN of 71 creatinine of 3.79 LDH is 1699 and C-reactive protein is 172.3 significantly elevated. Chest x-ray as noted above. Objective - Vital Signs Vital signs: Vital Signs Temp 98.1 F 12/30/19 09:43 Pulse 80 12/30/19 11:00 Resp 19 12/30/19 11:00 BP 151/64 12/30/19 11:00 Pulse Ox 95 12/30/19 11:00 Intake & Output 12/29/19 12/30/19 12/30/19 18:59 06:59 18:59 Intake Total 290 Output Total 2255 88 45 Balance -1964 Weight 84 kg Intake: IV 190 0.9 190 Oral 100 Output: Urine 255 88 45 Hemodialysis 1999 Other: Voiding Method Indwelling Catheter Indwelling Catheter Indwelling Catheter - Exam Physical Exam: Revealed 79-year-old female in no distress. On high flow oxygen. Head: Atraumatic, normocephalic. HEENT:[Neck is supple.] [No neck masses.] [No thyromegaly.] [No JVD.] Chest: [Symmetrical expansion, crackles at the bases bilaterally. No rhonchi and no wheezes. Cardiac Exam: [Normal S1 and S2, no S3 gallop, no murmur.] Abdomen: [Soft, nontender, no megaly, no rebound, no guarding, normal bowel sounds.] Extremities: [No clubbing, no edema, no cyanosis.] Neurological Exam: [No focal neurologic deficit.] Alert oriented 3. Psychiatric: Normal mood, affect and normal mental status examination. Skin: No rashes. - Labs CBC & Chem 7: 12/30/19 07:53 12/30/19 07:53 Labs: Abnormal Lab Results - Last 24 Hours (Table) 12/29/19 12/30/19 12/30/19 Range/Units 17:04 06:52 07:53 RDW 18.6 H (11.5-15.5) % Neutrophils # 8.2 H (1.3-7.7) k/uL Lymphocytes # 0.4 L (1.0-4.8) k/uL Fibrinogen (200-500) mg/dL D-Dimer (<0.60) mg/L FEU Sodium (137-145) mmol/L Chloride (98-107) mmol/L BUN (7-17) mg/dL Creatinine (0.52-1.04) mg/dL Glucose (74-99) mg/dL POC Glucose (mg/dL) 124 H 105 H (75-99) mg/dL AST (14-36) U/L Lactate Dehydrogenase (313-618) U/L C-Reactive Protein (<10.0) mg/L Albumin (3.5-5.0) g/dL 12/30/19 12/30/19 12/30/19 Range/Units 07:53 07:53 11:55 RDW (11.5-15.5) % Neutrophils # (1.3-7.7) k/uL Lymphocytes # (1.0-4.8) k/uL Fibrinogen 540 H (200-500) mg/dL D-Dimer 13.16 H (<0.60) mg/L FEU Sodium 134 L (137-145) mmol/L Chloride 97 L (98-107) mmol/L BUN 71 H (7-17) mg/dL Creatinine 3.79 H (0.52-1.04) mg/dL Glucose 113 H (74-99) mg/dL POC Glucose (mg/dL) 102 H (75-99) mg/dL AST 40 H (14-36) U/L Lactate Dehydrogenase 1699 H (313-618) U/L C-Reactive Protein 172.3 H (<10.0) mg/L Albumin 3.1 L (3.5-5.0) g/dL Assessment and Plan Assessment: Impression: Acute hypoxic respiratory failure secondary to covid 19 pneumonitis. Chronic kidney disease stage IV, on hemodialysis. Chronic diastolic congestive heart failure Mild to moderate mitral regurgitation. Benign essential hypertension. Dyslipidemia. History of gout. Chronic anemia. Thrombocytopenia secondary to viral infection. Recommendation: Continue high flow oxygen and titrate accordingly. Continue Decadron. Patient finished the courses of remdesivir and convalescent plasma. Continue vitamin C D and melatonin as well as Pepcid. Continue dialysis and ultrafiltration. Continue Lovenox for elevated d-dimer. Presently on 50 mg subcu every 12 hours. Patient remains critically ill, she will be kept in the ICU with close monitoring. Critical care time is 32 minutes. Time with Patient: Greater than 30
[2019-12-30 15:13] VITALS: BMI 31.8
[2019-12-30 18:30] LABS: Ferritin 889.9 ng/mL (10.0-291.0)
[2019-12-30 18:36] LABS: Glucose,Whole Blood 175 mg/dL (75-99)
[2019-12-30] MEDS: ENOXAPARIN 60 MG/0.6 ML SYRINGE SQ SCH (19:05)
[2019-12-30] MEDS: amLODIPine 10 MG TAB PO SCH (21:08)
[2019-12-30 21:28] LABS: Glucose,Whole Blood 208 mg/dL (75-99)
[2019-12-31 04:33] LABS: Anisocytosis Slight; Basophils # (A) 0.1 k/uL (0-0.2); Basophils % (A) 1 %; Eosinophils % (A) 0 %; HCT 36.7 % (34.0-46.0); HGB 11.6 gm/dL (11.4-16.0); Lymphocytes # (A) 0.4 k/uL (1.0-4.8); Lymphocytes % (A) 5 %; MCHC 31.4 g/dL (31.0-37.0); MCV 82.7 fL (80.0-100.0); Mean Platelet Volume 10.5; Microcytosis Slight; Monocytes # (A) 0.2 k/uL (0-1.0); Monocytes % (A) 3 %; Neutrophils # (A) 6.4 k/uL (1.3-7.7); Neutrophils % (A) 91 %; Platelet Count 241 k/uL (150-450); RBC 4.44 m/uL (3.80-5.40); RDW 18.5 % (11.5-15.5)
[2019-12-31 04:45] LABS: Albumin 3.2 g/dL (3.5-5.0); C Reactive Protein 88.4 mg/L (<10.0); Calcium 10.2 mg/dL (8.4-10.2); Total Bilirubin 0.9 mg/dL (0.2-1.3); Total Protein 7.3 g/dL (6.3-8.2)
[2019-12-31 04:49] LABS: D-Dimer 7.91 mg/L FEU (<0.60)
[2019-12-31 04:55] LABS: Magnesium 2.3 mg/dL (1.6-2.3); Phosphorus 8.8 mg/dL (2.5-4.5); Potassium 5.5 mmol/L (3.5-5.1)
[2019-12-31] MEDS: LEVOTHYROXINE 75 MCG TAB PO SCH (06:24)
[2019-12-31 06:34] LABS: Glucose,Whole Blood 126 mg/dL (75-99)
[2019-12-31] MEDS: INSULIN ASPART (NovoLOG) 100 UNIT/ML VIAL SQ SCH ×4 (06:39→21:49)
[2019-12-31] MEDS: SEVELAMER 800 MG TAB PO SCH ×3 (06:39→18:36)
--- NOTE | 2019-12-31 09:27 | XR ---
EXAMINATION TYPE: XR chest 1V portable DATE OF EXAM: 12/31/2019 Comparison: 12/30/2019 Clinical History: 79-year-old female Shortness of breath Findings: Heart is borderline in size. Atherosclerotic arch calcifications. Normal variant azygos fissure. Bila teral diffuse airspace disease is improving in the upper lungs. Impression: Persistent diffuse bilateral airspace disease but improving now in the upper lungs.
[2019-12-31 10:20] LABS: Ferritin 812.8 ng/mL (10.0-291.0)
[2019-12-31] MEDS: ASPIRIN 81 MG PO SCH (11:09)
[2019-12-31] MEDS: ATORVASTATIN 20 MG TAB PO SCH (11:09)
[2019-12-31] MEDS: METOPROLOL TARTRATE 25 MG TAB PO SCH ×2 (11:10→21:47)
[2019-12-31] MEDS: FERROUS SULFATE 325 MG TAB PO SCH (11:10)
[2019-12-31] MEDS: DOCUSATE 100 MG CAP PO SCH ×2 (11:10→21:47)
[2019-12-31 11:44] LABS: Glucose,Whole Blood 134 mg/dL (75-99)
[2019-12-31] MEDS: prednisoLONE ACETATE 1% OPHTH DROPS 5 ML BTL BOTH EYES SCH ×3 (11:45→22:12)
[2019-12-31] MEDS: FUROSEMIDE 10 MG/ML 10 ML VIAL IV SCH ×2 (11:45→22:10)
[2019-12-31] MEDS: DEXAMETHASONE SOD PHOSPHATE 10 MG/ML 1 ML VIAL IV SCH (11:45)
[2019-12-31 12:07] LABS: ABG Base Excess -2.6 mmol/L; ABG HCO3 23 mmol/L (21-25); ABG Oxygen Saturation 99.4 % (94-97); ABG PCO2 39 mmHg (35-45); ABG PH 7.38 (7.35-7.45); ABG PO2 160 mmHg (83-108); ABG TCO2 24 mmol/L (19-24); Allen Test Performed? Yes
--- NOTE | 2019-12-31 12:21 | P.GSCN ---
History of Present Illness Consult date: 12/31/19 Reason for Consult: Temporary dialysis catheter History of present illness: The patient is an 79-year-old -[place] female with a known history of chronic kidney disease secondary to diabetic nephropathy. The patient presented to the emergency department 12/22/2019 for increased shortness of breath. She had a chest x-ray which showed diffuse pulmonary infiltrates and subsequently was Covid 19 testing which came back positive. She is known to Dr. Lea and had a left upper extremity AV graft placed 10/30/2019 for end-stage renal disease. The patient has been getting hemodialysis via the AV graft however today the hemodialysis nurse was unable to use that access. We have been consulted for a temporary dialysis catheter placement. However the patient's respiratory status is declining, she is currently on BiPAP, and being reassessed for possible intubation. Review of Systems Review of systems unable to be obtained due to decline in respiratory status Past Medical History Past Medical History: Diabetes Mellitus, Dialysis, Hypertension, Renal Disease, Thyroid Disorder Additional Past Medical History / Comment(s): Stage IV chronic kidney disease, hypertension, diabetes mellitus, hypothyroidism, carpal tunnel disease, chronic anemia, gout History of Any Multi-Drug Resistant Organisms: None Reported Past Surgical History: Section, Hysterectomy, Tubal Ligation Additional Past Surgical History / Comment(s): plan for kidney biopsy 01/01/19, right knee surgery Past Anesthesia/Blood Transfusion Reactions: No Reported Reaction Past Psychological History: No Psychological Hx Reported Smoking Status: Never smoker Past Alcohol Use History: Occasional Past Drug Use History: None Reported - Past Family History Mother Family Medical History: Diabetes Mellitus, Hypertension Additional Family Medical History / Comment(s): mother is Father Family Medical History: Chest Pain / Angina, Coronary Artery Disease (CAD), CVA/TIA Additional Family Medical History / Comment(s): father is Brother(s) Family Medical History: Cancer Additional Family Medical History / Comment(s): prostate Sister(s) Family Medical History: Cancer Additional Family Medical History / Comment(s): stomach Medications and Allergies Home Medications Medication Instructions Recorded Confirmed Type Gabapentin [Neurontin] 300 mg PO TID 12/25/15 12/22/19 History Atorvastatin [Lipitor] 20 mg PO DAILY 10/06/16 12/22/19 History amLODIPine [Norvasc] 10 mg PO HS 12/24/18 12/22/19 History Furosemide [Lasix] 20 mg PO DAILY 10/29/19 12/22/19 History Levothyroxine Sodium 150 mcg PO QAM 10/29/19 12/22/19 History hydrALAZINE HCL [Apresoline] 100 mg PO TID 10/29/19 12/22/19 History Atorvastatin Calcium [Lipitor] 20 mg PO DAILY 12/22/19 12/22/19 History predniSONE See Taper PO DIRECTED 12/22/19 12/22/19 History prednisoLONE ACETATE [Pred Forte 1 drop BOTH EYES TID 12/22/19 12/22/19 History 1%] Allergies Allergy/AdvReac Type Severity Reaction Status Date / Time Intravenous Iron Allergy Rash/Hives Uncoded 12/22/19 19:50 Surgical - Exam Vital Signs Temp Pulse Resp BP 98.6 F 152 H 26 H 170/96 12/22/19 17:39 12/22/19 17:39 12/22/19 17:39 12/22/19 17:39 General appearance: The patient is alert, oriented, with BiPAP appears to be in some distress. HET: Head is normocephalic and atraumatic. Neck: Supple without lymphadenopathy. Trachea midline. Heart: S1 S2. Regular rate and rhythm. Lungs: Diminished Abdomen: Soft, nontender, nondistended Extremities: Normal skin color and turgor. Upper extremity AV graft. Neurological: No focal deficits. Strength and sensation are grossly intact. Results - Labs 12/31/19 03:41 12/31/19 03:41 Abnormal Lab Results - Last 24 Hours (Table) 12/30/19 12/30/19 12/30/19 Range/Units 07:53 18:34 21:26 RDW (11.5-15.5) % Lymphocytes # (1.0-4.8) k/uL Fibrinogen (200-500) mg/dL D-Dimer (<0.60) mg/L FEU Sodium (137-145) mmol/L Potassium (3.5-5.1) mmol/L Chloride (98-107) mmol/L BUN (7-17) mg/dL Creatinine (0.52-1.04) mg/dL Glucose (74-99) mg/dL POC Glucose (mg/dL) 175 H 208 H (75-99) mg/dL Phosphorus (2.5-4.5) mg/dL Ferritin 889.9 H (10.0-291.0) ng/mL AST (14-36) U/L Lactate Dehydrogenase (313-618) U/L C-Reactive Protein (<10.0) mg/L Albumin (3.5-5.0) g/dL 12/31/19 12/31/19 12/31/19 Range/Units 03:41 03:41 03:41 RDW 18.5 H (11.5-15.5) % Lymphocytes # 0.4 L (1.0-4.8) k/uL Fibrinogen 583 H (200-500) mg/dL D-Dimer 7.91 H (<0.60) mg/L FEU Sodium 131 L (137-145) mmol/L Potassium 5.5 H (3.5-5.1) mmol/L Chloride 95 L (98-107) mmol/L BUN 88 H (7-17) mg/dL Creatinine 4.39 H (0.52-1.04) mg/dL Glucose 139 H (74-99) mg/dL POC Glucose (mg/dL) (75-99) mg/dL Phosphorus 8.8 H (2.5-4.5) mg/dL Ferritin 812.8 H (10.0-291.0) ng/mL AST 46 H (14-36) U/L Lactate Dehydrogenase 1776 H (313-618) U/L C-Reactive Protein 88.4 H (<10.0) mg/L Albumin 3.2 L (3.5-5.0) g/dL 12/31/19 12/31/19 Range/Units 06:32 11:43 RDW (11.5-15.5) % Lymphocytes # (1.0-4.8) k/uL Fibrinogen (200-500) mg/dL D-Dimer (<0.60) mg/L FEU Sodium (137-145) mmol/L Potassium (3.5-5.1) mmol/L Chloride (98-107) mmol/L BUN (7-17) mg/dL Creatinine (0.52-1.04) mg/dL Glucose (74-99) mg/dL POC Glucose (mg/dL) 126 H 134 H (75-99) mg/dL Phosphorus (2.5-4.5) mg/dL Ferritin (10.0-291.0) ng/mL AST (14-36) U/L Lactate Dehydrogenase (313-618) U/L C-Reactive Protein (<10.0) mg/L Albumin (3.5-5.0) g/dL Diabetes panel 12/31/19 Range/Units 03:41 Sodium 131 L (137-145) mmol/L Potassium 5.5 H (3.5-5.1) mmol/L Chloride 95 L (98-107) mmol/L Carbon Dioxide 24 (22-30) mmol/L BUN 88 H (7-17) mg/dL Creatinine 4.39 H (0.52-1.04) mg/dL Glucose 139 H (74-99) mg/dL Calcium 10.2 (8.4-10.2) mg/dL AST 46 H (14-36) U/L ALT 30 (4-34) U/L Alkaline Phosphatase 74 (38-126) U/L Total Protein 7.3 (6.3-8.2) g/dL Albumin 3.2 L (3.5-5.0) g/dL Calcium panel 12/31/19 Range/Units 03:41 Calcium 10.2 (8.4-10.2) mg/dL Phosphorus 8.8 H (2.5-4.5) mg/dL Albumin 3.2 L (3.5-5.0) g/dL Pituitary panel 12/31/19 Range/Units 03:41 Sodium 131 L (137-145) mmol/L Potassium 5.5 H (3.5-5.1) mmol/L Chloride 95 L (98-107) mmol/L Carbon Dioxide 24 (22-30) mmol/L BUN 88 H (7-17) mg/dL Creatinine 4.39 H (0.52-1.04) mg/dL Glucose 139 H (74-99) mg/dL Calcium 10.2 (8.4-10.2) mg/dL Adrenal panel 12/31/19 Range/Units 03:41 Sodium 131 L (137-145) mmol/L Potassium 5.5 H (3.5-5.1) mmol/L Chloride 95 L (98-107) mmol/L Carbon Dioxide 24 (22-30) mmol/L BUN 88 H (7-17) mg/dL Creatinine 4.39 H (0.52-1.04) mg/dL Glucose 139 H (74-99) mg/dL Calcium 10.2 (8.4-10.2) mg/dL Total Bilirubin 0.9 (0.2-1.3) mg/dL AST 46 H (14-36) U/L ALT 30 (4-34) U/L Alkaline Phosphatase 74 (38-126) U/L Total Protein 7.3 (6.3-8.2) g/dL Albumin 3.2 L (3.5-5.0) g/dL Assessment and Plan Assessment: 1. End-stage renal disease requiring hemodialysis 2. Left AV graft nonfunctioning 3. Hypoxic respiratory failure secondary to coated 19 pneumonitis Plan: If the patient remains stable Dr. Gaines plans on doing a bedside temporary hemodialysis catheter placement later today. Hemodialysis per recommendations from nephrology. Further recommendations to follow. Thank you for this consultation allowing us take part in the plan of care of this patient during her hospital stay The impression and plan of care has been dictated as directed. Dr. Gaines I performed a history and examination of this patient, discussed the same with the dictator. I agree with the dictator's note ,documented as a scribe. Any additional findings or plans will be noted.
--- NOTE | 2019-12-31 12:21 | P.PN ---
Subjective Patient is seen in follow-up for acute kidney injury on chronic kidney disease. Patient has chronic kidney disease stage IV with baseline creatinine near 2.6- 2.8. Creatinine peaked at 3.8 this admission. She was started on hemodialysis December 22 for worsening renal failure and volume overload. Oliguric. Dialysis had to be stopped this morning due to clotting of the AV graft. She is back on BiPAP. Vital signs are stable. General: The patient appeared well nourished and normally developed. Heart: Regular rate and rhythm noted on monitor. No gross edema. Exam discussed with the nurse. Objective - Vital Signs Vital signs: Vital Signs Temp 98.6 F 12/31/19 12:00 Pulse 91 12/31/19 12:00 Resp 20 12/31/19 12:00 BP 157/72 12/31/19 12:00 Pulse Ox 99 12/31/19 12:00 Intake & Output 12/30/19 12/31/19 12/31/19 18:59 06:59 18:59 Intake Total 500 Output Total 1615 195 65 Balance -1615 305 -65 Weight 84 kg 85.2 kg Intake: Oral 500 Output: Urine 115 195 65 Hemodialysis 1500 Other: Voiding Method Indwelling Catheter Indwelling Catheter Indwelling Catheter - Labs CBC & Chem 7: 12/31/19 03:41 12/31/19 03:41 Labs: Abnormal Lab Results - Last 24 Hours (Table) 12/30/19 12/30/19 12/30/19 Range/Units 07:53 18:34 21:26 RDW (11.5-15.5) % Lymphocytes # (1.0-4.8) k/uL Fibrinogen (200-500) mg/dL D-Dimer (<0.60) mg/L FEU ABG pO2 (83-108) mmHg ABG O2 Saturation (94-97) % Sodium (137-145) mmol/L Potassium (3.5-5.1) mmol/L Chloride (98-107) mmol/L BUN (7-17) mg/dL Creatinine (0.52-1.04) mg/dL Glucose (74-99) mg/dL POC Glucose (mg/dL) 175 H 208 H (75-99) mg/dL Phosphorus (2.5-4.5) mg/dL Ferritin 889.9 H (10.0-291.0) ng/mL AST (14-36) U/L Lactate Dehydrogenase (313-618) U/L C-Reactive Protein (<10.0) mg/L Albumin (3.5-5.0) g/dL 12/31/19 12/31/19 12/31/19 Range/Units 03:41 03:41 03:41 RDW 18.5 H (11.5-15.5) % Lymphocytes # 0.4 L (1.0-4.8) k/uL Fibrinogen 583 H (200-500) mg/dL D-Dimer 7.91 H (<0.60) mg/L FEU ABG pO2 (83-108) mmHg ABG O2 Saturation (94-97) % Sodium 131 L (137-145) mmol/L Potassium 5.5 H (3.5-5.1) mmol/L Chloride 95 L (98-107) mmol/L BUN 88 H (7-17) mg/dL Creatinine 4.39 H (0.52-1.04) mg/dL Glucose 139 H (74-99) mg/dL POC Glucose (mg/dL) (75-99) mg/dL Phosphorus 8.8 H (2.5-4.5) mg/dL Ferritin 812.8 H (10.0-291.0) ng/mL AST 46 H (14-36) U/L Lactate Dehydrogenase 1776 H (313-618) U/L C-Reactive Protein 88.4 H (<10.0) mg/L Albumin 3.2 L (3.5-5.0) g/dL 12/31/19 12/31/19 12/31/19 Range/Units 06:32 11:43 12:04 RDW (11.5-15.5) % Lymphocytes # (1.0-4.8) k/uL Fibrinogen (200-500) mg/dL D-Dimer (<0.60) mg/L FEU ABG pO2 160 H (83-108) mmHg ABG O2 Saturation 99.4 H (94-97) % Sodium (137-145) mmol/L Potassium (3.5-5.1) mmol/L Chloride (98-107) mmol/L BUN (7-17) mg/dL Creatinine (0.52-1.04) mg/dL Glucose (74-99) mg/dL POC Glucose (mg/dL) 126 H 134 H (75-99) mg/dL Phosphorus (2.5-4.5) mg/dL Ferritin (10.0-291.0) ng/mL AST (14-36) U/L Lactate Dehydrogenase (313-618) U/L C-Reactive Protein (<10.0) mg/L Albumin (3.5-5.0) g/dL Assessment and Plan Plan: Assessment: 1. Acute kidney injury secondary to ATN secondary to cardiorenal syndrome and Covid 19 infection. Creatinine peaked at 3.8 this admission. Started on hemodialysis December 22. AV graft clotted this morning. Oliguric. 2. 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 3. Acute hypoxic respiratory failure. Back on BiPAP that 100% FiO2. 4. Acute on chronic diastolic CHF. 5. Volume overload. Improved with UF and diuresis. 6. Chronic kidney disease mineral bone disease maintained on calcitriol and Renvela. 7. Metabolic acidosis secondary to acute kidney injury. Resolved. 8. Hypertension with chronic kidney disease. Stable. 9. Covid 19 infection maintained on steroids; s/p Remdesivir. Plan: Maintain oral Lasix. Wean FiO2. Continue to monitor for renal recovery. Vascular surgery notified of the clotted AV graft. Permacath will be placed today. Dialysis will be done this afternoon.
--- NOTE | 2019-12-31 12:31 | P.PN ---
Subjective Progress Note Date: 12/31/19 Principal diagnosis: Acute hypoxic respiratory failure secondary to Covid 19 pneumonitis 79-year-old -[place] female patient with known history of chronic kidney disease secondary to diabetic nephropathy. The patient was progressively getting worse over the past few days and her shortness of breath started approximately 3 days ago. The patient is known to have chronic stage for kidney disease. The patient came into the hospital because of an acute hypoxic respiratory failure. Chest x-ray showed diffuse but the pulmonary infiltrates. She denied having any fever. No significant cough or sputum production. Her urine output was low. I saw the patient emergency department the patient was already on BiPAP at a pressure of 10/5 with an FiO2 of 100%. I saw the patient on Lasix 80 mg IV every 12 hours. Nephrology was consulted for immediate hemodialysis knowing that the patient has a left upper extremity AV graft which is ready to be used. This was placed few months back. Subsequently, the patient was also checked for carbon 19 and test came back positive. The patient has a white cell count of 11.8. The patient has lymphopenia with a lymphocyte count of 0.9. The coagulation profile was within normal limits. The patient has a BUN of 67 with a creatinine of 3.7. The echocardiogram was done at the bedside and the patient has a mild to moderate mitral regurgitation. Left ventricular ejection fraction is essentially within normal limits. The patient has a GFR which is currently down to 13. Nevertheless, with dialysis, should be able to put the patient on a combination of treatment including Remdesivir. Despite her negative for 44 temperature, the patient started developing temperature the emergency department with a T-max of 101.7. 12/24/2019, seeing the patient for a follow-up. She still in the emergency department as the patient did not find her way up to the ICU yet. Noted the patient diffuse bilateral pulmonary infiltrates with extensive consolidation of the chest x-ray is noted on today's chest x-ray. The patient remains on BiPAP for respiratory support. Currently is in the BiPAP at a pressure of 10/5 with an FiO2 of 80%. No significant respiratory distress at rest pH is able to tolerate the BiPAP without any major difficulties. Noted the patient underwent her first session of hemodialysis yesterday and second session will be done today. The patient remains on Decadron. The patient remains on Remdesivir. T he patient is being diuresed with IV Lasix 80 mg IV push every 12 hours. Lovenox dose was adjusted up to 50 mg subcu every 24 hours of the patient's d- dimer was quite elevated at 12.4 and the dose adjustments was done based on her underlying renal failure. On today's evaluation, the patient is a GFR of 12 and the creatinine is at 3.8. The patient is receiving IV Lasix. The ferritin level is 1115. The CRP is at 339. The LDH level is 2094. The patient was admitted on 3.0 with a hemoglobin of 10.2. Platelet counts are low at 95. The liver function tests are nonelevated. She is afebrile for now 12/25/2019, the patient is being seen in follow-up. The patient remains on a BiPAP at a pressure of 10/5 cm of water and FiO2 of 80%. Unable to wean down the FiO2 any further as the patient patient is very borderline. She is very much BiPAP dependent and she desaturates easily once taken off the BiPAP. She underwent a sessions of hemodialysis on 12/23/2019 and 12/24/2019 and on 2 sess ions a total of 4 L of fluid was removed. The patient is currently awake and alert. She is responsive. She is following commands. She remains on the same treatment this being offered for Covid 19 pneumonia and the patient remains on a combination of Decadron,Remdesivir and Lovenox. The patient has a chest x-ray remains essentially unchanged and the patient is stable airspace disease and infiltrates bilaterally in the upper and lower lung angel. The inflammatory markers are still quite elevated. Serum ferritin is 1663, the LDH is at 1990, and the CRP at 249. Hepatitis profile is been negative. D-dimer is at 4.2 which is lower compared to yesterday. On 12/26/2019, the patient is doing well. She started on a BiPAP. She is not using accessory muscles of breathing. She is able to communicate or BiPAP machine. BiPAP is running at a pressure of 10/5 with an FiO2 of 80% which I re duced it down to 60% on today's evaluation. The chest x-ray shows some improvement in the bilateral diffuse pulmonary infiltrates and infiltrates are less dense compared to yesterday. The patient underwent hemodialysis yesterday were 2 L of fluid was taken off. She is on Decadron. She is on Lovenox and the patient is also on day 3 of Remdesivir. The patient is having elevated inflammatory markers. LDH is at 1955 which is essentially the same as yesterday. CRP is down to 181. This of the electrodes are all within normal limits. Ferritin level was 1663 from yesterday. The patient's d-dimer is at 4.2. Note that the patient also received a unit of convalescent immunoglobulin. On 12/27/2019, the patient is still comfortable on the BiPAP. She does much better when she lays on her left side. Whenever he turns on her back on the right that she easily desaturates. I was able to wean her down to 50% while being on a BiPAP at a pressure of 10/5 cm of water. We'll try to get around 100% nonrebreather facemask yesterday and this failed. The patient easily desaturated. The patient remains hemodynamics is stable. The patient underwent hemodialysis yesterday. IV fluids at KVO. Chest x-ray shows some improvement in the right pulmonary infiltrates. She remains on antibiotic treatment and she is also on Lovenox. LDH level is at 2015. CRP level is down to 151. She is going to undergo hemodialysis today. No altered mentation pH is resting calm and comfortable in her bed. She remains on Decadron. She remains on Remdesivir 12/28/2019, the patient is still on in the intensive care unit on 100% nonrebreather facemask and this is a 15 L of oxygen by nasal cannula. Note that the patient was on BiPAP earlier and the patient was switched to 100% nonrebreather along with a high flow oxygen and she was able to maintain a saturation of high 80s low 90%. The patient is on day 5 treatment with Remdesivir and Decadron.. The patient also has had a dose of convalescent plasma. The patient underwent hemodialysis yesterday with a total of 2 L of ultrafiltration. She is doing well. Electrodes are all within normal limits. BUN is at 80 with a creatinine of 3.7. The patient also has an LDH of 2127, CRP of 86, AST of 48, ALT of 26, and the patient is afebrile at this point and she is hemodynamically stable. She is tolerating some liquid diet at this point in time. No nausea. No vomiting. No diarrhea. No abdominal pain. No altered mentation. Chest x-ray from yesterday showed diffuse bilateral pulmonary infiltrates which were rather stable, probably somewhat improved compared to the earlier chest x-ray. 12/29/2019, the patient is awake and alert and she is in her left side which is asleep spot for her in the patient's oxidation improved when she is lying in her left. She is on 100% nonrebreather facemask and she is also on 15 L of oxygen by nasal cannula. Her pulse ox was around 96%. I gave her a trial. I removed the nasal cannula and The patient wouldn't 100% nonrebreather facemask. She is going to require hemodialysis. Her chest x-ray showing still bilateral pulmonary infiltrates consistent with Covid 19 related pneumonia. She has been treated for this infection and she has completed the course of Remdesivir and Decadron is still being utilized at a dose of 6 mg IV push every 24 hours. She has also received a total of 2 doses of convalescent immunoglobulins. She is afebrile. Most recent inflammatory markers from today shows a LDH level of 1832, pro-calcitonin 3.12, CRP of 156.9 and a ferritin level of 902. Note that her L DH has declined, C-reactive protein has increased and the Pronestyl level is gradually improving. Her d-dimer is also elevated at 11.6. Her pro-calcitonin level does not reflect infection and think it's related to her renal failure. Her white cell count is at 7.4. 7 to communicate. No major respiratory decompensation over the past 24 hours. In fact the patient is feeling slightly better on today's evaluation. Reevaluated today on 12/30/19, patient remains in the ICU, on 15 L high flow as well as 100% non-rebreather mask, O2 saturation is running between 87-95% at best. Chest x-ray continues to show bilateral interstitial infiltrates, questionable underlying interstitial edema, hence am recommending more dialysis and ultrafiltration to be done. Patient already received remdwsivir, and convalescent plasma. She is also on Decadron and Lovenox. Yesterday she had hemodialysis, and 2 L were removed. Her IV fluid presently at KVO. WBC count is 9 hemoglobin is 11.4. Elective lites are normal renal profile showed a BUN of 71 creatinine of 3.79 LDH is 1699 and C-reactive protein is 172.3 significantly elevated. Chest x-ray as noted above. Reevaluated today on 12/31/19, agent remains in the ICU, remains on BiPAP, switched yesterday from non-rebreather mask to a BiPAP, and she had follow-up ABG with seems to be much better than expected. PO2 of 160 pCO2 of 39 pH of 7.38 was noted. Remind you patient received hemodialysis earlier today, and I believe most likely the ultrafiltration helped significantly. Patient was earlier today on a nonrebreather mask, and 15 L high flow nasal cannula, and O2 saturation was ranging between 86 up to 94% at best. Patient is not eating much, may have to consider a nasogastric tube and feeding to the patient that way if doesn't eat just for nutritional support. Now that the patient is on BiPAP, she seems to be doing much better, and I will keep her on BiPAP for today. CBC is relatively normal. D-dimer remains elevated at 7.91. Basic metabolic profile is normal however cusp is 5.5, BUN is 88 creatinine 4.39. Objective - Vital Signs Vital signs: Vital Signs Temp 98.6 F 12/31/19 12:00 Pulse 91 12/31/19 12:00 Resp 20 12/31/19 12:00 BP 157/72 12/31/19 12:00 Pulse Ox 99 12/31/19 12:00 Intake & Output 12/30/19 12/31/19 12/31/19 18:59 06:59 18:59 Intake Total 500 Output Total 1615 195 65 Balance -1615 305 -65 Weight 84 kg 85.2 kg Intake: Oral 500 Output: Urine 115 195 65 Hemodialysis 1500 Other: Voiding Method Indwelling Catheter Indwelling Catheter Indwelling Catheter - Exam Physical Exam: Revealed 79-year-old female in mild respiratory distress, placed on BiPAP.. Head: Atraumatic, normocephalic. HEENT:[Neck is supple.] [No neck masses.] [No thyromegaly.] [No JVD.] Chest: [Symmetrical expansion, crackles at the bases bilaterally. No rhonchi and no wheezes. Cardiac Exam: [Normal S1 and S2, no S3 gallop, no murmur.] Abdomen: [Soft, nontender, no megaly, no rebound, no guarding, normal bowel sounds.] Extremities: [No clubbing, no edema, no cyanosis.] Neurological Exam: [No focal neurologic deficit.] Alert oriented 3. Psychiatric: Normal mood, affect and normal mental status examination. Skin: No rashes. - Labs CBC & Chem 7: 12/31/19 03:41 12/31/19 03:41 Labs: Abnormal Lab Results - Last 24 Hours (Table) 12/30/19 12/30/19 12/30/19 Range/Units 07:53 18:34 21:26 RDW (11.5-15.5) % Lymphocytes # (1.0-4.8) k/uL Fibrinogen (200-500) mg/dL D-Dimer (<0.60) mg/L FEU ABG pO2 (83-108) mmHg ABG O2 Saturation (94-97) % Sodium (137-145) mmol/L Potassium (3.5-5.1) mmol/L Chloride (98-107) mmol/L BUN (7-17) mg/dL Creatinine (0.52-1.04) mg/dL Glucose (74-99) mg/dL POC Glucose (mg/dL) 175 H 208 H (75-99) mg/dL Phosphorus (2.5-4.5) mg/dL Ferritin 889.9 H (10.0-291.0) ng/mL AST (14-36) U/L Lactate Dehydrogenase (313-618) U/L C-Reactive Protein (<10.0) mg/L Albumin (3.5-5.0) g/dL 12/31/19 12/31/19 12/31/19 Range/Units 03:41 03:41 03:41 RDW 18.5 H (11.5-15.5) % Lymphocytes # 0.4 L (1.0-4.8) k/uL Fibrinogen 583 H (200-500) mg/dL D-Dimer 7.91 H (<0.60) mg/L FEU ABG pO2 (83-108) mmHg ABG O2 Saturation (94-97) % Sodium 131 L (137-145) mmol/L Potassium 5.5 H (3.5-5.1) mmol/L Chloride 95 L (98-107) mmol/L BUN 88 H (7-17) mg/dL Creatinine 4.39 H (0.52-1.04) mg/dL Glucose 139 H (74-99) mg/dL POC Glucose (mg/dL) (75-99) mg/dL Phosphorus 8.8 H (2.5-4.5) mg/dL Ferritin 812.8 H (10.0-291.0) ng/mL AST 46 H (14-36) U/L Lactate Dehydrogenase 1776 H (313-618) U/L C-Reactive Protein 88.4 H (<10.0) mg/L Albumin 3.2 L (3.5-5.0) g/dL 12/31/19 12/31/19 12/31/19 Range/Units 06:32 11:43 12:04 RDW (11.5-15.5) % Lymphocytes # (1.0-4.8) k/uL Fibrinogen (200-500) mg/dL D-Dimer (<0.60) mg/L FEU ABG pO2 160 H (83-108) mmHg ABG O2 Saturation 99.4 H (94-97) % Sodium (137-145) mmol/L Potassium (3.5-5.1) mmol/L Chloride (98-107) mmol/L BUN (7-17) mg/dL Creatinine (0.52-1.04) mg/dL Glucose (74-99) mg/dL POC Glucose (mg/dL) 126 H 134 H (75-99) mg/dL Phosphorus (2.5-4.5) mg/dL Ferritin (10.0-291.0) ng/mL AST (14-36) U/L Lactate Dehydrogenase (313-618) U/L C-Reactive Protein (<10.0) mg/L Albumin (3.5-5.0) g/dL Assessment and Plan Assessment: Impression: Acute hypoxic respiratory failure secondary to covid 19 pneumonitis. Chronic kidney disease stage IV, on hemodialysis. Chronic diastolic congestive heart failure Mild to moderate mitral regurgitation. Benign essential hypertension. Dyslipidemia. History of gout. Chronic anemia. Thrombocytopenia secondary to viral infection. Recommendation: Continue BiPAP today, patient was transitioned from high flow and nonrebreather mask to BiPAP and her FiO2 was cut down to 40%. Continue Decadron. Patient finished the courses of remdesivir and convalescent plasma. Continue vitamin C D and melatonin as well as Pepcid. Continue dialysis and ultrafiltration. Continue Lovenox for elevated d-dimer. Patient remains critically ill, she will be kept in the ICU with close monitoring. Critical care time is 33 minutes. Time with Patient: Greater than 30
[2019-12-31] MEDS ORDERED: FUROSEMIDE 80 MG TAB PO SCH (16:00)
--- NOTE | 2019-12-31 17:00 | P.PN ---
Subjective Progress Note Date: 12/31/19 (Left arm AV graft nonfunctioning, vascular surgeon consulted. By nephrology) Is a progress note date of service 12/31/2019. Received today a phone call from transportation solutions manager in regard of her feeding and unde rlying malnutrition advised to check with the critical care for the modalities of improved her feeding. Her vital sign temperature 98.8 oral F her heart rate is 85 bpm, respiratory rate 21, blood pressure 138/65 with a mean blood pressure 89 she is on 50% FiO2 on BiPAP with the oxygen saturation 91. Today indicating that her ABG was done at 12 noon today ABGs indicating 7.38 pH, pCO2 39, P02 160, bicarb 23 and total CO2 24, her bases excess -2.6 her oxygen saturation 99.4 and her FiO2 100% patient subsequently her oxygen has been adjusted. Her sodium 131, potassium 5.5, chloride 95, CO2 24, and anion gap 12, her BUN 88, creatinine 4.39, her GFR for -A[place]ij[place] 10. Blood sugar was 139 POC has been also monitored to lost reading 134 and 126. Calcium is 10.2 and phosphate is 8.8 and magnesium 2.3, serum ferritin 812.8, total bilirubin 0.9, AST 46, a LT 30, alk phos 74. LDH 1776, CK 44, C-reactive protein 88.4 total protein 7.3 and albumin 3.2. Physical exam: Conscious alert oriented using BiPAP HEENT: Head was normocephalic atraumatic the pupil is equal reactive oropharynx was negative the natural teeth. Neck was supple no JVD no thyromegaly no lymphadenopathy. Chest: Still patient has diffuse infiltration bilaterally secondary to Covid 19 pneumonia. And history of pulmonary hypertension volume overload with the improvement due to removal with each dialysis 2 L more than 10 L has been removed. Heart: Regular sinus rhythm no chest pain. Abdomen soft positive bowel sounds no tenderness in the 4 quadrants. Extremities no edema and positive pulses. Assessment: #1 patient status still guarded #2 acute hypoxic respiratory failure associated with pneumonia viral Covid 19 infection. #3 still elevated inflammatory markers #4 hyperkalemia and patient probably will be dialyzed tomorrow with the BUN and creatinine still elevated. #5 nutritional support. Plan: Dietitian and the transportation solutions manager monitoring patient, also will obtain pre-albumin with next laboratories. Continue the current protocol by the critical care and the pulmonary. Continue with a hemodialysis. Nephrology. Chronic anemia secondary to renal disease. Continue respiratory support. Objective - Vital Signs Vital signs: Vital Signs Temp 98.8 F 12/31/19 16:00 Pulse 85 12/31/19 16:00 Resp 21 12/31/19 16:00 BP 138/65 12/31/19 16:00 Pulse Ox 91 L 12/31/19 16:00 Intake & Output 12/30/19 12/31/19 12/31/19 18:59 06:59 18:59 Intake Total 500 Output Total 1615 195 368 Balance -1615 305 -368 Weight 84 kg 85.2 kg Intake: Oral 500 Output: Urine 115 195 85 Hemodialysis 1500 283 Other: Voiding Method Indwelling Catheter Indwelling Catheter Indwelling Catheter - Labs CBC & Chem 7: 12/31/19 03:41 12/31/19 03:41 Labs: Abnormal Lab Results - Last 24 Hours (Table) 12/30/19 12/30/19 12/30/19 Range/Units 07:53 18:34 21:26 RDW (11.5-15.5) % Lymphocytes # (1.0-4.8) k/uL Fibrinogen (200-500) mg/dL D-Dimer (<0.60) mg/L FEU ABG pO2 (83-108) mmHg ABG O2 Saturation (94-97) % Sodium (137-145) mmol/L Potassium (3.5-5.1) mmol/L Chloride (98-107) mmol/L BUN (7-17) mg/dL Creatinine (0.52-1.04) mg/dL Glucose (74-99) mg/dL POC Glucose (mg/dL) 175 H 208 H (75-99) mg/dL Phosphorus (2.5-4.5) mg/dL Ferritin 889.9 H (10.0-291.0) ng/mL AST (14-36) U/L Lactate Dehydrogenase (313-618) U/L C-Reactive Protein (<10.0) mg/L Albumin (3.5-5.0) g/dL 12/31/19 12/31/19 12/31/19 Range/Units 03:41 03:41 03:41 RDW 18.5 H (11.5-15.5) % Lymphocytes # 0.4 L (1.0-4.8) k/uL Fibrinogen 583 H (200-500) mg/dL D-Dimer 7.91 H (<0.60) mg/L FEU ABG pO2 (83-108) mmHg ABG O2 Saturation (94-97) % Sodium 131 L (137-145) mmol/L Potassium 5.5 H (3.5-5.1) mmol/L Chloride 95 L (98-107) mmol/L BUN 88 H (7-17) mg/dL Creatinine 4.39 H (0.52-1.04) mg/dL Glucose 139 H (74-99) mg/dL POC Glucose (mg/dL) (75-99) mg/dL Phosphorus 8.8 H (2.5-4.5) mg/dL Ferritin 812.8 H (10.0-291.0) ng/mL AST 46 H (14-36) U/L Lactate Dehydrogenase 1776 H (313-618) U/L C-Reactive Protein 88.4 H (<10.0) mg/L Albumin 3.2 L (3.5-5.0) g/dL 12/31/19 12/31/19 12/31/19 Range/Units 06:32 11:43 12:04 RDW (11.5-15.5) % Lymphocytes # (1.0-4.8) k/uL Fibrinogen (200-500) mg/dL D-Dimer (<0.60) mg/L FEU ABG pO2 160 H (83-108) mmHg ABG O2 Saturation 99.4 H (94-97) % Sodium (137-145) mmol/L Potassium (3.5-5.1) mmol/L Chloride (98-107) mmol/L BUN (7-17) mg/dL Creatinine (0.52-1.04) mg/dL Glucose (74-99) mg/dL POC Glucose (mg/dL) 126 H 134 H (75-99) mg/dL Phosphorus (2.5-4.5) mg/dL Ferritin (10.0-291.0) ng/mL AST (14-36) U/L Lactate Dehydrogenase (313-618) U/L C-Reactive Protein (<10.0) mg/L Albumin (3.5-5.0) g/dL
--- NOTE | 2019-12-31 18:30 | P.PCN ---
Date of Procedure: 12/31/19 Preoperative Diagnosis: end-stage renal disease on hemodialysis, malfunctioning left upper extremity graft Postoperative Diagnosis: same Procedure(s) Performed: right femoral vein hemodialysis catheter placement under ultrasound guidance Anesthesia: local Surgeon: Lex Gaines Estimated Blood Loss (ml): 5 Pathology: none sent Condition: stable Disposition: ICU Indications for Procedure: 79-year-old female with history of incisional disease on hemodialysis via left upper extremity graft who is currently being treated for COVID and has had to be placed on her left side which is the side of her graft has had some issues with her graft during dialysis. She is not clearing and recirculating some blood flow and therefore is not receiving full hemodialysis. She is in need for a temporary catheter. Description of Procedure: After written informed consent was obtained and all risks, benefits, competitions were described the procedure was performed at bedside. Utilizing ultrasound the right femoral vein was visualized and shown to be patent without any thrombus. Utilizing a multipurpose needle the right femoral vein was accessed. Dark nonpulsatile blood flow was visualized. Guidewire was placed and needle was removed. Serial dilation was then performed and a 20 cm straight Mahurkar dialysis catheter was then guided over the guidewire. Guidewire was then removed and ports were assessed for patency. All ports were easily flushed and hep-locked. The catheter was then sutured in place with nylon suture. The area was then cleansed and dressings were placed. Patient tolerated procedure well.
[2019-12-31] MEDS ORDERED: ENOXAPARIN 60 MG/0.6 ML SYRINGE SQ SCH (21:00)
[2019-12-31 21:02] LABS: Glucose,Whole Blood 144 mg/dL (75-99)
[2019-12-31] MEDS ORDERED: ALTEPLASE 2 MG VIAL (CATHFLO) IV STA ×2 (21:32→21:40)
[2019-12-31] MEDS: amLODIPine 10 MG TAB PO SCH (21:47)
--- NOTE | 2020-01-01 07:02 | XR ---
EXAMINATION TYPE: XR chest 1V portable DATE OF EXAM: 01/01/2020 HISTORY: Shortness of breath. COMPARISON: 12/31/2019 TECHNIQUE: Single view of the chest is submitted. FINDINGS: Demonstrated are scattered senescent parenchymal change. Reticulonodular airspace infiltrates identified with interval improvement noted. Continued follow-up is advised. The heart is stable. Hilar and mediastinal structures are within normal limits. Degenerative changes are seen of the dorsal spine. IMPRESSION: 1. Reticulonodular airspace infiltrates identified with interval improvement noted. Continued follow -up is advised.
[2020-01-01 07:05] LABS: Glucose,Whole Blood 148 mg/dL (75-99)
[2020-01-01] MEDS: LEVOTHYROXINE 75 MCG TAB PO SCH (07:05)
[2020-01-01] MEDS: SEVELAMER 800 MG TAB PO SCH ×3 (07:06→18:19)
[2020-01-01] MEDS: INSULIN ASPART (NovoLOG) 100 UNIT/ML VIAL SQ SCH ×3 (07:15→18:19)
[2020-01-01 07:57] LABS: Anisocytosis Slight; Basophils % (A) 0 %; Eosinophils % (A) 0 %; HCT 36.7 % (34.0-46.0); HGB 11.3 gm/dL (11.4-16.0); Hypochromasia Slight; Lymphocytes # (A) 0.6 k/uL (1.0-4.8); Lymphocytes % (A) 5 %; MCHC 30.9 g/dL (31.0-37.0); MCV 84.2 fL (80.0-100.0); Mean Platelet Volume 13.5; Microcytosis Slight; Monocytes # (A) 0.4 k/uL (0-1.0); Monocytes % (A) 3 %; Neutrophils # (A) 10.7 k/uL (1.3-7.7); Neutrophils % (A) 91 %; Platelet Count 274 k/uL (150-450); RBC 4.36 m/uL (3.80-5.40); RDW 18.4 % (11.5-15.5); WBC 11.7 k/uL (3.8-10.6)
[2020-01-01] MEDS: ATORVASTATIN 20 MG TAB PO SCH (08:19)
[2020-01-01] MEDS: DOCUSATE 100 MG CAP PO SCH (08:19)
[2020-01-01] MEDS: ASPIRIN 81 MG PO SCH (08:19)
[2020-01-01] MEDS: FERROUS SULFATE 325 MG TAB PO SCH (08:19)
[2020-01-01] MEDS: DEXAMETHASONE SOD PHOSPHATE 10 MG/ML 1 ML VIAL IV SCH (08:23)
[2020-01-01] MEDS: FUROSEMIDE 10 MG/ML 10 ML VIAL IV SCH (08:23)
[2020-01-01] MEDS: prednisoLONE ACETATE 1% OPHTH DROPS 5 ML BTL BOTH EYES SCH ×2 (08:23→15:05)
[2020-01-01 09:27] LABS: Albumin 2.9 g/dL (3.5-5.0); Calcium 10.8 mg/dL (8.4-10.2); Potassium 5.5 mmol/L (3.5-5.1); Total Bilirubin 0.8 mg/dL (0.2-1.3); Total Protein 6.8 g/dL (6.3-8.2)
[2020-01-01 09:29] LABS: Large Platelets Present
[2020-01-01 09:30] LABS: Poikilocytosis (M) Present
[2020-01-01 09:42] LABS: C Reactive Protein 177.9 mg/L (<10.0)
[2020-01-01] MEDS: METOPROLOL TARTRATE 25 MG TAB PO SCH (10:04)
[2020-01-01 12:02] LABS: Glucose,Whole Blood 149 mg/dL (75-99)
[2020-01-01] MEDS ORDERED: SODIUM BICARB 8.4% 50 ML SYR (1 MEQ/ML) IV STA ×3 (13:25→20:48)
--- NOTE | 2020-01-01 13:26 | P.PN ---
Subjective Patient is seen in follow-up for acute kidney injury on chronic kidney disease. Patient has chronic kidney disease stage IV with baseline creatinine near 2.6- 2.8. She was started on hemodialysis December 22 for worsening renal failure and volume overload. Oliguric. Patient's AV graft clotted yesterday. A groin catheter was placed which also didn't work. TPA was applied and dialysis was reattempted again using the groin catheter this morning and couldn't be done. Patient remains on BiPAP. Vital signs are stable. General: The patient appeared well nourished and normally developed. Heart: Regular rate and rhythm noted on monitor. No gross edema. Exam discussed with the nurse. Objective - Vital Signs Vital signs: Vital Signs Temp 97.6 F 01/01/20 12:00 Pulse 89 01/01/20 12:00 Resp 19 01/01/20 12:00 BP 113/82 01/01/20 12:00 Pulse Ox 96 01/01/20 12:00 Intake & Output 12/31/19 01/01/20 01/01/20 18:59 06:59 18:59 Output Total 423 320 0 Balance -423 -320 0 Weight 84.3 kg 84.3 kg Output: Urine 140 70 0 Hemodialysis 283 250 Other: Voiding Method Indwelling Catheter Indwelling Catheter Indwelling Catheter - Labs CBC & Chem 7: 01/01/20 03:10 01/01/20 08:09 Labs: Abnormal Lab Results - Last 24 Hours (Table) 12/31/19 01/01/20 01/01/20 Range/Units 21:00 03:10 03:10 WBC 11.7 H (3.8-10.6) k/uL Hgb 11.3 L (11.4-16.0) gm/dL MCHC 30.9 L (31.0-37.0) g/dL RDW 18.4 H (11.5-15.5) % Neutrophils # 10.7 H (1.3-7.7) k/uL Lymphocytes # 0.6 L (1.0-4.8) k/uL Sodium (137-145) mmol/L Potassium (3.5-5.1) mmol/L Carbon Dioxide (22-30) mmol/L BUN (7-17) mg/dL Creatinine (0.52-1.04) mg/dL Glucose (74-99) mg/dL POC Glucose (mg/dL) 144 H (75-99) mg/dL Calcium (8.4-10.2) mg/dL AST (14-36) U/L ALT (4-34) U/L Lactate Dehydrogenase (313-618) U/L C-Reactive Protein (<10.0) mg/L Albumin (3.5-5.0) g/dL Prealbumin 11.0 L (18.0-42.0) mg/dL 01/01/20 01/01/20 01/01/20 Range/Units 07:04 08:09 12:01 WBC (3.8-10.6) k/uL Hgb (11.4-16.0) gm/dL MCHC (31.0-37.0) g/dL RDW (11.5-15.5) % Neutrophils # (1.3-7.7) k/uL Lymphocytes # (1.0-4.8) k/uL Sodium 135 L (137-145) mmol/L Potassium 5.5 H (3.5-5.1) mmol/L Carbon Dioxide 19 L (22-30) mmol/L BUN 104 H* (7-17) mg/dL Creatinine 5.59 H (0.52-1.04) mg/dL Glucose 152 H (74-99) mg/dL POC Glucose (mg/dL) 148 H 149 H (75-99) mg/dL Calcium 10.8 H (8.4-10.2) mg/dL AST 366 H (14-36) U/L ALT 228 H (4-34) U/L Lactate Dehydrogenase 2779 H (313-618) U/L C-Reactive Protein 177.9 H (<10.0) mg/L Albumin 2.9 L (3.5-5.0) g/dL Prealbumin (18.0-42.0) mg/dL Assessment and Plan Plan: Assessment: 1. Acute kidney injury secondary to ATN secondary to cardiorenal syndrome and Covid 19 infection. Started on hemodialysis December 22. Oliguric. 2. 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 3. Acute hypoxic respiratory failure. Back on BiPAP that 80% FiO2. 4. Acute on chronic diastolic CHF. 5. Volume overload. Improved with UF and diuresis. 6. Chronic kidney disease mineral bone disease maintained on calcitriol and Renvela. 7. Metabolic acidosis secondary to acute kidney injury. 8. Hypertension with chronic kidney disease. Stable. 9. Covid 19 infection s/p steroids and remdesivir. 10. Hypercalcemia. Unclear cause. She is not on any calcium or vitamin D supplements. Plan: Maintain IV Lasix. Wean FiO2. No evidence of renal recovery at this time. Will monitor outpatient. Dialysis will be attempted again using the groin catheter this afternoon. If catheter doesn't work, she will need a permacath placed. Check PTH, PTHrp and vitamin D levels. I will also check an Oneil level and serum and urine immunofixation. Repeat electrolytes in the morning, including calcium and albumin. I will give 2 doses of calcitonin today. I will also use a low calcium bath with dialysis today.
[2020-01-01] MEDS ORDERED: CALCITONIN INJ 200 UNIT/ML (MDV) VIAL SQ SCH (13:45)
--- NOTE | 2020-01-01 14:17 | P.PN ---
Subjective Progress Note Date: 01/01/20 (Right femoral catheter for dialysis placed by vascular surgeon. Hopefully dialysis today) This is a progress note date of service 01/01/[address] Fritz. Vital sign his temperature 97.6 F axillary her pulse rate is 89 bpm regular normal and respiratory rate ranging between 19 and plan per minute and was just shortness of breath and cough and she using the BiPAP her blood pressure 117/76 with a mean 83 next is on BiPAP her pulse ox 96 on 80% FiO2. Laboratories: Sodium 135 potassium 5.5, chloride 11, carbon dioxide 19, anion gap is 15, BUN 104 creatinine 5.59 with the EGFR for -[place] 8. POC glucose ranging between 148-158 149. Next her calcium 10.8 AST 366 PLT 228, alk phos 71 and LDH 2779, her CK is normal 34 but the C-reactive protein 177.9. Total protein 6.8, albumin 2.9, pre-albumin is 11. On exam: Patient seen and evaluated in the ICU. She is currently on BiPAP with comfortable breathing and sleeping. HEENT negative Neck was supple no lymphadenopathy. Chest is inspiratory crackles with the diffuse infiltrate and Covid pneumonia viral19. Heart: Regular sinus rhythm. Abdomen soft nontender positive bowel sounds. Extremities she had a right femoral catheter for dialysis placed by the vascular surgeon due to clogging of the AV shunt in the left arm for dialysis. Neurologically: Stable Assessment: Patient with abnormal BUN and creatinine with the approaching the end stage renal disease and the plan for dialysis today. She had abnormal laboratory with the elevated liver enzyme and elevated calcium with the inflammatory marker has been elevated with prealbumin is decreased with the normal range 18. Chest x-ray indicating reticula nebular airspace infiltrate with interval improvement, heart is stable, hilar and mediastinal structures are within normal limit, degenerative dorsal spine, Plan continued current medication and with the start of the white count to be elevated we'll be checking with the critical care in regard of the use of azithromycin. She finished Remdisivir IV and she is on dexamethasone for 10 days total., With the probability increase in white count could be due to the steroid. Currently dialysis will be planned for today patient followed by nephrology, pulmonary critical care, and cardiology. We'll continue the current protocol. Prognosis still guarded Objective - Vital Signs Vital signs: Vital Signs Temp 97.6 F 01/01/20 12:00 Pulse 89 01/01/20 13:00 Resp 10 L 01/01/20 13:00 BP 117/67 01/01/20 13:00 Pulse Ox 95 01/01/20 13:00 Intake & Output 12/31/19 01/01/20 01/01/20 18:59 06:59 18:59 Output Total 423 320 0 Balance -423 -320 0 Weight 84.3 kg 84.3 kg Output: Urine 140 70 0 Hemodialysis 283 250 Other: Voiding Method Indwelling Catheter Indwelling Catheter Indwelling Catheter - Labs CBC & Chem 7: 01/01/20 03:10 01/01/20 08:09 Labs: Abnormal Lab Results - Last 24 Hours (Table) 12/31/19 01/01/20 01/01/20 Range/Units 21:00 03:10 03:10 WBC 11.7 H (3.8-10.6) k/uL Hgb 11.3 L (11.4-16.0) gm/dL MCHC 30.9 L (31.0-37.0) g/dL RDW 18.4 H (11.5-15.5) % Neutrophils # 10.7 H (1.3-7.7) k/uL Lymphocytes # 0.6 L (1.0-4.8) k/uL Sodium (137-145) mmol/L Potassium (3.5-5.1) mmol/L Carbon Dioxide (22-30) mmol/L BUN (7-17) mg/dL Creatinine (0.52-1.04) mg/dL Glucose (74-99) mg/dL POC Glucose (mg/dL) 144 H (75-99) mg/dL Calcium (8.4-10.2) mg/dL AST (14-36) U/L ALT (4-34) U/L Lactate Dehydrogenase (313-618) U/L C-Reactive Protein (<10.0) mg/L Albumin (3.5-5.0) g/dL Prealbumin 11.0 L (18.0-42.0) mg/dL 01/01/20 01/01/20 01/01/20 Range/Units 07:04 08:09 12:01 WBC (3.8-10.6) k/uL Hgb (11.4-16.0) gm/dL MCHC (31.0-37.0) g/dL RDW (11.5-15.5) % Neutrophils # (1.3-7.7) k/uL Lymphocytes # (1.0-4.8) k/uL Sodium 135 L (137-145) mmol/L Potassium 5.5 H (3.5-5.1) mmol/L Carbon Dioxide 19 L (22-30) mmol/L BUN 104 H* (7-17) mg/dL Creatinine 5.59 H (0.52-1.04) mg/dL Glucose 152 H (74-99) mg/dL POC Glucose (mg/dL) 148 H 149 H (75-99) mg/dL Calcium 10.8 H (8.4-10.2) mg/dL AST 366 H (14-36) U/L ALT 228 H (4-34) U/L Lactate Dehydrogenase 2779 H (313-618) U/L C-Reactive Protein 177.9 H (<10.0) mg/L Albumin 2.9 L (3.5-5.0) g/dL Prealbumin (18.0-42.0) mg/dL
--- NOTE | 2020-01-01 14:53 | P.PN ---
Subjective Progress Note Date: 01/01/20 Principal diagnosis: Acute hypoxic respiratory failure secondary to Covid 19 pneumonitis 79-year-old -[place] female patient with known history of chronic kidney disease secondary to diabetic nephropathy. The patient was progressively getting worse over the past few days and her shortness of breath started approximately 3 days ago. The patient is known to have chronic stage for kidney disease. The patient came into the hospital because of an acute hypoxic respiratory failure. Chest x-ray showed diffuse but the pulmonary infiltrates. She denied having any fever. No significant cough or sputum production. Her urine output was low. I saw the patient emergency department the patient was already on BiPAP at a pressure of 10/5 with an FiO2 of 100%. I saw the patient on Lasix 80 mg IV every 12 hours. Nephrology was consulted for immediate hemodialysis knowing that the patient has a left upper extremity AV graft which is ready to be used. This was placed few months back. Subsequently, the patient was also checked for carbon 19 and test came back positive. The patient has a white cell count of 11.8. The patient has lymphopenia with a lymphocyte count of 0.9. The coagulation profile was within normal limits. The patient has a BUN of 67 with a creatinine of 3.7. The echocardiogram was done at the bedside and the patient has a mild to moderate mitral regurgitation. Left ventricular ejection fraction is essentially within normal limits. The patient has a GFR which is currently down to 13. Nevertheless, with dialysis, should be able to put the patient on a combination of treatment including Remdesivir. Despite her negative for 44 temperature, the patient started developing temperature the emergency department with a T-max of 101.7. 12/24/2019, seeing the patient for a follow-up. She still in the emergency department as the patient did not find her way up to the ICU yet. Noted the patient diffuse bilateral pulmonary infiltrates with extensive consolidation of the chest x-ray is noted on today's chest x-ray. The patient remains on BiPAP for respiratory support. Currently is in the BiPAP at a pressure of 10/5 with an FiO2 of 80%. No significant respiratory distress at rest pH is able to tolerate the BiPAP without any major difficulties. Noted the patient underwent her first session of hemodialysis yesterday and second session will be done today. The patient remains on Decadron. The patient remains on Remdesivir. T he patient is being diuresed with IV Lasix 80 mg IV push every 12 hours. Lovenox dose was adjusted up to 50 mg subcu every 24 hours of the patient's d- dimer was quite elevated at 12.4 and the dose adjustments was done based on her underlying renal failure. On today's evaluation, the patient is a GFR of 12 and the creatinine is at 3.8. The patient is receiving IV Lasix. The ferritin level is 1115. The CRP is at 339. The LDH level is 2094. The patient was admitted on 3.0 with a hemoglobin of 10.2. Platelet counts are low at 95. The liver function tests are nonelevated. She is afebrile for now 12/25/2019, the patient is being seen in follow-up. The patient remains on a BiPAP at a pressure of 10/5 cm of water and FiO2 of 80%. Unable to wean down the FiO2 any further as the patient patient is very borderline. She is very much BiPAP dependent and she desaturates easily once taken off the BiPAP. She underwent a sessions of hemodialysis on 12/23/2019 and 12/24/2019 and on 2 sess ions a total of 4 L of fluid was removed. The patient is currently awake and alert. She is responsive. She is following commands. She remains on the same treatment this being offered for Covid 19 pneumonia and the patient remains on a combination of Decadron,Remdesivir and Lovenox. The patient has a chest x-ray remains essentially unchanged and the patient is stable airspace disease and infiltrates bilaterally in the upper and lower lung angel. The inflammatory markers are still quite elevated. Serum ferritin is 1663, the LDH is at 1990, and the CRP at 249. Hepatitis profile is been negative. D-dimer is at 4.2 which is lower compared to yesterday. On 12/26/2019, the patient is doing well. She started on a BiPAP. She is not using accessory muscles of breathing. She is able to communicate or BiPAP machine. BiPAP is running at a pressure of 10/5 with an FiO2 of 80% which I re duced it down to 60% on today's evaluation. The chest x-ray shows some improvement in the bilateral diffuse pulmonary infiltrates and infiltrates are less dense compared to yesterday. The patient underwent hemodialysis yesterday were 2 L of fluid was taken off. She is on Decadron. She is on Lovenox and the patient is also on day 3 of Remdesivir. The patient is having elevated inflammatory markers. LDH is at 1955 which is essentially the same as yesterday. CRP is down to 181. This of the electrodes are all within normal limits. Ferritin level was 1663 from yesterday. The patient's d-dimer is at 4.2. Note that the patient also received a unit of convalescent immunoglobulin. On 12/27/2019, the patient is still comfortable on the BiPAP. She does much better when she lays on her left side. Whenever he turns on her back on the right that she easily desaturates. I was able to wean her down to 50% while being on a BiPAP at a pressure of 10/5 cm of water. We'll try to get around 100% nonrebreather facemask yesterday and this failed. The patient easily desaturated. The patient remains hemodynamics is stable. The patient underwent hemodialysis yesterday. IV fluids at KVO. Chest x-ray shows some improvement in the right pulmonary infiltrates. She remains on antibiotic treatment and she is also on Lovenox. LDH level is at 2015. CRP level is down to 151. She is going to undergo hemodialysis today. No altered mentation pH is resting calm and comfortable in her bed. She remains on Decadron. She remains on Remdesivir 12/28/2019, the patient is still on in the intensive care unit on 100% nonrebreather facemask and this is a 15 L of oxygen by nasal cannula. Note that the patient was on BiPAP earlier and the patient was switched to 100% nonrebreather along with a high flow oxygen and she was able to maintain a saturation of high 80s low 90%. The patient is on day 5 treatment with Remdesivir and Decadron.. The patient also has had a dose of convalescent plasma. The patient underwent hemodialysis yesterday with a total of 2 L of ultrafiltration. She is doing well. Electrodes are all within normal limits. BUN is at 80 with a creatinine of 3.7. The patient also has an LDH of 2127, CRP of 86, AST of 48, ALT of 26, and the patient is afebrile at this point and she is hemodynamically stable. She is tolerating some liquid diet at this point in time. No nausea. No vomiting. No diarrhea. No abdominal pain. No altered mentation. Chest x-ray from yesterday showed diffuse bilateral pulmonary infiltrates which were rather stable, probably somewhat improved compared to the earlier chest x-ray. 12/29/2019, the patient is awake and alert and she is in her left side which is asleep spot for her in the patient's oxidation improved when she is lying in her left. She is on 100% nonrebreather facemask and she is also on 15 L of oxygen by nasal cannula. Her pulse ox was around 96%. I gave her a trial. I removed the nasal cannula and The patient wouldn't 100% nonrebreather facemask. She is going to require hemodialysis. Her chest x-ray showing still bilateral pulmonary infiltrates consistent with Covid 19 related pneumonia. She has been treated for this infection and she has completed the course of Remdesivir and Decadron is still being utilized at a dose of 6 mg IV push every 24 hours. She has also received a total of 2 doses of convalescent immunoglobulins. She is afebrile. Most recent inflammatory markers from today shows a LDH level of 1832, pro-calcitonin 3.12, CRP of 156.9 and a ferritin level of 902. Note that her L DH has declined, C-reactive protein has increased and the Pronestyl level is gradually improving. Her d-dimer is also elevated at 11.6. Her pro-calcitonin level does not reflect infection and think it's related to her renal failure. Her white cell count is at 7.4. 7 to communicate. No major respiratory decompensation over the past 24 hours. In fact the patient is feeling slightly better on today's evaluation. Reevaluated today on 12/30/19, patient remains in the ICU, on 15 L high flow as well as 100% non-rebreather mask, O2 saturation is running between 87-95% at best. Chest x-ray continues to show bilateral interstitial infiltrates, questionable underlying interstitial edema, hence am recommending more dialysis and ultrafiltration to be done. Patient already received remdwsivir, and convalescent plasma. She is also on Decadron and Lovenox. Yesterday she had hemodialysis, and 2 L were removed. Her IV fluid presently at KVO. WBC count is 9 hemoglobin is 11.4. Elective lites are normal renal profile showed a BUN of 71 creatinine of 3.79 LDH is 1699 and C-reactive protein is 172.3 significantly elevated. Chest x-ray as noted above. Reevaluated today on 12/31/19, agent remains in the ICU, remains on BiPAP, switched yesterday from non-rebreather mask to a BiPAP, and she had follow-up ABG with seems to be much better than expected. PO2 of 160 pCO2 of 39 pH of 7.38 was noted. Remind you patient received hemodialysis earlier today, and I believe most likely the ultrafiltration helped significantly. Patient was earlier today on a nonrebreather mask, and 15 L high flow nasal cannula, and O2 saturation was ranging between 86 up to 94% at best. Patient is not eating much, may have to consider a nasogastric tube and feeding to the patient that way if doesn't eat just for nutritional support. Now that the patient is on BiPAP, she seems to be doing much better, and I will keep her on BiPAP for today. CBC is relatively normal. D-dimer remains elevated at 7.91. Basic metabolic profile is normal however cusp is 5.5, BUN is 88 creatinine 4.39. Patient was reevaluated today on 01/01/20, patient remains in the ICU, she is on BiPAP, IPAP of 12 EPAP of 6, FiO2 is at 80%. Maintaining adequate O2 saturation anywhere between 95-96%. Patient seems to be comfortable, so far no plans to intubate the patient since he is holding. Patient had hemodialysis yesterday, and 530 MLS were removed. Chest x-ray is showing improvement. Nephrology is having issues with her hemodialysis catheter, not functioning properly, may have to be changed to be able to be dialyzed. Hemodynamically the patient is stable, all her medications were reviewed today, patient remains on Lasix at 80 mg IV push every 12 hours. Patient did receive remdesivir, she also received conva lescent plasma. Remains on Decadron, and on Lovenox. Objective - Vital Signs Vital signs: Vital Signs Temp 97.6 F 01/01/20 12:00 Pulse 89 01/01/20 13:00 Resp 10 L 01/01/20 13:00 BP 117/67 01/01/20 13:00 Pulse Ox 95 01/01/20 13:00 Intake & Output 11/01/01/20 01/01/20 18:59 06:59 18:59 Output Total 423 320 0 Balance -423 -320 0 Weight 84.3 kg 84.3 kg Output: Urine 140 70 0 Hemodialysis 283 250 Other: Voiding Method Indwelling Catheter Indwelling Catheter Indwelling Catheter - Exam Physical Exam: Revealed 79-year-old female on BiPAP, in no distress. Head: Atraumatic, normocephalic. HEENT:[Neck is supple.] [No neck masses.] [No thyromegaly.] [No JVD.] Chest: [Symmetrical expansion, crackles at the bases bilaterally. No rhonchi and no wheezes. Cardiac Exam: [Normal S1 and S2, no S3 gallop, no murmur.] Abdomen: [Soft, nontender, no megaly, no rebound, no guarding, normal bowel sounds.] Extremities: [No clubbing, no edema, no cyanosis.] Neurological Exam: [No focal neurologic deficit.] Alert oriented 3. Psychiatric: Normal mood, affect and normal mental status examination. Skin: No rashes. - Labs CBC & Chem 7: 01/01/20 03:10 01/01/20 08:09 Labs: Abnormal Lab Results - Last 24 Hours (Table) 12/31/19 01/01/20 01/01/20 Range/Units 21:00 03:10 03:10 WBC 11.7 H (3.8-10.6) k/uL Hgb 11.3 L (11.4-16.0) gm/dL MCHC 30.9 L (31.0-37.0) g/dL RDW 18.4 H (11.5-15.5) % Neutrophils # 10.7 H (1.3-7.7) k/uL Lymphocytes # 0.6 L (1.0-4.8) k/uL Sodium (137-145) mmol/L Potassium (3.5-5.1) mmol/L Carbon Dioxide (22-30) mmol/L BUN (7-17) mg/dL Creatinine (0.52-1.04) mg/dL Glucose (74-99) mg/dL POC Glucose (mg/dL) 144 H (75-99) mg/dL Calcium (8.4-10.2) mg/dL AST (14-36) U/L ALT (4-34) U/L Lactate Dehydrogenase (313-618) U/L C-Reactive Protein (<10.0) mg/L Albumin (3.5-5.0) g/dL Prealbumin 11.0 L (18.0-42.0) mg/dL 01/01/20 01/01/20 01/01/20 Range/Units 07:04 08:09 12:01 WBC (3.8-10.6) k/uL Hgb (11.4-16.0) gm/dL MCHC (31.0-37.0) g/dL RDW (11.5-15.5) % Neutrophils # (1.3-7.7) k/uL Lymphocytes # (1.0-4.8) k/uL Sodium 135 L (137-145) mmol/L Potassium 5.5 H (3.5-5.1) mmol/L Carbon Dioxide 19 L (22-30) mmol/L BUN 104 H* (7-17) mg/dL Creatinine 5.59 H (0.52-1.04) mg/dL Glucose 152 H (74-99) mg/dL POC Glucose (mg/dL) 148 H 149 H (75-99) mg/dL Calcium 10.8 H (8.4-10.2) mg/dL AST 366 H (14-36) U/L ALT 228 H (4-34) U/L Lactate Dehydrogenase 2779 H (313-618) U/L C-Reactive Protein 177.9 H (<10.0) mg/L Albumin 2.9 L (3.5-5.0) g/dL Prealbumin (18.0-42.0) mg/dL Assessment and Plan Assessment: Impression: Acute hypoxic respiratory failure secondary to covid 19 pneumonitis. Chronic kidney disease stage IV, on hemodialysis. Chronic diastolic congestive heart failure Mild to moderate mitral regurgitation. Benign essential hypertension. Dyslipidemia. History of gout. Chronic anemia. Thrombocytopenia secondary to viral infection. Recommendation: Continue BiPAP , at this point no need for intubation mechanical ventilation. Continue Decadron. Patient finished the courses of remdesivir and convalescent plasma. Continue vitamin C him a D and melatonin as well as Pepcid. Continue dialysis and ultrafiltration. Continue Lovenox for elevated d-dimer. We'll continue to monitor in the ICU. Critical care time is 32 minutes Time with Patient: Greater than 30
[2020-01-01] MEDS ORDERED: CALCITONIN INJ 200 UNIT/ML (MDV) VIAL SQ ONE (16:00)
--- NOTE | 2020-01-01 17:06 | P.PN ---
Subjective Progress Note Date: 01/01/20 Patient seen and examined. Having difficulty with catheter. She lays on her left in a curled up position. Still remained remaining dependent on BiPAP Objective - Vital Signs Vital signs: Vital Signs Temp 97.6 F 01/01/20 16:00 Pulse 92 01/01/20 16:00 Resp 18 01/01/20 16:00 BP 127/73 01/01/20 16:00 Pulse Ox 90 L 01/01/20 16:00 Intake & Output 12/31/19 01/01/20 01/01/20 18:59 06:59 18:59 Output Total 423 320 10 Balance -423 -320 -10 Weight 84.3 kg 84.3 kg Output: Urine 140 70 10 Hemodialysis 283 250 0 Other: Voiding Method Indwelling Catheter Indwelling Catheter Indwelling Catheter - Exam Lethargic, sleepy female on continuous BiPAP. Heart regular. Decreased and coarse breath sounds. Abdomen is soft. Left upper extremity graft is occluded. Right groin catheter in place with inability to aspirate or flush well - Labs CBC & Chem 7: 01/01/20 03:10 01/01/20 08:09 Labs: Abnormal Lab Results - Last 24 Hours (Table) 12/31/19 01/01/20 01/01/20 Range/Units 21:00 03:10 03:10 WBC 11.7 H (3.8-10.6) k/uL Hgb 11.3 L (11.4-16.0) gm/dL MCHC 30.9 L (31.0-37.0) g/dL RDW 18.4 H (11.5-15.5) % Neutrophils # 10.7 H (1.3-7.7) k/uL Lymphocytes # 0.6 L (1.0-4.8) k/uL Sodium (137-145) mmol/L Potassium (3.5-5.1) mmol/L Carbon Dioxide (22-30) mmol/L BUN (7-17) mg/dL Creatinine (0.52-1.04) mg/dL Glucose (74-99) mg/dL POC Glucose (mg/dL) 144 H (75-99) mg/dL Calcium (8.4-10.2) mg/dL AST (14-36) U/L ALT (4-34) U/L Lactate Dehydrogenase (313-618) U/L C-Reactive Protein (<10.0) mg/L Albumin (3.5-5.0) g/dL Prealbumin 11.0 L (18.0-42.0) mg/dL 01/01/20 01/01/20 01/01/20 Range/Units 07:04 08:09 12:01 WBC (3.8-10.6) k/uL Hgb (11.4-16.0) gm/dL MCHC (31.0-37.0) g/dL RDW (11.5-15.5) % Neutrophils # (1.3-7.7) k/uL Lymphocytes # (1.0-4.8) k/uL Sodium 135 L (137-145) mmol/L Potassium 5.5 H (3.5-5.1) mmol/L Carbon Dioxide 19 L (22-30) mmol/L BUN 104 H* (7-17) mg/dL Creatinine 5.59 H (0.52-1.04) mg/dL Glucose 152 H (74-99) mg/dL POC Glucose (mg/dL) 148 H 149 H (75-99) mg/dL Calcium 10.8 H (8.4-10.2) mg/dL AST 366 H (14-36) U/L ALT 228 H (4-34) U/L Lactate Dehydrogenase 2779 H (313-618) U/L C-Reactive Protein 177.9 H (<10.0) mg/L Albumin 2.9 L (3.5-5.0) g/dL Prealbumin (18.0-42.0) mg/dL Assessment and Plan Assessment: End-stage renal disease on dialysis Malfunctioning line Covid 19 Plan: At this point the catheter was exchanged sterilely via Seldinger technique to a shorter catheter and thought that maybe issues kinking this off with her ways of resting. Both ports flushed well. The red port did not aspirate the best, the third port aspirated and flushed freely. We will try to run some fluid through the distal port to keep the area open. Is uncertain if there is some degree of thrombus distally causing this occlusion. The patient currently is too unstable to go for a tunneled dialysis catheter placement given she is dependent on a BiPAP machine currently
[2020-01-01 18:12] LABS: Glucose,Whole Blood 114 mg/dL (75-99)
[2020-01-01] MEDS ORDERED: SODIUM BICARB 8.4% 50 ML SYR (1 MEQ/ML) ONE (18:30)
[2020-01-01] MEDS ORDERED: EPINEPHrine 10 ML SYRINGE (0.1 MG/ML) ONE (18:30)
[2020-01-01] MEDS ORDERED: propofoL 100 ML IV ONE (18:56)
--- NOTE | 2020-01-01 18:58 | P.PN ---
Progress Note - Text Progress Note Date: 01/01/20 Code Blue Note: Arrive to room to find that patient had already achieved ROSC. Per nursing fabby ent became bradycardiac with agonal respiration and then went into PEA. She received 1 dose of epi and 2 minutes of CPR with ROSC. DOwn time 4 minutes. 1 Amp bicarb ordered on arrival. Patient intubated by ART THERAPIST, OR placed. BS 10 minutes prior to code 114. Patient then had dropping HR and tready pulse but no detectable BP. She was given 0.5 amp of epi. Her BP stable and pulse 120-140 and regular. Initial vent setting 20/400/5/100. See code record for further details. DX: Cardiac arrest, COVID 19 pneumonia, ESRD - CXR ordered and pending - Stat BMP and CBC ordered, however code appeared to driven respiratory mechanism. Report given to Dr. Haidar. VELAZQUEZ in 30 minutes Nursing will update admitting physician and family. A total of 32 minutes of critical care time was spent on this complex patient: DX: Cardiopulmonary arrest.
--- NOTE | 2020-01-01 19:23 | XR ---
EXAMINATION TYPE: XR chest 1V portable DATE OF EXAM: 01/01/2020 COMPARISON: Today HISTORY: Respiratory failure TECHNIQUE: FINDINGS: The endotracheal tube is 3.5 cm from the jalyn. There is diffuse pulmonary edema. There is nasogastric tube in the stomach. Heart is slightly enlarged. IMPRESSION: Diffuse pulmonary edema increased slightly compared to exam this morning. Endotracheal tu be in good position. This could relate to RDS or congestive heart failure.
[2020-01-01 19:26] LABS: ABG Base Excess -17.4 mmol/L; ABG HCO3 12 mmol/L (21-25); ABG Oxygen Saturation 91.9 % (94-97); ABG PCO2 36 mmHg (35-45); ABG PO2 88 mmHg (83-108); ABG TCO2 13 mmol/L (19-24); Allen Test Performed? Yes
[2020-01-01 19:28] LABS: ABG PH 7.13 (7.35-7.45)
[2020-01-01] MEDS ORDERED: NOREPINEPHRINE 4 MG in SODIUM CHLORIDE 0.9% 250 ML IV SCH (19:30)
[2020-01-01 19:33] LABS: Magnesium 2.7 mg/dL (1.6-2.3); Potassium 5.7 mmol/L (3.5-5.1)
[2020-01-01 19:41] LABS: Phosphorus 12.6 mg/dL (2.5-4.5)
[2020-01-01 19:51] LABS: Anisocytosis Slight; HCT 29.5 % (34.0-46.0); Hypochromasia Slight; MCH 25.9 pg (25.0-35.0); MCHC 29.9 g/dL (31.0-37.0); MCV 86.6 fL (80.0-100.0); Mean Platelet Volume 11.8; Platelet Count 243 k/uL (150-450); RDW 18.4 % (11.5-15.5); WBC 20.1 k/uL (3.8-10.6)
[2020-01-01 19:58] LABS: HGB 8.8 gm/dL (11.4-16.0)
[2020-01-01] MEDS ORDERED: CHLORHEXIDINE GLUCONATE 15 ML CUP MUCOUS MEM SCH (21:00)
[2020-01-01] MEDS ORDERED: INSULIN REGULAR 100 UNIT/ML VIAL IV STA (21:00)
[2020-01-01] MEDS ORDERED: DEXTROSE 50% SYRINGE 50 ML IVP STA (21:00)
[2020-01-02 00:16] LABS: Protein, Total 5.8 g/dL (6.2-8.2)
[2020-01-02 01:11] VITALS: BP 57/27; PULSE 96; RESP 35; TEMP 97.6
--- NOTE | 2020-01-02 01:12 | P.EN ---
Code Claudia Team note Code claudia activated @ 2131. As per the CLASSIFIER OPERATOR, the patient had become bradycardic and had lost her pulse. Arrived on the scene at 2133. Made aware that the family had opted to halt further interventions after 2 minutes of CPR and had received 1 IVP epinephrine. The primary team and the hog feeder were notified. The patient at 2240.
--- NOTE | 2020-01-02 13:52 | P.DS ---
Providers Date of admission: 12/22/19 19:05 Expected date of discharge: 01/01/20 Attending physician: Shimon Angeles Consults: 12/22/19 19:05 Consult Physician Stat Consulting Provider: Justin Florence Consult Reason/Comments: ICU Do you want consulting provider notified?: Already Contacted Consult Physician Stat Consulting Provider: Filomena Zamarripa Consult Reason/Comments: pulmoary edema Do you want consulting provider notified?: Yes 12/22/19 20:38 Consult Physician Routine Consulting Provider: Venu Burr Consult Reason/Comments: Afib Do you want consulting provider notified?: Yes, Notify in am 12/31/19 11:12 Consult Physician Routine Consulting Provider: Lex Gaines Consult Reason/Comments: Temporary dialysis catheter Do you want consulting provider notified?: Already Contacted Primary care physician: Shimon Angeles Discharge summary. Patient seen and evaluated on 01/01/2020 prior to the dialysis. Patient had his left arm AV shunt has been clogged, subsequently consulted the vascular surgeon, who placed a femoral dialysis catheter in the right groin. operations support manager tried to do will the process with failure, they called again the vascular surgeon who did adjust the catheter. And then they did the hemodialysis on the afternoon. With the first code called after the patient crashed down with hypotension stopped the dialysis and the resuscitate the patient able to return her heart rate and breathing. Within a few minutes she crashed again for the second code and the family was at bedside and requested no more resuscitation, patient become hypotensive and bradycardic and at 10:41 PM Final diagnosis: #1 disposition . #2 Covid19 pneumonia with acute hypoxic respiratory failure in spite of using the current regimen for that treatment. #3 acute hypoxic respiratory failure with the underlying pulmonary edema on admission and volume overload. #4 acute kidney injury, and neither end-stage renal disease, subsequent hemodialysis was started on that 16 of December 2019 #5 A-V shunt on the left arm clogged on 12/31/2019. #6 Famularo catheter for hemodialysis placed on 01/01/2020. #7 Coded 2 with hemodynamic instability and subsequent bradycardia and patient on 10:40 1 PM Patient Condition at Discharge: Serious Plan - Discharge Summary New Discharge Prescriptions: Discontinued Gabapentin [Neurontin] 300 mg PO TID Atorvastatin [Lipitor] 20 mg PO DAILY amLODIPine [Norvasc] 10 mg PO HS Levothyroxine Sodium 150 mcg PO QAM hydrALAZINE HCL [Apresoline] 100 mg PO TID Furosemide [Lasix] 20 mg PO DAILY predniSONE See Taper PO DIRECTED Atorvastatin Calcium [Lipitor] 20 mg PO DAILY prednisoLONE ACETATE [Pred Forte 1%] 1 drop BOTH EYES TID Follow up Appointment(s)/Referral(s): Shimon Angeles MD [Primary Care Provider] - 1-2 days Care Plan Goals (MU): Family at bedside, in ICU, patient 10:41. P.m. coded twice, subsequently become hypotensive and bradycardia and in the ICU.
[2020-01-03 08:40] LABS: Angiotensin-1 Converting Enz. 32 U/L (8-52)
[2020-01-03 14:01] LABS: Vitamin D, 1, 25-Dihydroxy 33 pg/mL (20 - 79)
--- NOTE | 2020-01-04 07:22 | CDI ---
Documentation Clarification Form Date: 01/04/2020 07:08:43 AM From: Mona Castellanos RN, CCDS Admit Date: 12/22/2019 07:05:00 PM Patient Name: Sujey Liao Visit Number: [id number] Discharge Date: 01/01/2020 10:41:00 PM ATTENTION: The Clinical Documentation Specialists (CDI) and [facility] Coding Staff appreciate your assistance in clarifying documentation. Please respond to the clarification below the line at the bottom and electronically sign. The CDI & [facility] Coding staff will review the response and follow-up if needed. Please note: Queries are made part of the Legal Health Record. If you have any questions, please contact the author of this message via ITS. Dr. Shimon Angeles Hypotension has been noted in and HD patient with dialysis and s/p Code Blue requiring vasopressors. Please provide further specificity. 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 Within a few minutes she crashed again for the second code and the family was at bedside and requested no more resuscitation, patient become hypotensive and bradycardic and at 10:41 PM." 12/31 2099 Vitals: HR 109, RR 30, B/P 87/42, SPo2 84% on 100 % MV 12/22 Echo: EF 50-55% with severe LVH Other current comorbid conditions: MAXINE with ATN on CKD stage 4, Acute on Chronic Diastolic CHF, Acute hypoxic Respiratory Failure- BiPAP Dependant Documented Infectious Process: Covid 19 Pneumonia Treatment: 12/31 1929 Levophed Gtt titrate for B/P Hemodialysis stopped after 1st code blue In your professional opinion, can you please further specify the cause of the hypotension if known? Septic Shock Suspected or known causative organism Any associated organ failure Cardiogenic Shock Cause Hypovolemic Shock Cause Other, please specify Unable to determine (Last Revision: November 2016) Organ failure, with near end-stage renal failure on dialysis coded twice. Underlying Covid 19 pneumonia Acute hypoxic failure due to Covid 19 infection MTDD
--- NOTE | 2020-01-05 07:27 | CDI ---
Documentation Clarification Form Date: 01/05/2020 07:15:09 AM From: Mona Castellanos RN, CCDS Admit Date: 12/22/2019 07:05:00 PM Patient Name: Sujey Liao Visit Number: [id number] Discharge Date: 01/01/2020 10:41:00 PM ATTENTION: The Clinical Documentation Specialists (CDI) and [facility] Coding Staff appreciate your assistance in clarifying documentation. Please respond to the clarification below the line at the bottom and electronically sign. The CDI & [facility] Coding staff will review the response and follow-up if needed. Please note: Queries are made part of the Legal Health Record. If you have any questions, please contact the author of this message via ITS. Dr. Shimon Angeles Atrial Fibrillation is documented in the H&P and requires further specificity. History/Risk Factors: CKD stage 4, Atrial Fib, Chronic Diastolic CHF Clinical Indicators: 12/21 H&P: "Acute pulmonary edema and the etiology could be associated with sudden onset of atrial fibrillation, however, is not atrial fibrillation at the time of presentation in the ER and it is tachycardia only." EKG & telemetry: ST with PAC's, NSR with PAC's Treatment: Consults: Cardiology- never mentions Atrial Fib Lopressor 25 mg PO BID Apresoline 100 mg PO TID No documented home medications on this patient In your professional opinion, can you please clarify the type of Atrial Fibrillation, if known? Chronic/Permanent Paroxysmal Persistent Other, please specify Unable to determine (Last Revision: May 2017) Paroxysmal atrial fib on admission resolved subsequently and become sinus rhythm and seen by cardiology. AN
[2020-01-06 12:37] LABS: Albumin 2.29 g/dL (3.80-4.90); Gamma Globulin 1.53 g/dL (0.70-1.50)
== END 2020-01-01 22:41 | disposition expired | DRG 208 ==
LOC: EC 17:38 → 2SICU 19:05
PROVIDERS: ADMIT Internal Medicine; ATTEND Internal Medicine
DX: U07.1 COVID-19 (principal); I50.33 Acute on chronic diastolic (congestive) heart failure; N17.0 Acute kidney failure with tubular necrosis; J96.01 Acute respiratory failure with hypoxia; J12.89 Other viral pneumonia; N18.6 End stage renal disease; E87.2 Acidosis; I13.2 Hypertensive heart and chronic kidney disease with heart failure and with stage 5 chronic kidney disease, or end stage renal disease; T82.41XA Breakdown (mechanical) of vascular dialysis catheter, initial encounter; I46.9 Cardiac arrest, cause unspecified; R00.1 Bradycardia, unspecified; I95.9 Hypotension, unspecified; R34 Anuria and oliguria; E78.5 Hyperlipidemia, unspecified; I48.0 Paroxysmal atrial fibrillation; E83.51 Hypocalcemia; E83.52 Hypercalcemia; E87.5 Hyperkalemia; Z99.2 Dependence on renal dialysis; D63.1 Anemia in chronic kidney disease; I08.1 Rheumatic disorders of both mitral and tricuspid valves; D69.59 Other secondary thrombocytopenia; D72.810 Lymphocytopenia; E03.9 Hypothyroidism, unspecified; E11.22 Type 2 diabetes mellitus with diabetic chronic kidney disease; M10.9 Gout, unspecified; I27.20 Pulmonary hypertension, unspecified; N25.0 Renal osteodystrophy; E83.39 Other disorders of phosphorus metabolism; Z79.01 Long term (current) use of anticoagulants; Z79.52 Long term (current) use of systemic steroids; Z79.82 Long term (current) use of aspirin; Z79.899 Other long term (current) drug therapy; Z91.09 Other allergy status, other than to drugs and biological substances; Z98.891 History of uterine scar from previous surgery; Z98.51 Tubal ligation status; Z90.710 Acquired absence of both cervix and uterus; Z83.3 Family history of diabetes mellitus; Z82.49 Family history of ischemic heart disease and other diseases of the circulatory system; Z82.3 Family history of stroke; Z98.890 Other specified postprocedural states; Z80.42 Family history of malignant neoplasm of prostate; Z80.0 Family history of malignant neoplasm of digestive organs
CPT/HCPCS: 36410; 36415; 36600; 71045; 76937; 80048; 80053; 80074; 82164; 82306; 82550; 82652; 82728; 82805; 83519; 83605; 83615; 83735; 83880; 83970; 84100; 84132; 84134; 84145; 84165; 84443; 84484; 85025; 85027; 85379; 85384; 85610; 85730; 86140; 86334; 86335; 86704; 86706; 86850; 86900; 86901; 87340; 87635; 90935; 93005; 93306; 94002; 94660; 96372; 96374; 96375; 96376; 99291